=== PATIENT | female | born 1960 | race Caucasian/White ===

== ENCOUNTER 2018-04-04 18:45 | Emergency (ER) | payer MEDICARE ==
[2018-04-04] MEDS ORDERED: TORAdol 30 mg Injection IM ONE (19:16)
[2018-04-04] MEDS ORDERED: Tylenol #3 Tablet PO ONE (19:17)
[2018-04-04] MEDS ORDERED: AMOXIL 500 MG PO ONE (19:17)
--- NOTE | 2018-04-04 19:20 | ERPHSYRPT ---
- History of Present Illness Time Seen by Provider: 04/04/18 19:05 Source: patient Exam Limitations: clinical condition Patient Subjective Stated Complaint: Pt arrives to ER via EMS from home with left sided dental pain for past 3-4 days, became worse last night. Denies emergency, states called 911 because she does not have a car. Has not called Dentist or PCP. Triage Nursing Assessment: no swelling or difficulty breathing or swallowing. Physician History: PATIENT WITH A HISTORY OF DIABETES, HYPERTENSION COMPLAINS OF BILATERAL JAW PAIN , OVER THE PAST 3 DAYS. DENIES SINUS PRESSURE, SORETHROAT, FEVER, CHILLS OR COUGH. Timing/Duration: gradual onset Severity: moderate ENT Location: facial, dental Prearrival Treatment: no prearrival treatment Modifying Factors: Improves With: nothing Associated Symptoms: ear pain (L) Allergies/Adverse Reactions: No Known Drug Allergies Allergy (Verified 04/04/18 18:49) Home Medications: Fenofibrate,Micronized 145 mg* [Tricor 145 MG] 145 mg PO HS 10/21/13 [History ] Gabapentin 600 mg PO TID 10/21/13 [History] Lisinopril 20 mg [Zestril 20 MG] 20 mg PO DAILY 10/21/13 [History] Metformin HCl 1000 mg [Glucophage 1000 MG] 1,000 mg PO BID 10/21/13 [History] Paroxetine HCl 20 mg PO DAILY 10/21/13 [History] Pravastatin Sodium 20 mg PO DAILY 10/21/13 [History] Insulin Aspart [NovoLOG Insulin] 60 unit SQ UD 07/09/16 [History] Insulin Degludec [Tresiba Flextouch U-100] 160 unit SQ UD 07/09/16 [History] Carvedilol [Coreg] 6.25 mg PO DAILY 03/29/18 [History] Exenatide Microspheres [Bydureon Bcise] 2 mg SQ 04/04/18 [History] Oxybutynin Chloride [Oxybutynin Chloride ER] 10 mg PO 04/04/18 [History] Hx Tetanus, Diphtheria Vaccination/Date Given: Yes Hx Influenza Vaccination/Date Given: Yes Hx Pneumococcal Vaccination/Date Given: No - Review of Systems Constitutional: No Fever, No Chills Eyes: No Symptoms Ears, Nose, & Throat: No Symptoms, Other (DENTAL PAIN) Respiratory: Stridor, No Cough, No Dyspnea Cardiac: No Chest Pain, No Edema, No Syncope Abdominal/Gastrointestinal: No Abdominal Pain, No Nausea, No Vomiting, No Diarrhea Genitourinary Symptoms: No Dysuria Musculoskeletal: No Back Pain, No Neck Pain Skin: No Rash Neurological: No Dizziness, No Focal Weakness, No Sensory Changes Psychological: No Symptoms Endocrine: No Symptoms All Other Systems: Reviewed and Negative - Past Medical History Pertinent Past Medical History: Yes Neurological History: No Pertinent History ENT History: No Pertinent History Cardiac History: High Cholesterol, Hypertension Respiratory History: Sleep Apnea Endocrine Medical History: Diabetes Type I Musculoskeletal History: No Pertinent History GI Medical History: No Pertinent History, Hemorrhoids History: No Pertinent History Psycho-Social History: Anxiety Female Reproductive Disorders: No Pertinent History - Past Surgical History Past Surgical History: Yes Neuro Surgical History: No Pertinent History Cardiac: No Pertinent History Respiratory: No Pertinent History Gastrointestinal: Cholecystectomy Genitourinary: No Pertinent History Musculoskeletal: Amputation, Prosthesis Female Surgical History: Hysterectomy Other Surgical History: T & A, lt bka - Social History Smoking Status: Former smoker How long have you smoked: 30 years Exposure to second hand smoke: Yes Drug Use: none Patient Lives Alone: No - Female History Hx Now: No - Nursing Vital Signs Nursing Vital Signs: Initial Vital Signs Temperature 98.8 F 04/04/18 18:52 Pulse Rate 63 04/04/18 18:52 Respiratory Rate 18 04/04/18 18:52 Blood Pressure 131/73 04/04/18 18:52 O2 Sat by Pulse Oximetry 94 L 04/04/18 18:52 Pain Scale Pain Intensity 10 - Physical Exam General Appearance: no apparent distress Eye Exam: bilateral eye: normal inspection, PERRL, EOMI Ear Exam: bilateral ear: auricle normal, canal normal, TM normal Throat Exam: pharynx normal (NO GINGIVAL SWELLING OR TENDERNESS), dental tenderness (WIDESPREAD DENTAL CARIES) Neck Exam: normal inspection Cardiovascular/Respiratory Exam: chest non-tender, normal breath sounds SpO2 Interpretation: normal SpO2: 94 Oxygen Delivery: Room Air Ordered Tests: Medication Summary Discontinued Medications Generic Name Dose Route Start Last Admin Trade Name Freq PRN Reason Stop Dose Admin Acetaminophen/Codeine Phosphate 2 tab 04/04/18 19:17 Tylenol #3 Tablet PO 04/04/18 19:18 SENT HOME W/ PATIENT ONE Amoxicillin 500 mg 04/04/18 19:17 Amoxil 500 Mg PO 04/04/18 19:18 STAT ONE Ketorolac Tromethamine 60 mg 04/04/18 19:16 Toradol 30 Mg Injection IM 04/04/18 19:17 STAT ONE - Progress Progress: pain not gone completely Progress Note: 04/04/18 19:23 TORADOL 60MG IM, AMOXICILLIN 500MG ORALLY Counseled pt/family regarding: diagnosis, need for follow-up - Departure Time of Disposition: 19:30 Departure Disposition: Home Clinical Impression: WIDESPREAD DENTAL CARIES Condition: Stable Critical Care Time: No Referrals: ROGERIO WHITING NP [Primary Care Provider] - Additional Instructions: TORADOL 10 MG EVERY 6 HOURS NEEDED OR PAIN. TYLENOL #3 EVERY 4 HOURS FOR SEVERE PAIN. ANTIBIOTIC AMOXICILLIN 500MG EVERY 8 HOURS FOR 10 DAYS. CONSULT A DENTIST FOR FOLLOWUP. Prescriptions: Ketorolac Tromethamine [Toradol] 10 mg PO Q6H PRN PRN #20 tablet PRN Reason: Pain Amoxicillin 500 mg PO TID #30 tablet
[2018-04-04] MEDS ORDERED: TORAdol 30 mg Injection ONE (19:24)
[2018-04-04] MEDS ORDERED: AMOXIL 500 MG ONE (19:25)
[2018-04-04] MEDS ORDERED: Tylenol #3 Tablet ONE (19:25)
[2018-04-04 19:59] VITALS: BP 102/72; PULSE 71; O2SAT 90
== END 2018-04-04 20:01 | disposition home or self-care (01) ==
LOC: ED 18:45
DX: K02.9 Dental caries, unspecified (principal); R68.84 Jaw pain; H92.02 Otalgia, left ear; Z79.899 Other long term (current) drug therapy
CPT/HCPCS: 96372; 99284; J1885; A9270-GY

== ENCOUNTER 2019-12-24 13:42 | Inpatient (IN) | payer MEDICARE ==
[2019-12-24] MEDS ORDERED: Sodium Chloride 0.9% 1000 ML 1,000 ML IV STA (14:01)
[2019-12-24] MEDS ORDERED: Sodium Chloride 0.9% 1000 ML 1,000 ML ONE (14:05)
[2019-12-24 14:52] LABS: Absolute Neutrophil Ct (ANC) 9.82 (1.4-6.9); BASOPHIL % 0.1 % (0.0-0.4); Basophil (Absolute #) 0.01 (0-0.4); Eosinophil % 0.1 % (0.00-5.0); Eosinophil (Absolute #) 0.01 (0-0.5); Hematocrit 56.3 % (35-47); Hemoglobin 17.7 gm/dl (12.0-16.0); Lymphocyte (Absolute #) 0.78 (1.0-4.6); Lymphocytes % 6.9 % (24.0-44.0); Mean Cell Volume 86.6 fl (78-100); Mean Corpuscular Hemoglobin 27.2 pg (26-32); Mean Corpuscular Hgb Concent. 31.4 g/dl (32-36); Mean Platelet Volume 10.8 fl (7.5-11.0); Monocyte (Absolute #) 0.67 (0.0-1.3); Monocytes % 5.9 % (0.0-12.0); Platelet Count 179 K/mm3 (150-450); Red Cell Distribution Width 19.8 % (11.5-14.0); White Blood Count 11.3 K/mm3 (4.0-10.5)
[2019-12-24 15:03] LABS: Appearance SLIGHTLY CLOUDY (CLEAR); Bacteria MODERATE /HPF (NEGATIVE); Bilirubin NEGATIVE (NEGATIVE); Blood LARGE Ery/ul (0-5); Glucose >=500 mg/dL (NEGATIVE); Ketones TRACE (NEGATIVE); Leukocyte Esterase NEGATIVE (NEGATIVE); Mucus SLIGHT /HPF (NEGATIVE); Nitrite POSITIVE (NEGATIVE); Protein,Urine Dip >=500 (Negative); Specific Gravity 1.031 (1.005-1.025); Urobilinogen NEGATIVE mg/dL (0-1)
[2019-12-24 15:04] LABS: INR 1.3 (0.8-3.0); PROTIME 14.8 SECONDS (9.95-12.35)
[2019-12-24 15:11] LABS: VBG BASE EXCESS -0.5 (-2.0-2.0); VBG CARBOXYHEMOGLOBIN 10.4 % T HGB (0.0-6.9); VBG HCO3- 23.1 meq/L (22-28); VBG HEMOGLOBIN 18.8; VBG O2 SATURATION 85.4 (95-100); VBG POTASSIUM 5.3 (3.5-5.1); VBG pH 7.44 (7.32-7.42)
[2019-12-24 15:15] LABS: Amphetamine,Urine NEGATIVE (NEGATIVE); Barbiturate,Urine NEGATIVE (NEGATIVE); Benzodiazepine,Urine NEGATIVE (NEGATIVE); Cocaine,Urine NEGATIVE (NEGATIVE); Methadone,Urine NEGATIVE (NEGATIVE); Opiate,Urine NEGATIVE (NEGATIVE); PCP,Urine NEGATIVE (NEGATIVE); THC,Urine NEGATIVE (NEGATIVE)
[2019-12-24] MEDS ORDERED: HUMULIN R IV ONE ×2 (15:23→16:51)
[2019-12-24] MEDS ORDERED: HUMULIN R ONE ×2 (15:34→17:06)
[2019-12-24 15:39] LABS: ALBUMIN 4.2 g/dL (3.5-5.0); ALKALINE PHOSPHATASE 78 U/L (38-126); AMYLASE 70 U/L (30-110); BLOOD UREA NITROGEN 28 mg/dL (7-17); CHLORIDE 100 mmol/L (98-107); Carbon Dioxide 27 mmol/L (22-30); Creatinine 1 0.66 mg/dL (0.52-1.04); Glucose 432 mg/dL (74-106); LIPASE 59 U/L (23-300); NT PRO BNP 1320 pg/mL (0-900); Potassium 4.7 mmol/L (3.5-5.1); SGOT/AST 118 U/L (14-36); SGPT/ALT 56 U/L (0-35); SODIUM 139 mmol/L (137-145); Total Protein 8.1 g/dL (6.3-8.2)
[2019-12-24 15:53] LABS: CK-Creatinine Phosphokinase 4157 U/L (30-135)
--- NOTE | 2019-12-24 16:43 | XRAY ---
Indication: Abdomen pain. Multiple contiguous axial images obtained through the abdomen and pelvis using 80 cc of Isovue 370 contrast only. Comparison: None Portion of left abdominal wall is not completely included in the [id number] due to patient body habitus. Lung bases degraded by respiration artifact. Mild bibasilar atelectasis/scarring and right lower lobe calcified granuloma. No consolidation/effusion. Heart is enlarged. Noncontrasted stomach and bowel loops appear nonobstructed. Normal appendix. No free fluid/air. Fatty hepatomegaly measuring 23 cm and previous cholecystectomy. Also 16 cm splenomegaly. No free fluid/air. 2.2 cm left adrenal fatty adenoma. Guzman balloon catheter empties the urinary bladder. Remaining liver, pancreas, spleen, adrenal glands, kidneys, and ureters appear unremarkable. Mild scattered aortoiliac calcifications. No AAA or pathologic retroperitoneal lymphadenopathy. Osseous structures intact with mild degenerative changes throughout the thoracolumbar spine. Impression: 1. Cardiomegaly without effusion. 2. Fatty hepatomegaly, splenomegaly, left adrenal adenoma, and Guzman catheter in situ. 3. Remaining CT abdomen/pelvis with conscious exam is negative.
--- NOTE | 2019-12-24 16:44 | XRAY ---
Indication: Chest pain. Comparison: None Portable chest demonstrates cardiomegaly and a few calcified granulomas and minimal bibasilar atelectasis/scarring. No focal infiltrate, consolidation, or large effusion. Bony thorax intact with mild osteopenia and mild degenerative changes. Impression: Cardiomegaly and evidence for old granulomatous disease. Negative for acute pneumonic process or CHF.
[2019-12-24] MEDS ORDERED: ROCEPHIN 1 Gm-D5w 50 ml Bag** 1 G/50 ML IVPB IV STA (17:22)
--- NOTE | 2019-12-24 17:29 | ERPHSYRPT ---
- History of Present Illness Time Seen by Provider: 12/24/19 14:30 Patient Subjective Stated Complaint: Pt presents to ER, confused and nonverbal with ER Staff. Able to shake head "yes" or "no" when asked basic questions. Triage Nursing Assessment: Pt presents to ER by ambulance. EMS states that the patient was found down in apartment unknown amount of time. Pt presents confused and disoriented. Covered in fecal matter and urine. Redness noted to groin and pressure areas from incontinence and being down on ground. Pt was found by a blele coming into apartment to work on her AC unit. Pt resp are shallow and irregular. Initial O2 saturation was 85% on room air. Pt is pale, cool, and diaphoretic. Wheezes noted in left lung. Right lung sounds clear but diminished. Pt abd soft and round. Pt does not have any noted deformity or traumatic injuries noted. Pt eyes 2mm bilaterally and sluggish Physician History: A 59-year-old female who was found down by the air conditioning man who came to her home to do some maintenance. She was found on the floor she was unresponsive initially she was covered with feces. He was last known to be normal on Tuesday and insulin-dependent diabetic. Baseline/Normal Cognition: poor alertness Current Cognition: poor alertness Allergies/Adverse Reactions: No Known Drug Allergies Allergy (Unverified 12/24/19 14:38) Hx Tetanus, Diphtheria Vaccination/Date Given: Yes Hx Influenza Vaccination/Date Given: Yes Hx Pneumococcal Vaccination/Date Given: Yes Immunizations Up to Date: Yes Travel Risk - International Travel Have you traveled outside of the country in past 3 weeks: No - Coronavirus Screening Are you exhibiting any of the following symptoms?: No Close contact with a COVID-19 positive Pt in past 14-21 Days: No - Review of Systems All Other Systems: Unable due to condition - Past Medical History Pertinent Past Medical History: Yes Cardiac History: Hypertension Endocrine Medical History: Diabetes Type II Psycho-Social History: Anxiety, Depression Other Medical History: Below knee amputation r/t diabetes - Past Surgical History Past Surgical History: Yes Gastrointestinal: Cholecystectomy Female Surgical History: Hysterectomy, Tubal Ligation Other Surgical History: below knee amputation left leg / r/t diabetes - Social History Smoking Status: Former smoker Exposure to second hand smoke: No Drug Use: none Patient Lives Alone: Yes - Nursing Vital Signs Nursing Vital Signs: Initial Vital Signs Temperature 98.8 F 12/24/19 14:00 Pulse Rate 79 12/24/19 14:00 Respiratory Rate 16 12/24/19 14:00 Blood Pressure 96/71 12/24/19 14:00 O2 Sat by Pulse Oximetry 85 L 12/24/19 14:00 - [place] Coma Scale Best Eye Response ([place]): (4) open spontaneously Best Verbal Response ([place]): (3) inappropriate words Best Motor Response ([place]): (4) withdraws to pain [place] Total: 11 - Physical Exam General Appearance: moderate distress, lethargy Eye Exam: bilateral eye: normal inspection, PERRL, EOMI Ears, Nose, Throat Exam: normal ENT inspection, moist mucous membranes Neck Exam: normal inspection, non-tender, supple Respiratory: normal breath sounds, lungs clear, airway intact, No respiratory distress Cardiovascular: tachycardia Gastrointestinal: tenderness, guarding Pelvic Exam: not done Rectal Exam: deferred Back Exam: normal inspection, normal range of motion Extremity Exam: other (BKA the left) 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 Exam: No abnormal eye position, No facial droop, No gaze palsy, No tongue deviation to R Skin Exam: other (We will type rash in the perineal area) SpO2 Interpretation: normal SpO2: 100 O2 Delivery: Nasal Cannula - Course Nursing assessment & vital signs reviewed: Yes EKG Interpreted by Me: RATE (85), NORMAL AXIS, NORMAL INTERVALS, Non-specific ST Changes - Radiology Exams Chest X-ray Interpretation: Other (CT of the abdomen pelvis no acute findings x-ray shows cardiomegaly and evidence for old granulomatous disease negative for acute process) - CT Exams Chest CT Interpretation: Other (No acute process of the abdomen and pelvis) Ordered Tests: Active Orders 24 hr Category Date Time Status ABDOMEN AND PELVIS W CONTRAST [CT] Stat Exams 12/24/19 14:01 Completed CHEST 1 VIEW (PORTABLE) Stat Exams 12/24/19 14:01 Completed HEAD WITHOUT CONTRAST [CT] Stat Exams 12/24/19 17:14 Ordered AMYLASE Stat Lab 12/24/19 14:40 Completed BLOOD CULTURE Stat Lab 12/24/19 14:40 Received CBC W DIFF Stat Lab 12/24/19 14:40 Completed CK-Creatinine Phosphokinase Stat Lab 12/24/19 14:40 Completed CMP Stat Lab 12/24/19 14:40 Completed CULTURE,URINE Stat Lab 12/24/19 Received D-DIMER QUANTITATIVE Stat Lab 12/24/19 14:40 Completed LIPASE Stat Lab 12/24/19 14:40 Completed Lactic Acid Stat Lab 12/24/19 17:04 Received Lactic Acid Urgent Lab 12/24/19 14:50 Completed MAGNESIUM Stat Lab 12/24/19 14:40 Completed NT PRO BNP Stat Lab 12/24/19 14:40 Completed PROTIME WITH INR Stat Lab 12/24/19 14:40 Completed TROPONIN Q3H Lab 12/24/19 14:40 Completed TROPONIN Q3H Lab 12/24/19 17:15 Ordered TROPONIN Q3H Lab 12/24/19 20:15 Ordered TROPONIN Q3H Lab 12/24/19 23:15 Ordered TROPONIN Q3H Lab 12/25/19 02:15 Ordered UA W/RFX UR CULTURE Stat Lab 12/24/19 Completed Urine Triage Profile Stat Lab 12/24/19 Completed VENOUS BLOOD GAS Urgent Lab 12/24/19 14:50 Completed Medication Summary Discontinued Medications Generic Name Dose Route Start Last Admin Trade Name Freq PRN Reason Stop Dose Admin Sodium Chloride 1,000 mls @ 999 mls/hr 12/24/19 14:01 12/24/19 14:06 Sodium Chloride 0.9% 1000 Ml IV 12/24/19 15:01 999 mls/hr .Q1H1M STA Administration Sodium Chloride Confirm 12/24/19 14:05 Sodium Chloride 0.9% 1000 Ml Administered 12/24/19 14:06 Dose 1,000 mls @ ud .ROUTE .STK-MED ONE Insulin Human Regular 10 unit 12/24/19 15:23 12/24/19 15:36 Humulin R IV 12/24/19 15:24 10 unit STAT ONE Administration Insulin Human Regular Confirm 12/24/19 15:34 Humulin R Administered 12/24/19 15:35 Dose 10 unit .ROUTE .STK-MED ONE Insulin Human Regular 15 unit 12/24/19 16:51 12/24/19 17:11 Humulin R IV 12/24/19 16:52 15 unit STAT ONE Administration Insulin Human Regular Confirm 12/24/19 17:06 Humulin R Administered 12/24/19 17:07 Dose 15 unit .ROUTE .STK-MED ONE Lab/Rad Data: Laboratory Result Diagrams 12/24/19 14:40 12/24/19 14:40 Laboratory Results 12/24/19 12/24/19 12/24/19 Range/Units Unknown Unknown 14:50 WBC (4.0-10.5) K/mm3 RBC (4.1-5.4) M/mm3 Hgb (12.0-16.0) gm/dl Hct (35-47) % MCV (78-100) fl MCH (26-32) pg MCHC (32-36) g/dl RDW (11.5-14.0) % Plt Count (150-450) K/mm3 MPV (7.5-11.0) fl Gran % (36.0-66.0) % Eos # (Auto) (0-0.5) Absolute Lymphs (auto) (1.0-4.6) Absolute Monos (auto) (0.0-1.3) Lymphocytes % (24.0-44.0) % Monocytes % (0.0-12.0) % Eosinophils % (0.00-5.0) % Basophils % (0.0-0.4) % Absolute Granulocytes (1.4-6.9) Basophils # (0-0.4) PT (9.95-12.35) SECONDS INR (0.8-3.0) D-Dimer (215-500) ng/mL pO2/FiO2 Ratio 100.0 % VBG pH 7.44 H (7.32-7.42) VBG pCO2 at Pat Temp 34 L (42-55) mm/Hg VBG pO2 at Pat Temp 48 H (25-40) mm/Hg VBG HCO3 23.1 (22-28) meq/L VBG O2 Sat (Edson) 85.4 L (95-100) VBG Base Excess -0.5 (-2.0-2.0) VBG Hemoglobin 18.8 VBG Carboxyhemoglobin 10.4 H* (0.0-6.9) % T HGB POC Potassium 5.3 H (3.5-5.1) Sodium (137-145) mmol/L Potassium (3.5-5.1) mmol/L Chloride (98-107) mmol/L Carbon Dioxide (22-30) mmol/L Anion Gap (5-15) MEQ/L BUN (7-17) mg/dL Creatinine (0.52-1.04) mg/dL Estimated GFR ML/MIN Glucose (74-106) mg/dL Lactic Acid (0.4-2.0) Calcium (8.4-10.2) mg/dL Magnesium (1.6-2.3) mg/dL Total Bilirubin (0.2-1.3) mg/dL AST (14-36) U/L ALT (0-35) U/L Alkaline Phosphatase (38-126) U/L Creatine Kinase (30-135) U/L Troponin I (0.000-0.034) ng/mL NT-Pro-B Natriuret Pep (0-900) pg/mL Serum Total Protein (6.3-8.2) g/dL Albumin (3.5-5.0) g/dL Amylase (30-110) U/L Lipase (23-300) U/L Urine Color YELLOW (YELLOW) Urine Appearance SLIGHTLY CLOUDY (CLEAR) Urine pH 5.0 (5-6) Ur Specific [place] 1.031 (1.005-1.025) Urine Protein >=500 (Negative) Urine Ketones TRACE (NEGATIVE) Urine Blood LARGE (0-5) Darrin/ul Urine Nitrite POSITIVE (NEGATIVE) Urine Bilirubin NEGATIVE (NEGATIVE) Urine Urobilinogen NEGATIVE (0-1) mg/dL Ur Leukocyte Esterase NEGATIVE (NEGATIVE) Urine WBC (Auto) 11-15 (0-5) /HPF Urine RBC (Auto) NONE (0-2) /HPF U Epithel Cells (Auto) NONE (FEW) /HPF Urine Bacteria (Auto) MODERATE (NEGATIVE) /HPF Urine Mucus (Auto) SLIGHT (NEGATIVE) /HPF Urine Culture Reflexed ORDERED SEPARATELY (NO) Urine Glucose >=500 (NEGATIVE) mg/dL Urine Opiates Level NEGATIVE (NEGATIVE) Ur Methadone NEGATIVE (NEGATIVE) Urine Barbiturates NEGATIVE (NEGATIVE) Ur Phencyclidine (PCP) NEGATIVE (NEGATIVE) Urine Amphetamine NEGATIVE (NEGATIVE) U Benzodiazepine Level NEGATIVE (NEGATIVE) Urine Cocaine NEGATIVE (NEGATIVE) Urine Marijuana (THC) NEGATIVE (NEGATIVE) 12/24/19 12/24/19 12/24/19 Range/Units 14:50 14:40 14:40 WBC (4.0-10.5) K/mm3 RBC (4.1-5.4) M/mm3 Hgb (12.0-16.0) gm/dl Hct (35-47) % MCV (78-100) fl MCH (26-32) pg MCHC (32-36) g/dl RDW (11.5-14.0) % Plt Count (150-450) K/mm3 MPV (7.5-11.0) fl Gran % (36.0-66.0) % Eos # (Auto) (0-0.5) Absolute Lymphs (auto) (1.0-4.6) Absolute Monos (auto) (0.0-1.3) Lymphocytes % (24.0-44.0) % Monocytes % (0.0-12.0) % Eosinophils % (0.00-5.0) % Basophils % (0.0-0.4) % Absolute Granulocytes (1.4-6.9) Basophils # (0-0.4) PT 14.8 H (9.95-12.35) SECONDS INR 1.30 (0.8-3.0) D-Dimer 2164 H* (215-500) ng/mL pO2/FiO2 Ratio % VBG pH (7.32-7.42) VBG pCO2 at Pat Temp (42-55) mm/Hg VBG pO2 at Pat Temp (25-40) mm/Hg VBG HCO3 (22-28) meq/L VBG O2 Sat (Edson) (95-100) VBG Base Excess (-2.0-2.0) VBG Hemoglobin VBG Carboxyhemoglobin (0.0-6.9) % T HGB POC Potassium (3.5-5.1) Sodium (137-145) mmol/L Potassium (3.5-5.1) mmol/L Chloride (98-107) mmol/L Carbon Dioxide (22-30) mmol/L Anion Gap (5-15) MEQ/L BUN (7-17) mg/dL Creatinine (0.52-1.04) mg/dL Estimated GFR ML/MIN Glucose (74-106) mg/dL Lactic Acid 4.1 H (0.4-2.0) Calcium (8.4-10.2) mg/dL Magnesium (1.6-2.3) mg/dL Total Bilirubin (0.2-1.3) mg/dL AST (14-36) U/L ALT (0-35) U/L Alkaline Phosphatase (38-126) U/L Creatine Kinase (30-135) U/L Troponin I 0.065 H* (0.000-0.034) ng/mL NT-Pro-B Natriuret Pep (0-900) pg/mL Serum Total Protein (6.3-8.2) g/dL Albumin (3.5-5.0) g/dL Amylase (30-110) U/L Lipase (23-300) U/L Urine Color (YELLOW) Urine Appearance (CLEAR) Urine pH (5-6) Ur Specific [place] (1.005-1.025) Urine Protein (Negative) Urine Ketones (NEGATIVE) Urine Blood (0-5) Darrin/ul Urine Nitrite (NEGATIVE) Urine Bilirubin (NEGATIVE) Urine Urobilinogen (0-1) mg/dL Ur Leukocyte Esterase (NEGATIVE) Urine WBC (Auto) (0-5) /HPF Urine RBC (Auto) (0-2) /HPF U Epithel Cells (Auto) (FEW) /HPF Urine Bacteria (Auto) (NEGATIVE) /HPF Urine Mucus (Auto) (NEGATIVE) /HPF Urine Culture Reflexed (NO) Urine Glucose (NEGATIVE) mg/dL Urine Opiates Level (NEGATIVE) Ur Methadone (NEGATIVE) Urine Barbiturates (NEGATIVE) Ur Phencyclidine (PCP) (NEGATIVE) Urine Amphetamine (NEGATIVE) U Benzodiazepine Level (NEGATIVE) Urine Cocaine (NEGATIVE) Urine Marijuana (THC) (NEGATIVE) 12/24/19 12/24/19 Range/Units 14:40 14:40 WBC 11.3 H (4.0-10.5) K/mm3 RBC 6.50 H* (4.1-5.4) M/mm3 Hgb 17.7 H (12.0-16.0) gm/dl Hct 56.3 H (35-47) % MCV 86.6 (78-100) fl MCH 27.2 (26-32) pg MCHC 31.4 L (32-36) g/dl RDW 19.8 H (11.5-14.0) % Plt Count 179 (150-450) K/mm3 MPV 10.8 (7.5-11.0) fl Gran % 87.0 H (36.0-66.0) % Eos # (Auto) 0.01 (0-0.5) Absolute Lymphs (auto) 0.78 L (1.0-4.6) Absolute Monos (auto) 0.67 (0.0-1.3) Lymphocytes % 6.9 L (24.0-44.0) % Monocytes % 5.9 (0.0-12.0) % Eosinophils % 0.1 (0.00-5.0) % Basophils % 0.1 (0.0-0.4) % Absolute Granulocytes 9.82 H (1.4-6.9) Basophils # 0.01 (0-0.4) PT (9.95-12.35) SECONDS INR (0.8-3.0) D-Dimer (215-500) ng/mL pO2/FiO2 Ratio % VBG pH (7.32-7.42) VBG pCO2 at Pat Temp (42-55) mm/Hg VBG pO2 at Pat Temp (25-40) mm/Hg VBG HCO3 (22-28) meq/L VBG O2 Sat (Edson) (95-100) VBG Base Excess (-2.0-2.0) VBG Hemoglobin VBG Carboxyhemoglobin (0.0-6.9) % T HGB POC Potassium (3.5-5.1) Sodium 139 (137-145) mmol/L Potassium 4.7 (3.5-5.1) mmol/L Chloride 100 (98-107) mmol/L Carbon Dioxide 27 (22-30) mmol/L Anion Gap 17.0 H (5-15) MEQ/L BUN 28 H (7-17) mg/dL Creatinine 0.66 (0.52-1.04) mg/dL Estimated GFR > 60.0 ML/MIN Glucose 432 H (74-106) mg/dL Lactic Acid (0.4-2.0) Calcium 10.0 (8.4-10.2) mg/dL Magnesium 2.0 (1.6-2.3) mg/dL Total Bilirubin 1.40 H (0.2-1.3) mg/dL AST 118 H (14-36) U/L ALT 56 H (0-35) U/L Alkaline Phosphatase 78 (38-126) U/L Creatine Kinase 4157 H (30-135) U/L Troponin I (0.000-0.034) ng/mL NT-Pro-B Natriuret Pep 1320 H (0-900) pg/mL Serum Total Protein 8.1 (6.3-8.2) g/dL Albumin 4.2 (3.5-5.0) g/dL Amylase 70 (30-110) U/L Lipase 59 (23-300) U/L Urine Color (YELLOW) Urine Appearance (CLEAR) Urine pH (5-6) Ur Specific [place] (1.005-1.025) Urine Protein (Negative) Urine Ketones (NEGATIVE) Urine Blood (0-5) Darrin/ul Urine Nitrite (NEGATIVE) Urine Bilirubin (NEGATIVE) Urine Urobilinogen (0-1) mg/dL Ur Leukocyte Esterase (NEGATIVE) Urine WBC (Auto) (0-5) /HPF Urine RBC (Auto) (0-2) /HPF U Epithel Cells (Auto) (FEW) /HPF Urine Bacteria (Auto) (NEGATIVE) /HPF Urine Mucus (Auto) (NEGATIVE) /HPF Urine Culture Reflexed (NO) Urine Glucose (NEGATIVE) mg/dL Urine Opiates Level (NEGATIVE) Ur Methadone (NEGATIVE) Urine Barbiturates (NEGATIVE) Ur Phencyclidine (PCP) (NEGATIVE) Urine Amphetamine (NEGATIVE) U Benzodiazepine Level (NEGATIVE) Urine Cocaine (NEGATIVE) Urine Marijuana (THC) (NEGATIVE) - Progress Progress: improved - Departure Departure Disposition: In-patient Admission Clinical Impression: Rhabdomyolysis Condition: Serious Critical Care Time: Yes Critical Care Time(excluding separately billable procedures): Critical 30-74 mins Referrals: DOCTOR,NO FAMILY [Primary Care Provider] - Instructions: Altered Mental Status (DC)
[2019-12-24] MEDS ORDERED: ROCEPHIN 1 Gm-D5w 50 ml Bag** 1 G/50 ML IVPB IV ONE (18:39)
[2019-12-24] MEDS: HUMALOG SQ PRN (19:04)
[2019-12-24] MEDS: Sodium Chloride 0.9% 1000 ML 1,000 ML IV SCH (21:43)
[2019-12-24] MEDS: NYSTOP 30 GM CREAM TOP SCH (21:53)
[2019-12-25] MEDS ORDERED: HUMALOG ONE ×2 (00:26→03:30)
[2019-12-25] MEDS: HUMALOG SQ PRN ×6 (00:29→20:21)
[2019-12-25] MEDS: MORPHINE SULFATE 10 MG/ML IV PRN ×2 (01:10→07:03)
[2019-12-25] MEDS: Sodium Chloride 0.9% 1000 ML 1,000 ML IV SCH ×3 (02:48→17:02)
[2019-12-25 05:10] LABS: Hematocrit 51.3 % (35-47); Hemoglobin 15.9 gm/dl (12.0-16.0); Mean Cell Volume 86.9 fl (78-100); Mean Corpuscular Hemoglobin 26.9 pg (26-32); Mean Platelet Volume 11.2 fl (7.5-11.0); Platelet Count 187 K/mm3 (150-450); Red Cell Distribution Width 19.3 % (11.5-14.0)
[2019-12-25 05:28] LABS: BLOOD UREA NITROGEN 34 mg/dL (7-17); CHLORIDE 107 mmol/L (98-107); Calcium 9.2 mg/dL (8.4-10.2); Carbon Dioxide 29 mmol/L (22-30); Creatinine 1 0.67 mg/dL (0.52-1.04); Glucose 212 mg/dL (74-106); PREALBUMIN 9.27 mg/dL (17.6-36.0); Potassium 3.9 mmol/L (3.5-5.1); SODIUM 141 mmol/L (137-145)
--- NOTE | 2019-12-25 08:39 | XRAY ---
Indication: Acute mental status change. Confusion. Multiple contiguous axial images obtained through the head without contrast. Comparison: None Study is limited due to motion artifact even with repeat CT. No gross acute intracranial hemorrhage, abnormal extra-axial fluid collection, or mass effect. Fourth ventricle is midline without hydrocephalus. Chung-white matter differentiation is preserved. Bony calvarium grossly intact. Visualized left maxillary sinus shows moderate mucosal thickening. Remaining visualized paranasal sinuses and mastoid air cells are clear. Impression: Limited exam due to motion artifact. Left maxillary sinus disease. No gross acute intracranial abnormalities.
[2019-12-25] MEDS: HUMALOG IV SCH ×3 (09:32→17:02)
[2019-12-25] MEDS: ROCEPHIN 1 Gm-D5w 50 ml Bag** 1 G/50 ML IVPB IV SCH (09:47)
[2019-12-25] MEDS: NYSTOP 30 GM CREAM TOP SCH ×2 (09:47→22:19)
[2019-12-25] MEDS ORDERED: NEURONTIN 300 MG PO SCH (15:00)
[2019-12-25] MEDS: NEURONTIN 300 MG PO SCH ×2 (15:26→20:54)
[2019-12-25] MEDS: Coreg 3.125 MG PO SCH ×2 (15:26→20:53)
--- NOTE | 2019-12-25 16:48 | PCM.HP ---
History of Present Illness - Chief Complaint Chief Complaint: rhabdomylosis History of Present Illness: is a 59 year old female pt who was found down at home by the A/C repairman; pt was covered in feces. Was confused and non verbal in the ER. When I saw pt, she would sometimes answer questions, was asking for a drink. Her daughter was at bedside. In ER pt's CK was 4157. This morning BUN 34 and Cr 0.67 for eGFR> 60. Her BS on admission was 432 but is now 212 (dtr states that is "good for her.") Pt's a1c is 10.8. Was unable to chart immediately due to [employer] updates. This afternoon RN tells me that pt is talking and alert, likely near baseline. However, she is on 8L oxymask and her ABG with PaO2 of 64. Pt cannot have CT until 24h after her last CT with contrast; d-dimer is pending. - Review of Systems All Other Systems: Unable due to condition Medications & Allergies Home Medications: Home Medication List Fenofibrate,Micronized 145 mg* [Tricor 145 MG] 145 mg PO HS 10/21/13 [History Confirmed 07/09/16] Gabapentin 600 mg PO TID 10/21/13 [History Confirmed 03/29/18] Lisinopril 20 mg [Zestril 20 MG] 20 mg PO DAILY 10/21/13 [History Confirmed 03/29/18] Metformin HCl 1000 mg [Glucophage 1000 MG] 1,000 mg PO BID 10/21/13 [History Confirmed 03/29/18] Paroxetine HCl 20 mg PO DAILY 10/21/13 [History Confirmed 03/29/18] Pravastatin Sodium 20 mg PO DAILY 10/21/13 [History Confirmed 07/09/16] Insulin Aspart [NovoLOG Insulin] 60 unit SQ UD 07/09/16 [History Confirmed 03/29/18] Insulin Degludec [Tresiba Flextouch U-100] 160 unit SQ UD 07/09/16 [History Confirmed 03/29/18] Carvedilol [Coreg] 6.25 mg PO DAILY 03/29/18 [History] Amoxicillin 500 mg PO TID #30 tablet 04/04/18 [Rx] Exenatide Microspheres [Bydureon Bcise] 2 mg SQ 04/04/18 [History] Ketorolac Tromethamine [Toradol] 10 mg PO Q6H PRN PRN #20 tablet 04/04/18 [Rx] Oxybutynin Chloride [Oxybutynin Chloride ER] 10 mg PO 04/04/18 [History] Exenatide Microspheres [Bydureon Bcise] 2 mg SQ WEEKLY 12/24/19 [History Confirmed 12/24/19] Gabapentin 600 mg PO TID 12/24/19 [History Confirmed 12/24/19] Insulin Aspart Prot/Insuln Asp [Novolog Mix 70-30 Flexpen Syrn] 1 unit SQ UD 12/24/19 [History Confirmed 12/24/19] Insulin Degludec [Tresiba Flextouch U-200] 145 units SQ DAILY 12/24/19 [History Confirmed 12/24/19] Metformin HCl 1,000 mg PO BID 12/24/19 [History Confirmed 12/24/19] PARoxetine HCL [Paroxetine HCl] 20 mg PO DAILY 12/24/19 [History Confirmed 12/24/19] Pravastatin Sodium 20 mg PO DAILY 12/24/19 [History Confirmed 12/24/19] carvediloL [Carvedilol] 6.25 mg PO BID 12/24/19 [History Confirmed 12/24/19] Allergies/Adverse Reactions: Allergies Allergy/AdvReac Type Severity Reaction Status Date / Time No Known Drug Allergies Allergy Verified 12/25/19 15:09 - Past Medical History Past Medical History: Yes Neurological History: No Pertinent History ENT History: No Pertinent History Cardiac History: Hypertension Respiratory History: Sleep Apnea Endocrine Medical History: Diabetes Type II Musculoskelatal History: No Pertinent History GI Medical History: No Pertinent History, Hemorrhoids History: No Pertinent History Pyscho-Social History: Anxiety, Depression Reproductive Disorders: No Pertinent History Comment: Below knee amputation r/t diabetes - Female History Are you now?: No - Past Surgical History Past Surgical History: Yes Neuro Surgical History: No Pertinent History Cardiac History: No Pertinent History Respiratory Surgery: No Pertinent History GI Surgical History: Cholecystectomy Genitourinary Surgical Hx: No Pertinent History Musculskeletal Surgical Hx: Amputation, Prosthesis Female Surgical History: Hysterectomy, Tubal Ligation Other Surgical History: below knee amputation left leg / r/t diabetes - Social History Smoking Status: Former smoker How long have you smoked: 30 years Exposure to second hand smoke: No Alcohol: None Drug Use: none - Physical Exam Vital Signs: Vital Signs - 24 hr Temp Pulse Resp BP Pulse Ox 12/25/19 16:00 98.3 F 65 19 115/62 98 12/25/19 12:00 97.6 F 78 19 124/64 90 L 12/25/19 08:10 90 L 12/25/19 08:00 97.8 F 73 20 99/55 92 L 12/25/19 06:34 93 L 12/25/19 04:00 98.2 F 74 16 112/68 92 L 12/25/19 02:14 93 L 12/25/19 00:00 98.1 F 76 28 H 116/56 98 12/24/19 21:00 92 L 12/24/19 20:35 88 L 12/24/19 20:00 99.1 F 82 17 120/65 92 L 12/24/19 19:16 92 L 12/24/19 18:44 99 F 81 21 119/70 94 L 12/24/19 17:31 100 12/24/19 17:03 100.2 F 12/24/19 16:49 100.0 F 84 14 100 Oxygen-Last 24 hours Oxygen Flowrate (L/min)-RT 2 General Appearance: no apparent distress, obese, other (somnolent; wakes to voice/touch) Neurologic Exam: disoriented (oriented to place only) Ears, Nose, Throat Exam: moist mucous membranes Neck Exam: normal inspection Respiratory Exam: normal breath sounds, lungs clear, No crackles/rales, No rhonchi, No wheezing Gastrointestinal/Abdomen Exam: soft, normal bowel sounds, No tenderness, No distention, No mass, No guarding, No rebound Extremity Exam: No pedal edema, No tenderness Skin Exam: normal color, warm, dry, No rash Wound Assessment: Skin/Wound Assessment Wound/Incision Assessment Start: 12/24/19 18:54 Text: Status: Active Freq: Q6H Protocol: Document 12/25/19 14:00 SRI (Rec: 12/25/19 15:24 SRI [id number]) Wound/Incision Assessment BUTTOCK FOLD Wound Assessment Shift Assessment Wound Type PRESSURE Wound Stage Deep Tissue Injury Drainage Amount None General Appearance Open to air,Clean/Dry Surrounding Tissue Ross Results - Labs Lab/Micro Results: Accuchecks Date 12/25/19 Date 12/25/19 Date 12/25/19 Date 12/25/19 Date 12/24/19 Time 12:00 Time 08:00 Time 03:25 Time 00:00 Time 19:04 Accucheck Value: 210 Accucheck Value: 187 Accucheck Value: 202 Accucheck Value: 378 Accucheck Value: 350 Accucheck Value: 472 Lab Results-Last 24 Hours 12/24/19 12/24/19 12/24/19 Range/Units 14:40 17:04 17:40 WBC (4.0-10.5) K/mm3 RBC (4.1-5.4) M/mm3 Hgb (12.0-16.0) gm/dl Hct (35-47) % MCV (78-100) fl MCH (26-32) pg MCHC (32-36) g/dl RDW (11.5-14.0) % Plt Count (150-450) K/mm3 MPV (7.5-11.0) fl Sodium (137-145) mmol/L Potassium (3.5-5.1) mmol/L Chloride (98-107) mmol/L Carbon Dioxide (22-30) mmol/L Anion Gap (5-15) MEQ/L BUN (7-17) mg/dL Creatinine (0.52-1.04) mg/dL Estimated GFR ML/MIN Glucose (74-106) mg/dL Hemoglobin A1c 10.80 H (4.5-6.0) % Lactic Acid 2.0 (0.4-2.0) Calcium (8.4-10.2) mg/dL Creatine Kinase (30-135) U/L Troponin I 0.058 H* (0.000-0.034) ng/mL Prealbumin (17.6-36.0) mg/dL 12/24/19 12/24/19 12/25/19 Range/Units 20:15 23:40 02:00 WBC (4.0-10.5) K/mm3 RBC (4.1-5.4) M/mm3 Hgb (12.0-16.0) gm/dl Hct (35-47) % MCV (78-100) fl MCH (26-32) pg MCHC (32-36) g/dl RDW (11.5-14.0) % Plt Count (150-450) K/mm3 MPV (7.5-11.0) fl Sodium (137-145) mmol/L Potassium (3.5-5.1) mmol/L Chloride (98-107) mmol/L Carbon Dioxide (22-30) mmol/L Anion Gap (5-15) MEQ/L BUN (7-17) mg/dL Creatinine (0.52-1.04) mg/dL Estimated GFR ML/MIN Glucose (74-106) mg/dL Hemoglobin A1c (4.5-6.0) % Lactic Acid (0.4-2.0) Calcium (8.4-10.2) mg/dL Creatine Kinase (30-135) U/L Troponin I 0.061 H* 0.049 H* 0.049 H* (0.000-0.034) ng/mL Prealbumin (17.6-36.0) mg/dL 12/25/19 12/25/19 12/25/19 Range/Units 04:31 04:31 07:45 WBC 9.0 (4.0-10.5) K/mm3 RBC 5.90 H (4.1-5.4) M/mm3 Hgb 15.9 (12.0-16.0) gm/dl Hct 51.3 H (35-47) % MCV 86.9 (78-100) fl MCH 26.9 (26-32) pg MCHC 31.0 L (32-36) g/dl RDW 19.3 H (11.5-14.0) % Plt Count 187 (150-450) K/mm3 MPV 11.2 H (7.5-11.0) fl Sodium 141 (137-145) mmol/L Potassium 3.9 (3.5-5.1) mmol/L Chloride 107 (98-107) mmol/L Carbon Dioxide 29 (22-30) mmol/L Anion Gap 9.0 (5-15) MEQ/L BUN 34 H (7-17) mg/dL Creatinine 0.67 (0.52-1.04) mg/dL Estimated GFR > 60.0 ML/MIN Glucose 212 H (74-106) mg/dL Hemoglobin A1c (4.5-6.0) % Lactic Acid (0.4-2.0) Calcium 9.2 (8.4-10.2) mg/dL Creatine Kinase 872 H (30-135) U/L Troponin I (0.000-0.034) ng/mL Prealbumin 9.27 L (17.6-36.0) mg/dL Microbiology 12/24/19 Unknown Urine Culture - Preliminary Catherized GRAM NEGATIVE ID AND SENSITIVITY PENDING Accuchecks Date 12/25/19 Date 12/25/19 Date 12/25/19 Date 12/25/19 Date 12/24/19 Time 12:00 Time 08:00 Time 03:25 Time 00:00 Time 19:04 Accucheck Value: 210 Accucheck Value: 187 Accucheck Value: 202 Accucheck Value: 378 Accucheck Value: 350 Accucheck Value: 472 - Radiology Impressions Radiology Exams & Impressions: Radiology Procedures Category Date Time Status ABDOMEN AND PELVIS W CONTRAST [CT] Stat Exams 12/24/19 14:01 Completed CAROTID BILATERAL [US] Routine Exams 12/25/19 Ordered CHEST 1 VIEW (PORTABLE) Stat Exams 12/24/19 14:01 Completed CHEST WITH CONTRAST [CT] Stat Exams 12/25/19 14:33 Ordered HEAD WITHOUT CONTRAST [CT] Stat Exams 12/24/19 18:18 Completed MRA BRAIN WITH CONTRAST [MRI] Routine Exams 12/25/19 16:39 Ordered - Other Procedures and Tests Respiratory Therapy 12/24/19 19:14 Oxygen Nasal Cannula 2 lpm Assessment/Plan (1) Hypoxemia Current Visit: Yes Status: Acute Assessment & Plan: Unsure the etiology; check cta chest to r/o PE. Code(s): R09.02 - HYPOXEMIA (2) Altered mental state Current Visit: Yes Status: Resolved Qualifiers: Altered mental status type: disorientation Qualified Code(s): R41.0 - Disorientation, unspecified Assessment & Plan: seems better, unsure if fully resolved. ?CVA. Swallow study prior to PO intake. Code(s): R41.82 - ALTERED MENTAL STATUS, UNSPECIFIED (3) Rhabdomyolysis Current Visit: Yes Status: Acute Qualifiers: Rhabdomyolysis type: traumatic Encounter type: initial encounter Qualified Code(s): T79.6XXA - Traumatic ischemia of muscle, initial encounter Assessment & Plan: rechecking CK now and in the morning. Code(s): M62.82 - RHABDOMYOLYSIS (4) Urinary tract infection Current Visit: No Status: Acute Qualifiers: Urinary tract infection type: site unspecified Hematuria presence: without hematuria Qualified Code(s): N39.0 - Urinary tract infection, site not specified Assessment & Plan: On IV rocephin day #2. Cx pending. Code(s): N39.0 - URINARY TRACT INFECTION, SITE NOT SPECIFIED (5) Anxiety and depression Current Visit: Yes Status: Chronic Code(s): F41.9 - ANXIETY DISORDER, UNSPECIFIED; F32.9 - MAJOR DEPRESSIVE DISORDER, SINGLE EPISODE, UNSPECIFIED (6) Below knee amputation Current Visit: Yes Status: Chronic Code(s): S88.119A - COMPLETE TRAUM AMP AT LEV BETW KN & ANKL, UNSP LOW LEG, INIT (7) Pressure ulcer Current Visit: Yes Status: Acute Qualifiers: Pressure injury location: sacral region Pressure injury stage: stage 2 Qualified Code(s): L89.152 - Pressure ulcer of sacral region, stage 2 Code(s): L89.90 - PRESSURE ULCER OF UNSPECIFIED SITE, UNSPECIFIED STAGE (8) Diabetes mellitus with hyperglycemia Current Visit: No Status: Acute Qualifiers: Diabetes mellitus type: type 2 Diabetes mellitus longterm insulin use: unspecified intermodal customer service insulin use status Qualified Code(s): E11.65 - Type 2 diabetes mellitus with hyperglycemia Code(s): E11.65 - TYPE 2 DIABETES MELLITUS WITH HYPERGLYCEMIA (9) HTN (hypertension) Current Visit: Yes Status: Chronic Qualifiers: Hypertension type: essential hypertension Qualified Code(s): I10 - Essential (primary) hypertension Code(s): I10 - ESSENTIAL (PRIMARY) HYPERTENSION
--- NOTE | 2019-12-25 17:06 | XRAY ---
Indication: Hypoxemia. Multiple contiguous axial images obtained through the chest using 99 cc Isovue-370 contrast. Comparison: None Heart is enlarged without pericardial effusion. Aorta is normal in course and caliber without aneurysm/dissection. No large central pulmonary embolus. Small left hilar calcified nodes. No pathologic mediastinal/hilar lymphadenopathy. Lungs demonstrates moderate bibasilar subsegmental atelectasis left greater than right. A few incidental bibasilar calcified granulomas. No suspicious pulmonary mass, infiltrate, or effusion. Bony thorax is intact with minimal degenerative changes throughout the spine. CT abdomen/pelvis reportedly one day earlier. Impression: 1. Cardiomegaly, bibasilar subsegmental atelectasis, and evidence for old granulomatous disease. 2. Remaining CT chest with contrast exam is negative.
[2019-12-25 18:04] LABS: A-aADO2 294; ABG HEMOGLOBIN 15.7; ABG POTASSIUM 4.2 (3.5-5.1); ARTERIAL BLD GAS O2 SATURATION 92.1 % (95-100); ARTERIAL BLOOD GAS BASE EXCESS 4.6 (-2.0-2.0); ARTERIAL BLOOD GAS FIO2 60 %; ARTERIAL BLOOD GAS PCO2 56 mmHg (35-45); ARTERIAL BLOOD GAS PO2 64 mmHg (75-100); ARTERIAL BLOOD GAS pH 7.36 (7.35-7.45); CARBOXYHEMOGLOBIN 1.2 % THgb (0.0-6.9); HCO3- 31.6 (22-28); HGB O2 SAT 90.5 g/dF (94-100); Methhemoglobin 0.4 % (1.4-1.5); paO2 pAO1 0.18
[2019-12-25 18:05] LABS: A-aADO2 262; ABG HEMOGLOBIN 15.5; ABG POTASSIUM 4.4 (3.5-5.1); ARTERIAL BLD GAS O2 SATURATION 98.1 % (95-100); ARTERIAL BLOOD GAS FIO2 60 %; ARTERIAL BLOOD GAS PCO2 44 mmHg (35-45); ARTERIAL BLOOD GAS PO2 111 mmHg (75-100); ARTERIAL BLOOD GAS VENT MODE BiPAP; ARTERIAL BLOOD GAS pH 7.44 (7.35-7.45); CARBOXYHEMOGLOBIN 2.2 % THgb (0.0-6.9); HCO3- 29.9 (22-28); HGB O2 SAT 95.3 g/dF (94-100); Methhemoglobin 0.8 % (1.4-1.5)
[2019-12-25 18:05] LABS: ABG SITE RIGHT RADIAL
[2019-12-25 18:07] LABS: ABG SITE RIGHT RADIAL
[2019-12-25] MEDS: Dextrose 5%-NS IV Solution 1000 ML 1,000 ML IV SCH (20:58)
[2019-12-26] MEDS: HUMALOG SQ PRN ×6 (00:13→23:33)
[2019-12-26] MEDS: Dextrose 5%-NS IV Solution 1000 ML 1,000 ML IV SCH ×3 (04:39→23:28)
[2019-12-26 05:23] LABS: A-aADO2 178; ABG POTASSIUM 3.9 (3.5-5.1); ARTERIAL BLD GAS O2 SATURATION 98.1 % (95-100); ARTERIAL BLOOD GAS BASE EXCESS 5.4 (-2.0-2.0); ARTERIAL BLOOD GAS FIO2 50 %; ARTERIAL BLOOD GAS PCO2 42 mmHg (35-45); ARTERIAL BLOOD GAS PO2 126 mmHg (75-100); ARTERIAL BLOOD GAS pH 7.46 (7.35-7.45); CARBOXYHEMOGLOBIN 4.3 % THgb (0.0-6.9); HCO3- 29.9 (22-28); HGB O2 SAT 93.1 g/dF (94-100); Methhemoglobin 0.9 % (1.4-1.5); paO2 pAO1 0.41
[2019-12-26 05:24] LABS: ABG SITE RIGHT RADIAL; ALLEN TEST OK? YES
[2019-12-26 05:57] LABS: Hematocrit 48.4 % (35-47); Hemoglobin 14.7 gm/dl (12.0-16.0); Mean Corpuscular Hemoglobin 27.3 pg (26-32); Mean Corpuscular Hgb Concent. 30.4 g/dl (32-36); Mean Platelet Volume 10.9 fl (7.5-11.0); Platelet Count 172 K/mm3 (150-450); Red Blood Count 5.38 M/mm3 (4.1-5.4); Red Cell Distribution Width 18.5 % (11.5-14.0); White Blood Count 5.2 K/mm3 (4.0-10.5)
[2019-12-26 06:14] LABS: ALBUMIN 3.1 g/dL (3.5-5.0); ALKALINE PHOSPHATASE 53 U/L (38-126); ANION GAP 7.7 MEQ/L (5-15); BLOOD UREA NITROGEN 22 mg/dL (7-17); CHLORIDE 109 mmol/L (98-107); CK-Creatinine Phosphokinase 232 U/L (30-135); Calcium 8.8 mg/dL (8.4-10.2); Carbon Dioxide 29 mmol/L (22-30); Creatinine 1 0.48 mg/dL (0.52-1.04); Glucose 201 mg/dL (74-106); Potassium 3.9 mmol/L (3.5-5.1); SGOT/AST 48 U/L (14-36); SGPT/ALT 39 U/L (0-35); SODIUM 142 mmol/L (137-145); Total Protein 6.3 g/dL (6.3-8.2)
[2019-12-26] MEDS: HUMALOG IV SCH ×3 (07:50→17:04)
[2019-12-26] MEDS: ENOXAPARIN SODIUM SQ SCH (10:28)
[2019-12-26] MEDS: NYSTOP 30 GM CREAM TOP SCH ×2 (10:29→21:38)
[2019-12-26] MEDS: NEURONTIN 300 MG PO SCH ×3 (10:29→21:39)
[2019-12-26] MEDS: Coreg 3.125 MG PO SCH ×2 (10:29→21:39)
[2019-12-26] MEDS: Paxil 20 MG PO SCH (10:29)
[2019-12-26] MEDS: ROCEPHIN 1 Gm-D5w 50 ml Bag** 1 G/50 ML IVPB IV SCH (10:29)
--- NOTE | 2019-12-26 10:51 | XRAY ---
Indication: Found unresponsive. Two-dimensional sonogram and color Doppler imaging of the carotid arteries of the neck performed. Comparison: None Examination of the right carotid circulation demonstrates very minimal soft plaquing at the level of the bulb. Remaining common carotid, internal carotid, and external carotid arteries are widely patent. PSV of the CCA is 95 cm/s. PSV of the ICA is 74 cm/s. ICA/CCA ratio is 0.8. Normal antegrade vertebral artery flow. Examination of the left carotid circulation demonstrates mild eccentric heterogeneous plaquing at the level of the bulb extending into the origin/proximal internal carotid artery. Remaining common carotid and external carotid arteries are widely patent. PSV of the CCA is 93 cm/s. PSV of the ICA is 67 cm/s. ICA/CCA ratio is 0.7. Normal antegrade vertebral artery flow. Impression: Very minimal right and mild left arteriosclerotic plaquing as detailed. Velocity measurements and ratios are negative for hemodynamically significant flow-limiting stenosis.
--- NOTE | 2019-12-26 13:49 | PCM.NOTE ---
Date and Time: 12/26/19 1344 Subjective Assessment: Pt wore bipap all night and slept great (with 0.5L O2). This morning was taken off NC and dropped sat to 74%; with NC came up into the 80s; with 10L oximizer sat is 88%. She is joking today. Little diet coke this morning. ST said she did great with bedside swallow eval, and she can be advanced on her diet. Pt remembers the a/c belle coming, and remembers the EMT talking to her, but nothing in the middle. - Review of Systems Constitutional: No Fever Abdominal/Gastrointestinal: No Vomiting Objective Exam General Appearance: no apparent distress, obese, other (done this morning) Neurologic Exam: alert, cooperative Skin Exam: normal color, warm, dry, No rash Wound Assessment: Skin/Wound Assessment Wound/Incision Assessment Start: 12/24/19 18:54 Text: Status: Active Freq: Q6H Protocol: Document 12/26/19 08:00 TP (Rec: 12/26/19 08:42 TP [id number]) Wound Photo Comment: No wounds at this time. Ears, Nose, Throat Exam: moist mucous membranes Neck Exam: normal inspection Respiratory Exam: lungs clear, diminished breath sounds, No crackles/rales, No rhonchi, No wheezing Cardiovascular Exam: regular rate/rhythm, normal heart sounds, No murmur Gastrointestinal/Abdomen Exam: soft, normal bowel sounds, No tenderness, No distention, No mass, No guarding, No rebound Extremity Exam: other (LLE BKA, chronic), No swelling, No tenderness OBJECTIVE DATA Vital Signs: Vital Signs - 24 hr Temp Pulse Resp BP Pulse Ox 12/26/19 09:12 90 L 12/26/19 07:48 98.5 F 69 20 110/72 90 L 12/26/19 04:00 97.0 F 60 18 136/77 97 12/26/19 00:00 97.0 F 62 20 115/71 98 12/25/19 23:15 99 12/25/19 20:00 96 F 79 22 128/74 98 12/25/19 18:55 96 12/25/19 16:00 98.3 F 65 19 115/62 98 Pain Assessment - Last Documented Pain Intensity 0 Pain Scale Used 0-10 Pain Scale Intake and Output: Intake & Output 12/24/19 12/25/19 12/26/19 12/27/19 11:59 11:59 11:59 11:59 Intake Total 1423 8355 240 Output Total 020 3200 Balance 720 5122 240 Weight 143.8 kg Lab Results: Accuchecks Date 12/26/19 Date 12/26/19 Date 12/26/19 Date 12/26/19 Date 12/25/19 Date 12/25/19 Time 12:00 Time 07:30 Time 04:00 Time 00:00 Time 20:00 Time 16:52 Accucheck Value: 167 Accucheck Value: 275 Accucheck Value: 150 Accucheck Value: 217 Accucheck Value: 204 Lab Results-Last 24 Hours 12/25/19 12/25/19 12/25/19 Range/Units 14:00 17:30 17:30 WBC (4.0-10.5) K/mm3 RBC (4.1-5.4) M/mm3 Hgb (12.0-16.0) gm/dl Hct (35-47) % MCV (78-100) fl MCH (26-32) pg MCHC (32-36) g/dl RDW (11.5-14.0) % Plt Count (150-450) K/mm3 MPV (7.5-11.0) fl D-Dimer 1478 H* (215-500) ng/mL Puncture Site RIGHT RADIAL pCO2 56 H (35-45) mmHg pO2 64 L (75-100) mmHg Base Excess 4.6 H (-2.0-2.0) O2 Saturation 90.5 L (94-100) g/dF ABG pH 7.36 (7.35-7.45) ABG HCO3 31.6 H* (22-28) ABG O2 Sat (Measured) 92.1 L (95-100) % Janes Test n/a A-a Gradient 294 a/A Ratio 0.18 Hemoglobin 15.7 Carboxyhemoglobin 1.2 (0.0-6.9) % THgb Methemoglobin 0.4 L (1.4-1.5) % Potassium 4.2 (3.5-5.1) Temperature 37.0 C POC O2 Flow Rate 60 % Vent Mode Inspiratory BiPAP Expiratory BiPAP Sodium (137-145) mmol/L Chloride (98-107) mmol/L Carbon Dioxide (22-30) mmol/L Anion Gap (5-15) MEQ/L BUN (7-17) mg/dL Creatinine (0.52-1.04) mg/dL Estimated GFR ML/MIN Glucose (74-106) mg/dL Calcium (8.4-10.2) mg/dL Total Bilirubin (0.2-1.3) mg/dL AST (14-36) U/L ALT (0-35) U/L Alkaline Phosphatase (38-126) U/L Ammonia 16 (9-30) umol/L Creatine Kinase (30-135) U/L Serum Total Protein (6.3-8.2) g/dL Albumin (3.5-5.0) g/dL 12/25/19 12/26/19 12/26/19 Range/Units 17:30 05:10 05:10 WBC 5.2 (4.0-10.5) K/mm3 RBC 5.38 (4.1-5.4) M/mm3 Hgb 14.7 (12.0-16.0) gm/dl Hct 48.4 H (35-47) % MCV 90.0 (78-100) fl MCH 27.3 (26-32) pg MCHC 30.4 L (32-36) g/dl RDW 18.5 H (11.5-14.0) % Plt Count 172 (150-450) K/mm3 MPV 10.9 (7.5-11.0) fl D-Dimer (215-500) ng/mL Puncture Site RIGHT RADIAL pCO2 44 (35-45) mmHg pO2 111 H (75-100) mmHg Base Excess 5.0 H (-2.0-2.0) O2 Saturation 95.3 (94-100) g/dF ABG pH 7.44 (7.35-7.45) ABG HCO3 29.9 H* (22-28) ABG O2 Sat (Measured) 98.1 (95-100) % Janes Test n/a A-a Gradient 262 a/A Ratio 0.30 Hemoglobin 15.5 Carboxyhemoglobin 2.2 (0.0-6.9) % THgb Methemoglobin 0.8 L (1.4-1.5) % Potassium 4.4 3.9 (3.5-5.1) Temperature 37.0 C POC O2 Flow Rate 60 % Vent Mode BiPAP Inspiratory BiPAP Expiratory BiPAP Sodium 142 (137-145) mmol/L Chloride 109 H (98-107) mmol/L Carbon Dioxide 29 (22-30) mmol/L Anion Gap 7.7 (5-15) MEQ/L BUN 22 H (7-17) mg/dL Creatinine 0.48 L (0.52-1.04) mg/dL Estimated GFR > 60.0 ML/MIN Glucose 201 H (74-106) mg/dL Calcium 8.8 (8.4-10.2) mg/dL Total Bilirubin 0.70 (0.2-1.3) mg/dL AST 48 H (14-36) U/L ALT 39 H (0-35) U/L Alkaline Phosphatase 53 (38-126) U/L Ammonia (9-30) umol/L Creatine Kinase 232 H (30-135) U/L Serum Total Protein 6.3 (6.3-8.2) g/dL Albumin 3.1 L (3.5-5.0) g/dL 12/26/19 Range/Units 05:16 WBC (4.0-10.5) K/mm3 RBC (4.1-5.4) M/mm3 Hgb (12.0-16.0) gm/dl Hct (35-47) % MCV (78-100) fl MCH (26-32) pg MCHC (32-36) g/dl RDW (11.5-14.0) % Plt Count (150-450) K/mm3 MPV (7.5-11.0) fl D-Dimer (215-500) ng/mL Puncture Site RIGHT RADIAL pCO2 42 (35-45) mmHg pO2 126 H* (75-100) mmHg Base Excess 5.4 H (-2.0-2.0) O2 Saturation 93.1 L (94-100) g/dF ABG pH 7.46 H (7.35-7.45) ABG HCO3 29.9 H* (22-28) ABG O2 Sat (Measured) 98.1 (95-100) % Janes Test YES A-a Gradient 178 a/A Ratio 0.41 Hemoglobin 15.0 Carboxyhemoglobin 4.3 (0.0-6.9) % THgb Methemoglobin 0.9 L (1.4-1.5) % Potassium 3.9 (3.5-5.1) Temperature 37.0 C POC O2 Flow Rate 50 % Vent Mode Inspiratory BiPAP 14 Expiratory BiPAP 8 Sodium (137-145) mmol/L Chloride (98-107) mmol/L Carbon Dioxide (22-30) mmol/L Anion Gap (5-15) MEQ/L BUN (7-17) mg/dL Creatinine (0.52-1.04) mg/dL Estimated GFR ML/MIN Glucose (74-106) mg/dL Calcium (8.4-10.2) mg/dL Total Bilirubin (0.2-1.3) mg/dL AST (14-36) U/L ALT (0-35) U/L Alkaline Phosphatase (38-126) U/L Ammonia (9-30) umol/L Creatine Kinase (30-135) U/L Serum Total Protein (6.3-8.2) g/dL Albumin (3.5-5.0) g/dL Radiology Exams: Radiology Procedures Category Date Time Status ABDOMEN AND PELVIS W CONTRAST [CT] Stat Exams 12/24/19 14:01 Completed CAROTID BILATERAL [US] Routine Exams 12/26/19 10:32 Completed CHEST 1 VIEW (PORTABLE) Stat Exams 12/24/19 14:01 Completed CHEST WITH CONTRAST [CT] Stat Exams 12/25/19 14:33 Completed HEAD WITHOUT CONTRAST [CT] Stat Exams 12/24/19 18:18 Completed Assessment/Plan (1) Hypoxemia Current Visit: Yes Status: Acute Assessment & Plan: was fine overnight on bipap. Ruled out PE yesterday. Likely due to habitus; she is likely chronically hypoxemic as she does not wear her O2 at home like she was prescribed. Code(s): R09.02 - HYPOXEMIA (2) Rhabdomyolysis Current Visit: Yes Status: Acute Qualifiers: Rhabdomyolysis type: traumatic Encounter type: initial encounter Qualified Code(s): T79.6XXA - Traumatic ischemia of muscle, initial encounter Assessment & Plan: CK down to 232 this morning, and renal function is preserved. Code(s): M62.82 - RHABDOMYOLYSIS (3) Urinary tract infection Current Visit: No Status: Acute Qualifiers: Urinary tract infection type: site unspecified Hematuria presence: without hematuria Qualified Code(s): N39.0 - Urinary tract infection, site not specified Assessment & Plan: day #3 Rocephin. Grew Citrobacter freundii, susceptible to rocephin. Code(s): N39.0 - URINARY TRACT INFECTION, SITE NOT SPECIFIED (4) Anxiety and depression Current Visit: Yes Status: Chronic Code(s): F41.9 - ANXIETY DISORDER, UNSPECIFIED; F32.9 - MAJOR DEPRESSIVE DISORDER, SINGLE EPISODE, UNSPECIFIED (5) Below knee amputation Current Visit: Yes Status: Chronic Code(s): S88.119A - COMPLETE TRAUM AMP AT LEV BETW KN & ANKL, UNSP LOW LEG, INIT (6) Pressure ulcer Current Visit: Yes Status: Acute Qualifiers: Pressure injury location: sacral region Pressure injury stage: stage 2 Qualified Code(s): L89.152 - Pressure ulcer of sacral region, stage 2 Code(s): L89.90 - PRESSURE ULCER OF UNSPECIFIED SITE, UNSPECIFIED STAGE (7) Diabetes mellitus with hyperglycemia Current Visit: No Status: Chronic Qualifiers: Diabetes mellitus type: type 2 Diabetes mellitus exterminator insulin use: unspecified half-way insulin use status Qualified Code(s): E11.65 - Type 2 diabetes mellitus with hyperglycemia Assessment & Plan: BS around 200s Code(s): E11.65 - TYPE 2 DIABETES MELLITUS WITH HYPERGLYCEMIA (8) HTN (hypertension) Current Visit: Yes Status: Chronic Qualifiers: Hypertension type: essential hypertension Qualified Code(s): I10 - Essential (primary) hypertension Code(s): I10 - ESSENTIAL (PRIMARY) HYPERTENSION (9) Chronic hypoxemic respiratory failure Current Visit: Yes Status: Chronic Assessment & Plan: will probably need to re-qualify for home oxygen.
[2019-12-27] MEDS: HUMALOG SQ PRN ×6 (04:09→23:27)
[2019-12-27 05:14] LABS: Hematocrit 45.3 % (35-47); Hemoglobin 13.5 gm/dl (12.0-16.0); Mean Cell Volume 90.1 fl (78-100); Mean Corpuscular Hemoglobin 26.8 pg (26-32); Mean Corpuscular Hgb Concent. 29.8 g/dl (32-36); Platelet Count 154 K/mm3 (150-450); Red Blood Count 5.03 M/mm3 (4.1-5.4); Red Cell Distribution Width 17.9 % (11.5-14.0); White Blood Count 4.1 K/mm3 (4.0-10.5)
[2019-12-27 05:30] LABS: ALKALINE PHOSPHATASE 58 U/L (38-126); BLOOD UREA NITROGEN 15 mg/dL (7-17); CHLORIDE 106 mmol/L (98-107); CK-Creatinine Phosphokinase 173 U/L (30-135); Calcium 8.5 mg/dL (8.4-10.2); Carbon Dioxide 27 mmol/L (22-30); Creatinine 1 0.46 mg/dL (0.52-1.04); Glucose 221 mg/dL (74-106); Potassium 3.7 mmol/L (3.5-5.1); SGOT/AST 37 U/L (14-36); SGPT/ALT 34 U/L (0-35); SODIUM 140 mmol/L (137-145)
[2019-12-27] MEDS: Dextrose 5%-NS IV Solution 1000 ML 1,000 ML IV SCH ×3 (06:11→21:46)
[2019-12-27] MEDS: HUMALOG IV SCH ×3 (07:41→16:28)
[2019-12-27] MEDS: ENOXAPARIN SODIUM SQ SCH (10:00)
[2019-12-27] MEDS: ROCEPHIN 1 Gm-D5w 50 ml Bag** 1 G/50 ML IVPB IV SCH (10:00)
[2019-12-27] MEDS: Ecotrin 325 MG PO PRN (10:01)
[2019-12-27] MEDS: NEURONTIN 300 MG PO SCH ×3 (10:01→21:48)
[2019-12-27] MEDS: Paxil 20 MG PO SCH (10:02)
[2019-12-27] MEDS: Coreg 3.125 MG PO SCH ×2 (10:02→21:48)
[2019-12-27] MEDS: NYSTOP 30 GM CREAM TOP SCH ×2 (10:16→21:49)
--- NOTE | 2019-12-27 15:12 | PCM.NOTE ---
Date and Time: 12/27/19 1509 Subjective Assessment: Pt mike po well. C/o leg pain and back pain; her family member is bringing her leg prosthesis then she should have an easier time ambulating. Has had diarrhea after eating for a long time; however sometimes has nl BMs. - Review of Systems Constitutional: No Fever Abdominal/Gastrointestinal: No Vomiting Objective Exam General Appearance: no apparent distress, alert, obese Neurologic Exam: oriented x 3, cooperative Skin Exam: normal color, warm, dry, No rash Wound Assessment: Skin/Wound Assessment Wound/Incision Assessment Start: 12/24/19 18:54 Text: Status: Active Freq: Q6H Protocol: Document 12/27/19 08:00 TP (Rec: 12/27/19 08:15 TP [id number]) Wound Photo Photo Taken No Respiratory Exam: lungs clear, diminished breath sounds, No crackles/rales, No rhonchi, No wheezing Cardiovascular Exam: regular rate/rhythm, normal heart sounds, No murmur Extremity Exam: other (no c/c/e on R; L BKA remotely) OBJECTIVE DATA Vital Signs: Vital Signs - 24 hr Temp Pulse Resp BP BP Pulse Ox 12/27/19 11:57 98.0 F 67 18 121/66 97 12/27/19 07:43 92 L 12/27/19 07:40 97.7 F 64 19 109/58 95 12/27/19 04:00 98.7 F 66 12 131/66 99 12/26/19 23:46 98.0 F 72 12 116/58 92 L 12/26/19 20:10 90 L 12/26/19 19:54 98.4 F 70 20 117/56 90 L 12/26/19 16:00 97.7 F 70 18 116/58 93 L Oxygen-Last 24 hours Oxygen Flowrate (L/min)-RT 2 Pain Assessment - Last Documented Pain Intensity 9 Pain Scale Used 0-10 Pain Scale Intake and Output: Intake & Output 12/25/19 12/26/19 12/27/19 12/28/19 11:59 11:59 11:59 11:59 Intake Total 1428 6879 1680 240 Output Total 700 1750 1650 Balance 728 5129 30 240 Weight 143.8 kg 143.8 kg Lab Results: Accuchecks Date 12/27/19 Date 12/27/19 Date 12/27/19 Date 12/26/19 Date 12/26/19 Date 12/26/19 Time 11:30 Time 07:30 Time 04:00 Time 20:00 Time 20:00 Time 16:00 Accucheck Value: 243 Accucheck Value: 217 Accucheck Value: 216 Accucheck Value: 233 Accucheck Value: 225 Accucheck Value: 197 Lab Results-Last 24 Hours 12/27/19 12/27/19 Range/Units 04:40 04:40 WBC 4.1 (4.0-10.5) K/mm3 RBC 5.03 (4.1-5.4) M/mm3 Hgb 13.5 (12.0-16.0) gm/dl Hct 45.3 (35-47) % MCV 90.1 (78-100) fl MCH 26.8 (26-32) pg MCHC 29.8 L (32-36) g/dl RDW 17.9 H (11.5-14.0) % Plt Count 154 (150-450) K/mm3 MPV 11.0 (7.5-11.0) fl Sodium 140 (137-145) mmol/L Potassium 3.7 (3.5-5.1) mmol/L Chloride 106 (98-107) mmol/L Carbon Dioxide 27 (22-30) mmol/L Anion Gap 11.0 (5-15) MEQ/L BUN 15 (7-17) mg/dL Creatinine 0.46 L (0.52-1.04) mg/dL Estimated GFR > 60.0 ML/MIN Glucose 221 H (74-106) mg/dL Calcium 8.5 (8.4-10.2) mg/dL Total Bilirubin 0.60 (0.2-1.3) mg/dL AST 37 H (14-36) U/L ALT 34 (0-35) U/L Alkaline Phosphatase 58 (38-126) U/L Creatine Kinase 173 H (30-135) U/L Serum Total Protein 6.0 L (6.3-8.2) g/dL Albumin 3.0 L (3.5-5.0) g/dL Radiology Exams: Radiology Procedures Category Date Time Status CAROTID BILATERAL [US] Routine Exams 12/26/19 10:32 Completed CHEST WITH CONTRAST [CT] Stat Exams 12/25/19 14:33 Completed Multi-Disciplinary Progress Notes: Multi-Disciplinary Progress Notes 12/27/19 12:56 Case Management Note by Belkys Delaney SPOKE WITH REP AT [facility], REPORTS THAT REFERRAL FOR THEIR SERVICES MUST COME FROM [facility] ON AGING. REFERRAL TO [place] [id number] ([facility]) ON AGING COMPLETE VIA INTERNET AT THIS TIME, PT IS A RESIDENT OF [facility]. Initialized on 12/27/19 12:56 - END OF NOTE 12/27/19 11:57 Case Management Note by Jane Butcher S/W PATIENT- SHE PLANS TO RETURN HOME AT TIME OF DC. PER PT PATIENT DID WELL WITH HER PROSTESIS THIS AM. SHE REPORTS HER DAUGHTER IS TRYING TO ARRANGE TO MOVE IN WITH HER A EL TEACHER. SHE FEELS CONFIDENT IN HER DAUGHTER BEING ABLE TO CARE FOR HER. WILL CONTINUE TO FOLLOW Initialized on 12/27/19 11:57 - END OF NOTE Assessment/Plan (1) Hypoxemia Current Visit: Yes Status: Acute Assessment & Plan: ON OXYMASK this morning. O2 sats 90-93% LAST NIGHT. Code(s): R09.02 - HYPOXEMIA (2) Rhabdomyolysis Current Visit: Yes Status: Resolved Qualifiers: Rhabdomyolysis type: traumatic Encounter type: initial encounter Qualified Code(s): T79.6XXA - Traumatic ischemia of muscle, initial encounter Code(s): M62.82 - RHABDOMYOLYSIS (3) Urinary tract infection Current Visit: No Status: Acute Qualifiers: Urinary tract infection type: site unspecified Hematuria presence: without hematuria Qualified Code(s): N39.0 - Urinary tract infection, site not specified Assessment & Plan: On day #4 rocephin (Citrobacter). Code(s): N39.0 - URINARY TRACT INFECTION, SITE NOT SPECIFIED (4) Anxiety and depression Current Visit: Yes Status: Chronic Code(s): F41.9 - ANXIETY DISORDER, UNSPECIFIED; F32.9 - MAJOR DEPRESSIVE DISORDER, SINGLE EPISODE, UNSPECIFIED (5) Below knee amputation Current Visit: Yes Status: Chronic Code(s): S88.119A - COMPLETE TRAUM AMP AT LEV BETW KN & ANKL, UNSP LOW LEG, INIT (6) Pressure ulcer Current Visit: Yes Status: Acute Qualifiers: Pressure injury location: sacral region Pressure injury stage: stage 2 Qualified Code(s): L89.152 - Pressure ulcer of sacral region, stage 2 Code(s): L89.90 - PRESSURE ULCER OF UNSPECIFIED SITE, UNSPECIFIED STAGE (7) Diabetes mellitus with hyperglycemia Current Visit: No Status: Chronic Qualifiers: Diabetes mellitus type: type 2 Diabetes mellitus 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
[2019-12-27] MEDS: BENTYL 20 MG PO SCH ×2 (16:29→21:48)
[2019-12-27] MEDS: Glucophage 500 MG PO SCH (16:29)
[2019-12-28] MEDS: Dextrose 5%-NS IV Solution 1000 ML 1,000 ML IV SCH (03:53)
[2019-12-28] MEDS: HUMALOG SQ PRN ×4 (03:54→17:06)
[2019-12-28 05:38] LABS: Hemoglobin 13.2 gm/dl (12.0-16.0); Mean Cell Volume 90.2 fl (78-100); Mean Platelet Volume 11.4 fl (7.5-11.0); Platelet Count 147 K/mm3 (150-450); Red Blood Count 4.88 M/mm3 (4.1-5.4); Red Cell Distribution Width 17.5 % (11.5-14.0); White Blood Count 4.2 K/mm3 (4.0-10.5)
[2019-12-28 07:37] LABS: ALKALINE PHOSPHATASE 51 U/L (38-126); ANION GAP 11.1 MEQ/L (5-15); BLOOD UREA NITROGEN 11 mg/dL (7-17); CHLORIDE 108 mmol/L (98-107); CK-Creatinine Phosphokinase 199 U/L (30-135); Calcium 8.6 mg/dL (8.4-10.2); Carbon Dioxide 26 mmol/L (22-30); Glucose 194 mg/dL (74-106); Potassium 3.7 mmol/L (3.5-5.1); SGOT/AST 40 U/L (14-36); SGPT/ALT 41 U/L (0-35); SODIUM 141 mmol/L (137-145)
[2019-12-28] MEDS: Glucophage 500 MG PO SCH ×2 (08:15→17:05)
[2019-12-28] MEDS: HUMALOG IV SCH ×3 (08:16→17:06)
[2019-12-28] MEDS: Coreg 3.125 MG PO SCH ×2 (09:44→22:05)
[2019-12-28] MEDS: Paxil 20 MG PO SCH (09:44)
[2019-12-28] MEDS: NEURONTIN 300 MG PO SCH ×3 (09:44→22:05)
[2019-12-28] MEDS: BENTYL 20 MG PO SCH ×4 (09:44→22:05)
[2019-12-28] MEDS: ENOXAPARIN SODIUM SQ SCH (09:44)
[2019-12-28] MEDS: ROCEPHIN 1 Gm-D5w 50 ml Bag** 1 G/50 ML IVPB IV SCH (09:45)
[2019-12-28] MEDS: NYSTOP 30 GM CREAM TOP SCH ×2 (09:45→22:05)
--- NOTE | 2019-12-28 18:19 | PCM.NOTE ---
Date and Time: 12/28/191815 Subjective Assessment: Pt does very well on CPAP overnight. Wearing oxymask per RT. Little po. Plans to go home with her daughter when she is discharged. - Review of Systems Constitutional: No Fever Respiratory: Cough Objective Exam General Appearance: no apparent distress, alert, obese Neurologic Exam: oriented x 3, cooperative Skin Exam: normal color, warm, dry, No rash Wound Assessment: Skin/Wound Assessment Wound/Incision Assessment Start: 12/24/19 18:54 Text: Status: Active Freq: Q6H Protocol: Document 12/28/19 14:32 [facility] (Rec: 12/28/19 14:37 [facility] [id number]) Wound Photo Photo Taken No Ears, Nose, Throat Exam: moist mucous membranes Respiratory Exam: diminished breath sounds, prolonged expirations, wheezing (faint, scattered), No crackles/rales, No rhonchi Cardiovascular Exam: regular rate/rhythm, normal heart sounds, No murmur Gastrointestinal/Abdomen Exam: soft, normal bowel sounds OBJECTIVE DATA Vital Signs: Vital Signs - 24 hr Temp Pulse Resp BP BP Pulse Ox 12/28/19 16:00 97.4 F 64 22 114/60 99 12/28/19 12:42 91 L 12/28/19 12:00 97.9 F 63 18 116/63 92 L 12/28/19 08:00 98.2 F 62 19 108/64 95 12/28/19 03:57 98.5 F 60 18 122/66 95 12/28/19 00:00 98.7 F 64 23 119/65 121/66 94 L 12/27/19 20:00 97.9 F 75 24 124/66 121/66 92 L 12/27/19 19:56 90 L Oxygen-Last 24 hours Oxygen Flowrate (L/min)-RT 8 Pain Assessment - Last Documented Pain Intensity 0 Pain Scale Used 0-10 Pain Scale Intake and Output: Intake & Output 12/26/19 12/27/19 12/28/19 12/29/19 11:59 11:59 11:59 11:59 Intake Total 5379 3530 7199 480 Output Total 1750 1650 850 200 Balance 5129 1880 6349 280 Weight 143.8 kg Lab Results: Accuchecks Date 12/28/19 Date 12/28/19 Date 12/27/19 Date 12/27/19 Date 12/27/19 Time 12:24 Time 08:21 Time 03:55 Time 23:30 Time 20:00 Accucheck Value: 224 Accucheck Value: 166 Accucheck Value: 168 Accucheck Value: 171 Accucheck Value: 191 Lab Results-Last 24 Hours 12/28/19 12/28/19 Range/Units 04:37 05:10 WBC 4.2 (4.0-10.5) K/mm3 RBC 4.88 (4.1-5.4) M/mm3 Hgb 13.2 (12.0-16.0) gm/dl Hct 44.0 (35-47) % MCV 90.2 (78-100) fl MCH 27.0 (26-32) pg MCHC 30.0 L (32-36) g/dl RDW 17.5 H (11.5-14.0) % Plt Count 147 L (150-450) K/mm3 MPV 11.4 H (7.5-11.0) fl Sodium 141 (137-145) mmol/L Potassium 3.7 (3.5-5.1) mmol/L Chloride 108 H (98-107) mmol/L Carbon Dioxide 26 (22-30) mmol/L Anion Gap 11.1 (5-15) MEQ/L BUN 11 (7-17) mg/dL Creatinine 0.50 L (0.52-1.04) mg/dL Estimated GFR > 60.0 ML/MIN Glucose 194 H (74-106) mg/dL Calcium 8.6 (8.4-10.2) mg/dL Total Bilirubin 0.50 (0.2-1.3) mg/dL AST 40 H (14-36) U/L ALT 41 H (0-35) U/L Alkaline Phosphatase 51 (38-126) U/L Creatine Kinase 199 H (30-135) U/L Serum Total Protein 6.0 L (6.3-8.2) g/dL Albumin 3.0 L (3.5-5.0) g/dL Multi-Disciplinary Progress Notes: Multi-Disciplinary Progress Notes 12/28/19 13:57 Physical Therapy Note by April Wood PT. REPORTS GENERALLY FEELING BETTER. STILL ON 8 L O2 PER MASK. UP IN CHAIR UPON P.T. ARRIVAL TO ROOM. HAS PROTHSEIS IN PLACE L LE. PT. PERFORMED SIT TO STAND W/ CGA-SBA. AMBULATED ~ 45' W/ BARIATRIC WALKER AND CGA-SBA. O2 SATS 93% ON 8 L. ABLE TO NEGOTIATE TURNS WELL W/ WALKER. WEAKNESS AND GENERAL DECONDITIONING ARE LIMITING FACTORS. FEEL PT. WOUD BENEFIT FROM SNF STAY TO MAXIMIZE FUNCTIONAL FOR REHAB IF PT. AND FAMILY AGREEABLE. APRIL WOOD, PT Initialized on 12/28/19 13:57 - END OF NOTE 12/28/19 13:15 Case Management Note by Jane Butcher PATIENT PLANS TO RETURN HOME WITH HER DAUGHTER TO HELP CARE FOR HER. REFERRAL WAS SENT TO [place] [id number] TO SEE IF ANY MEDICAID PAID FOR ASSISTANCE IS AVAILABLE FOR HER. PATIENT ALSO CONTEMPLATING HOME HEALTHCARE WELL. PATIENT GIVEN PROVIDER LIST TO LOOK AT AND TALK HER DAUGHTER ABOUT. PATIENT WILL NEED REQUALIFIED FOR HOME OXYGEN IF REQUIRING MORE THAN 3L (PREVIOUS HOME SETTINGS) AT TIME OF DC Initialized on 12/28/19 13:15 - END OF NOTE Assessment/Plan (1) Hypoxemia Current Visit: Yes Status: Chronic Assessment & Plan: acute on chronic Code(s): R09.02 - HYPOXEMIA (2) Rhabdomyolysis Current Visit: Yes Status: Resolved Qualifiers: Rhabdomyolysis type: traumatic Encounter type: initial encounter Qualified Code(s): T79.6XXA - Traumatic ischemia of muscle, initial encounter Code(s): M62.82 - RHABDOMYOLYSIS (3) Urinary tract infection Current Visit: No Status: Acute Qualifiers: Urinary tract infection type: site unspecified Hematuria presence: without hematuria Qualified Code(s): N39.0 - Urinary tract infection, site not specified Assessment & Plan: On rocephin day #4 Code(s): N39.0 - URINARY TRACT INFECTION, SITE NOT SPECIFIED (4) Anxiety and depression Current Visit: Yes Status: Chronic Code(s): F41.9 - ANXIETY DISORDER, UNSPE CIFIED; F32.9 - MAJOR DEPRESSIVE DISORDER, SINGLE EPISODE, UNSPECIFIED (5) Below knee amputation Current Visit: Yes Status: Chronic Code(s): S88.119A - COMPLETE TRAUM AMP AT LEV BETW KN & ANKL, UNSP LOW LEG, INIT (6) Pressure ulcer Current Visit: Yes Status: Acute Qualifiers: Pressure injury location: sacral region Pressure injury stage: stage 2 Qualified Code(s): L89.152 - Pressure ulcer of sacral region, stage 2 Code(s): L89.90 - PRESSURE ULCER OF UNSPECIFIED SITE, UNSPECIFIED STAGE (7) Diabetes mellitus with hyperglycemia Current Visit: No Status: Chronic Qualifiers: Diabetes mellitus type: type 2 Diabetes mellitus assisted insulin use: unspecified long term acute care registered nurse insulin use status Qualified Code(s): E11.65 - Type 2 diabetes mellitus with hyperglycemia Code(s): E11.65 - TYPE 2 DIABETES MELLITUS WITH HYPERGLYCEMIA (8) HTN (hypertension) Current Visit: Yes Status: Chronic Qualifiers: Hypertension type: essential hypertension Qualified Code(s): I10 - Essential (primary) hypertension Code(s): I10 - ESSENTIAL (PRIMARY) HYPERTENSION (9) Chronic hypoxemic respiratory failure Current Visit: Yes Status: Chronic
[2019-12-28] MEDS: Ecotrin 325 MG PO PRN (22:05)
[2019-12-29] MEDS: HUMALOG SQ PRN ×4 (00:41→17:08)
[2019-12-29 06:07] LABS: Hematocrit 43.9 % (35-47); Hemoglobin 12.9 gm/dl (12.0-16.0); Mean Cell Volume 90.9 fl (78-100); Mean Corpuscular Hemoglobin 26.7 pg (26-32); Mean Corpuscular Hgb Concent. 29.4 g/dl (32-36); Mean Platelet Volume 11.2 fl (7.5-11.0); Platelet Count 136 K/mm3 (150-450); Red Blood Count 4.83 M/mm3 (4.1-5.4); Red Cell Distribution Width 17.6 % (11.5-14.0); White Blood Count 4.5 K/mm3 (4.0-10.5)
[2019-12-29 07:09] LABS: ALKALINE PHOSPHATASE 57 U/L (38-126); ANION GAP 10.2 MEQ/L (5-15); BLOOD UREA NITROGEN 12 mg/dL (7-17); CHLORIDE 107 mmol/L (98-107); CK-Creatinine Phosphokinase 74 U/L (30-135); Calcium 8.7 mg/dL (8.4-10.2); Carbon Dioxide 27 mmol/L (22-30); Creatinine 1 0.45 mg/dL (0.52-1.04); Glucose 163 mg/dL (74-106); SGOT/AST 35 U/L (14-36); SGPT/ALT 43 U/L (0-35); SODIUM 141 mmol/L (137-145)
[2019-12-29] MEDS: HUMALOG IV SCH ×3 (08:27→17:08)
[2019-12-29] MEDS: Glucophage 500 MG PO SCH ×2 (08:27→17:07)
[2019-12-29] MEDS: Ecotrin 325 MG PO PRN ×2 (08:27→21:09)
[2019-12-29] MEDS: NEURONTIN 300 MG PO SCH ×3 (09:56→21:09)
[2019-12-29] MEDS: Coreg 3.125 MG PO SCH ×2 (09:56→21:10)
[2019-12-29] MEDS: BENTYL 20 MG PO SCH ×4 (09:56→21:10)
[2019-12-29] MEDS: ENOXAPARIN SODIUM SQ SCH (09:56)
[2019-12-29] MEDS: NYSTOP 30 GM CREAM TOP SCH (09:57)
[2019-12-29] MEDS: ROCEPHIN 1 Gm-D5w 50 ml Bag** 1 G/50 ML IVPB IV SCH (09:57)
[2019-12-29] MEDS: Paxil 20 MG PO SCH (09:57)
[2019-12-29] MEDS: DUONEB 0.5-3 MG/3 ml Neb IH SCH ×2 (14:14→20:38)
--- NOTE | 2019-12-29 17:33 | PCM.NOTE ---
Date and Time: 12/29/19 1728 Subjective Assessment: Pt and daughter both think she is getting better but still weak at times and unsteady. Her O2 sats dip into the 80s with any time on decreased O2 or if she's not paying attention (as she will breathe through her mouth, even on NC). At home she was on 3L O2 previously. Currently on NC due to eating, but has been on 7L oxymask. Little po but feeling "blah" currently after eating. - Review of Systems Constitutional: No Fever Respiratory: Short Of Breath Objective Exam General Appearance: no apparent distress, obese Neurologic Exam: oriented x 3, cooperative Skin Exam: normal color, warm, dry, No rash Wound Assessment: Skin/Wound Assessment Wound/Incision Assessment Start: 12/24/19 18:54 Text: Status: Active Freq: Q6H Protocol: Document 12/29/19 14:00 S[facility] (Rec: 12/29/19 15:16 SRI [id number]) Wound Photo Photo Taken No Eye Exam: eyes nml inspection Ears, Nose, Throat Exam: moist mucous membranes Respiratory Exam: normal breath sounds, lungs clear, No crackles/rales, No rhonchi, No wheezing Cardiovascular Exam: regular rate/rhythm, normal heart sounds, No murmur Gastrointestinal/Abdomen Exam: soft, normal bowel sounds, No tenderness Extremity Exam: swelling (trace pretibial edema bilat) OBJECTIVE DATA Vital Signs: Vital Signs - 24 hr Temp Pulse Resp BP Pulse Ox 12/29/19 16:00 97.6 F 62 18 123/72 91 L 12/29/19 14:27 91 L 12/29/19 14:17 62 16 88 L 12/29/19 12:00 97.7 F 67 18 144/74 94 L 12/29/19 07:39 96.3 F 61 18 115/58 95 12/29/19 06:58 90 L 12/29/19 04:00 97.5 F 63 16 108/60 96 12/29/19 00:00 97.8 F 66 18 134/76 92 L 12/28/19 20:00 98.6 F 68 16 114/75 88 L 12/28/19 19:32 92 L Oxygen-Last 24 hours Oxygen Flowrate (L/min)-RT 6 Pain Assessment - Last Documented Pain Intensity 0 Pain Scale Used 0-10 Pain Scale Intake and Output: Intake & Output 12/27/19 12/28/19 12/29/19 12/30/19 11:59 11:59 11:59 11:59 Intake Total 3530 7161 1370 240 Output Total 1650 331 900 Balance 5935 0402 362 240 Weight 143.8 kg Lab Results: Accuchecks Date 12/29/19 Date 12/29/19 Date 12/29/19 Date 12/29/19 Date 12/28/19 Date 12/28/19 Time 16:32 Time 12:00 Time 07:30 Time 04:25 Time 00:25 Time 20:00 Accucheck Value: 164 Accucheck Value: 171 Accucheck Value: 141 Accucheck Value: 170 Accucheck Value: 154 Accucheck Value: 185 Lab Results-Last 24 Hours 12/29/19 12/29/19 Range/Units 05:20 05:20 WBC 4.5 (4.0-10.5) K/mm3 RBC 4.83 (4.1-5.4) M/mm3 Hgb 12.9 (12.0-16.0) gm/dl Hct 43.9 (35-47) % MCV 90.9 (78-100) fl MCH 26.7 (26-32) pg MCHC 29.4 L (32-36) g/dl RDW 17.6 H (11.5-14.0) % Plt Count 136 L (150-450) K/mm3 MPV 11.2 H (7.5-11.0) fl Sodium 141 (137-145) mmol/L Potassium 4.0 (3.5-5.1) mmol/L Chloride 107 (98-107) mmol/L Carbon Dioxide 27 (22-30) mmol/L Anion Gap 10.2 (5-15) MEQ/L BUN 12 (7-17) mg/dL Creatinine 0.45 L (0.52-1.04) mg/dL Estimated GFR > 60.0 ML/MIN Glucose 163 H (74-106) mg/dL Calcium 8.7 (8.4-10.2) mg/dL Total Bilirubin 0.50 (0.2-1.3) mg/dL AST 35 (14-36) U/L ALT 43 H (0-35) U/L Alkaline Phosphatase 57 (38-126) U/L Creatine Kinase 74 (30-135) U/L Serum Total Protein 6.0 L (6.3-8.2) g/dL Albumin 3.0 L (3.5-5.0) g/dL Assessment/Plan (1) Hypoxemia Current Visit: Yes Status: Chronic Assessment & Plan: Continue weaning O2 as tolerated. Was on 3L NC home O2 previously and CPAP at night, although she was noncompliant with both. Code(s): R09.02 - HYPOXEMIA (2) Rhabdomyolysis Current Visit: Yes Status: Resolved Qualifiers: Rhabdomyolysis type: traumatic Encounter type: initial encounter Qualified Code(s): T79.6XXA - Traumatic ischemia of muscle, initial encounter Code(s): M62.82 - RHABDOMYOLYSIS (3) Urinary tract infection Current Visit: No Status: Acute Qualifiers: Urinary tract infection type: site unspecified Hematuria presence: without hematuria Qualified Code(s): N39.0 - Urinary tract infection, site not specified Assessment & Plan: on day #5 rocephin (citrobacter, susceptible to rocephin). Code(s): N39.0 - URINARY TRACT INFECTION, SITE NOT SPECIFIED (4) Anxiety and depression Current Visit: Yes Status: Chronic Code(s): F41.9 - ANXIETY DISORDER, UNSPECIFIED; F32.9 - MAJOR DEPRESSIVE DISORDER, SINGLE EPISODE, UNSPECIFIED (5) Below knee amputation Current Visit: Yes Status: Chronic Assessment & Plan: Moving around great since she has her prosthesis. Code(s): S88.119A - COMPLETE TRAUM AMP AT LEV BETW KN & ANKL, UNSP LOW LEG, INIT (6) Pressure ulcer Current Visit: Yes Status: Acute Qualifiers: Pressure injury location: sacral region Pressure injury stage: stage 2 Qualified Code(s): L89.152 - Pressure ulcer of sacral region, stage 2 Code(s): L89.90 - PRESSURE ULCER OF UNSPECIFIED SITE, UNSPECIFIED STAGE (7) Diabetes mellitus with hyperglycemia Current Visit: No Status: Chronic Qualifiers: Diabetes mellitus type: type 2 Diabetes mellitus retirement insulin use: unspecified retirement insulin use status Qualified Code(s): E11.65 - Type 2 diabetes mellitus with hyperglycemia Code(s): E11.65 - TYPE 2 DIABETES MELLITUS WITH HYPERGLYCEMIA (8) HTN (hypertension) Current Visit: Yes Status: Chronic Qualifiers: Hypertension type: essential hypertension Qualified Code(s): I10 - Essential (primary) hypertension Code(s): I10 - ESSENTIAL (PRIMARY) HYPERTENSION (9) Chronic hypoxemic respiratory failure Current Visit: Yes Status: Chronic (10) Thrombocytopenia Current Visit: Yes Status: Acute Assessment & Plan: mild; will keep observing.
[2019-12-30 06:26] LABS: Hematocrit 45.4 % (35-47); Hemoglobin 13.3 gm/dl (12.0-16.0); Mean Cell Volume 91.5 fl (78-100); Mean Corpuscular Hemoglobin 26.8 pg (26-32); Mean Corpuscular Hgb Concent. 29.3 g/dl (32-36); Mean Platelet Volume 11.5 fl (7.5-11.0); Platelet Count 151 K/mm3 (150-450); Red Blood Count 4.96 M/mm3 (4.1-5.4); Red Cell Distribution Width 17.6 % (11.5-14.0); White Blood Count 3.9 K/mm3 (4.0-10.5)
[2019-12-30 06:46] LABS: ALBUMIN 3.1 g/dL (3.5-5.0); ALKALINE PHOSPHATASE 67 U/L (38-126); BLOOD UREA NITROGEN 11 mg/dL (7-17); CHLORIDE 106 mmol/L (98-107); CK-Creatinine Phosphokinase 41 U/L (30-135); Calcium 8.9 mg/dL (8.4-10.2); Carbon Dioxide 32 mmol/L (22-30); Creatinine 1 0.55 mg/dL (0.52-1.04); Glucose 138 mg/dL (74-106); Potassium 3.9 mmol/L (3.5-5.1); SGOT/AST 36 U/L (14-36); SGPT/ALT 46 U/L (0-35); SODIUM 143 mmol/L (137-145); Total Protein 6.1 g/dL (6.3-8.2)
[2019-12-30] MEDS: DUONEB 0.5-3 MG/3 ml Neb IH SCH ×4 (06:58→20:30)
[2019-12-30] MEDS: Glucophage 500 MG PO SCH ×2 (08:43→16:53)
[2019-12-30] MEDS: HUMALOG IV SCH ×3 (08:43→17:15)
[2019-12-30] MEDS: ENOXAPARIN SODIUM SQ SCH (08:44)
[2019-12-30] MEDS: BENTYL 20 MG PO SCH ×4 (08:45→22:08)
[2019-12-30] MEDS: Coreg 3.125 MG PO SCH ×2 (08:45→22:08)
[2019-12-30] MEDS: Paxil 20 MG PO SCH (08:45)
[2019-12-30] MEDS: NEURONTIN 300 MG PO SCH ×3 (08:45→22:08)
[2019-12-30] MEDS: ROCEPHIN 1 Gm-D5w 50 ml Bag** 1 G/50 ML IVPB IV SCH (08:46)
[2019-12-30] MEDS: NYSTOP 30 GM CREAM TOP SCH ×3 (08:47→22:13)
[2019-12-30] MEDS: HUMALOG SQ PRN (11:38)
[2019-12-30] MEDS: Ecotrin 325 MG PO PRN ×2 (16:54→22:08)
[2019-12-30] MEDS: NORCO 5/325 MG PO PRN (17:18)
--- NOTE | 2019-12-30 19:57 | PCM.NOTE ---
Date and Time: 12/30/191950 Subjective Assessment: Tolerating po. Getting around fairly well with her prosthesis. Still on 7L oxymask. - Review of Systems Constitutional: No Fever Respiratory: Short Of Breath Objective Exam General Appearance: no apparent distress, alert, obese Neurologic Exam: oriented x 3, cooperative Skin Exam: normal color, warm, dry, No rash Wound Assessment: Skin/Wound Assessment Wound/Incision Assessment Start: 12/24/19 18:54 Text: Status: Active Freq: Q6H Protocol: Document 12/30/19 14:00 S[facility] (Rec: 12/30/19 15:09 SRI [id number]) Wound Photo Photo Taken No Eye Exam: eyes nml inspection Ears, Nose, Throat Exam: moist mucous membranes Neck Exam: normal inspection Respiratory Exam: normal breath sounds, diminished breath sounds (fair to good air exchange), No crackles/rales, No rhonchi, No wheezing Cardiovascular Exam: regular rate/rhythm, normal heart sounds, No murmur Extremity Exam: swelling (1+ RLE edema (LLE BKA as noted)) OBJECTIVE DATA Vital Signs: Vital Signs - 24 hr Temp Pulse Resp BP Pulse Ox 12/30/19 16:00 96.6 F 65 16 107/57 96 12/30/19 15:07 64 24 92 L 12/30/19 11:32 98.1 F 73 16 128/70 93 L 12/30/19 11:26 91 L 12/30/19 11:15 84 L 12/30/19 10:59 63 18 92 L 12/30/19 07:13 97.2 F 61 22 125/73 94 L 12/30/19 07:03 62 22 92 L 12/30/19 04:00 98.5 F 68 20 122/76 96 12/30/19 00:00 98.2 F 65 20 128/82 94 L 12/29/19 20:45 65 20 94 L 12/29/19 20:00 97.6 F 65 20 123/72 94 L Pain Assessment - Last Documented Pain Intensity 2 Pain Scale Used 0-10 Pain Scale Intake and Output: Intake & Output 12/28/19 12/29/19 12/30/19 12/31/19 11:59 11:59 11:59 11:59 Intake Total 7199 1370 800 600 Output Total 850 900 Balance 6349 470 800 600 Lab Results: Accuchecks Date 12/30/19 Date 12/30/19 Date 12/30/19 Date 12/30/19 Date 12/29/19 Time 11:30 Time 07:30 Time 04:00 Time 00:00 Time 20:00 Accucheck Value: 183 Accucheck Value: 136 Accucheck Value: 129 Accucheck Value: 131 Accucheck Value: 145 Lab Results-Last 24 Hours 12/30/19 12/30/19 Range/Units 05:40 05:40 WBC 3.9 L (4.0-10.5) K/mm3 RBC 4.96 (4.1-5.4) M/mm3 Hgb 13.3 (12.0-16.0) gm/dl Hct 45.4 (35-47) % MCV 91.5 (78-100) fl MCH 26.8 (26-32) pg MCHC 29.3 L (32-36) g/dl RDW 17.6 H (11.5-14.0) % Plt Count 151 (150-450) K/mm3 MPV 11.5 H (7.5-11.0) fl Sodium 143 (137-145) mmol/L Potassium 3.9 (3.5-5.1) mmol/L Chloride 106 (98-107) mmol/L Carbon Dioxide 32 H (22-30) mmol/L Anion Gap 9.0 (5-15) MEQ/L BUN 11 (7-17) mg/dL Creatinine 0.55 (0.52-1.04) mg/dL Estimated GFR > 60.0 ML/MIN Glucose 138 H (74-106) mg/dL Calcium 8.9 (8.4-10.2) mg/dL Total Bilirubin 0.50 (0.2-1.3) mg/dL AST 36 (14-36) U/L ALT 46 H (0-35) U/L Alkaline Phosphatase 67 (38-126) U/L Creatine Kinase 41 (30-135) U/L Serum Total Protein 6.1 L (6.3-8.2) g/dL Albumin 3.1 L (3.5-5.0) g/dL Radiology Exams: Radiology Procedures Category Date Time Status SHOULDER Routine Exams 12/30/19 18:15 Taken Assessment/Plan (1) Hypoxemia Current Visit: Yes Status: Chronic Assessment & Plan: Persistent. Pt may need to go home on more O2 than she previously required (was supposed to be on several liters at home, but was noncompliant). Would benefit from oxymask at home if at all possible as she breathes through her mouth most of the time. Code(s): R09.02 - HYPOXEMIA (2) Rhabdomyolysis Current Visit: Yes Status: Resolved Qualifiers: Rhabdomyolysis type: traumatic Encounter type: initial encounter Qualified Code(s): T79.6XXA - Traumatic ischemia of muscle, initial encounter Code(s): M62.82 - RHABDOMYOLYSIS (3) Urinary tract infection Current Visit: No Status: Acute Qualifiers: Urinary tract infection type: site unspecified Hematuria presence: without hematuria Qualified Code(s): N39.0 - Urinary tract infection, site not specified Assessment & Plan: Citrobacter. on rocephin day #6 today, so would d/c after tomorrow's dose. Code(s): N39.0 - URINARY TRACT INFECTION, SITE NOT SPECIFIED (4) Anxiety and depression Current Visit: Yes Status: Chronic Code(s): F41.9 - ANXIETY DISORDER, UNSPECIFIED; F32.9 - MAJOR DEPRESSIVE DISORDER, SINGLE EPISODE, UNSPECIFIED (5) Below knee amputation Current Visit: Yes Status: Chronic Code(s): S88.119A - COMPLETE TRAUM AMP AT [facility] BETW KN & ANKL, UNSP LOW LEG, INIT (6) Pressure ulcer Current Visit: Yes Status: Acute Qualifiers: Pressure injury location: sacral region Pressure injury stage: stage 2 Qualified Code(s): L89.152 - Pressure ulcer of sacral region, stage 2 Code(s): L89.90 - PRESSURE ULCER OF UNSPECIFIED SITE, UNSPECIFIED STAGE (7) Diabetes mellitus with hyperglycemia Current Visit: No Status: Chronic Qualifiers: Diabetes mellitus type: type 2 Diabetes mellitus 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
[2019-12-31] MEDS: DUONEB 0.5-3 MG/3 ml Neb IH SCH ×4 (06:50→19:07)
[2019-12-31] MEDS: Glucophage 500 MG PO SCH ×2 (07:59→17:32)
[2019-12-31] MEDS: HUMALOG IV SCH ×3 (08:00→17:33)
--- NOTE | 2019-12-31 08:49 | XRAY ---
Indication: Chronic left shoulder pain. No known injury. Comparison: None 2 view left shoulder demonstrate mild osteopenia, mild AC degenerative arthropathy, and tiny greater tuberosity bone island. Incidental left lung interstitial alveolar opacities and possible cardiomegaly better evaluated with chest exam. No other bony, articular, or soft tissue abnormalities.
[2019-12-31] MEDS: Paxil 20 MG PO SCH (09:38)
[2019-12-31] MEDS: ENOXAPARIN SODIUM SQ SCH (09:38)
[2019-12-31] MEDS: NEURONTIN 300 MG PO SCH ×3 (09:38→20:45)
[2019-12-31] MEDS: BENTYL 20 MG PO SCH ×4 (09:38→20:45)
[2019-12-31] MEDS: Coreg 3.125 MG PO SCH ×2 (09:38→20:45)
[2019-12-31] MEDS: ROCEPHIN 1 Gm-D5w 50 ml Bag** 1 G/50 ML IVPB IV SCH (09:39)
[2019-12-31] MEDS: NYSTOP 30 GM CREAM TOP SCH ×2 (11:36→20:44)
[2019-12-31] MEDS: Ecotrin 325 MG PO PRN (20:45)
[2020-01-01] MEDS: DUONEB 0.5-3 MG/3 ml Neb IH SCH ×4 (05:22→19:02)
[2020-01-01 06:39] LABS: Hematocrit 43.7 % (35-47); Mean Corpuscular Hemoglobin 27.1 pg (26-32); Mean Corpuscular Hgb Concent. 29.7 g/dl (32-36); Mean Platelet Volume 11.5 fl (7.5-11.0); Platelet Count 171 K/mm3 (150-450); Red Cell Distribution Width 17.6 % (11.5-14.0); White Blood Count 3.7 K/mm3 (4.0-10.5)
[2020-01-01 06:56] LABS: ALBUMIN 3.3 g/dL (3.5-5.0); ALKALINE PHOSPHATASE 55 U/L (38-126); ANION GAP 8.1 MEQ/L (5-15); BLOOD UREA NITROGEN 12 mg/dL (7-17); CHLORIDE 106 mmol/L (98-107); CK-Creatinine Phosphokinase 27 U/L (30-135); Calcium 9.1 mg/dL (8.4-10.2); Carbon Dioxide 31 mmol/L (22-30); Creatinine 1 0.49 mg/dL (0.52-1.04); Glucose 128 mg/dL (74-106); Potassium 3.9 mmol/L (3.5-5.1); SGOT/AST 29 U/L (14-36); SGPT/ALT 39 U/L (0-35); SODIUM 141 mmol/L (137-145); Total Protein 6.4 g/dL (6.3-8.2)
[2020-01-01] MEDS: Glucophage 500 MG PO SCH ×2 (08:11→17:33)
[2020-01-01] MEDS: HUMALOG IV SCH ×3 (08:12→17:34)
[2020-01-01] MEDS: Coreg 3.125 MG PO SCH ×2 (09:44→21:42)
[2020-01-01] MEDS: Paxil 20 MG PO SCH (09:44)
[2020-01-01] MEDS: BENTYL 20 MG PO SCH ×4 (09:44→21:42)
[2020-01-01] MEDS: ENOXAPARIN SODIUM SQ SCH (09:45)
[2020-01-01] MEDS: ROCEPHIN 1 Gm-D5w 50 ml Bag** 1 G/50 ML IVPB IV SCH (09:45)
[2020-01-01] MEDS: NEURONTIN 300 MG PO SCH ×3 (11:16→21:42)
[2020-01-01] MEDS: NYSTOP 30 GM CREAM TOP SCH ×2 (11:17→21:43)
[2020-01-01 14:56] LABS: BAND 1 % (0.0-2.0); Lymphocytes 18 % (24-44); Monocyte 4 % (0.0-12.0); Neutrophils 77 % (36.0-66.0); Total Cells Counted 100
[2020-01-01 14:57] LABS: Platelet Estimate NORMAL (NORMAL)
--- NOTE | 2020-01-01 16:29 | PCM.DS ---
Discharge Summary Date of Admission: 12/24/19 18:20 Admitting Physician: TATA POOLE Primary Care Provider: NO FAMILY DOCTOR Allergies Allergies No Known Drug Allergies Allergy (Verified 12/25/19 15:09) Hospital Summary - Vitals & Intake/Output Vital Signs: Vital Signs Temperature 98.0 F 01/01/20 12:00 Pulse Rate 64 01/01/20 14:52 Respiratory Rate 22 01/01/20 14:52 Blood Pressure 118/66 01/01/20 07:31 O2 Sat by Pulse Oximetry 87 L 01/01/20 14:52 Intake & Output: Intake & Output 12/30/19 12/31/19 01/01/20 01/02/20 11:59 11:59 11:59 11:59 Intake Total 800 1240 1080 360 Balance 800 1240 1080 360 - Lab Result Diagrams: 01/01/20 06:30 01/01/20 06:00 Lab Results-Last 24 Hrs: Accuchecks Date 01/01/20 Date 01/01/20 Date 01/01/20 Date 01/01/20 Date 12/31/19 Time 12:00 Time 08:00 Time 04:00 Time 00:00 Time 20:00 Accucheck Value: 164 Accucheck Value: 126 Accucheck Value: 122 Accucheck Value: 117 Accucheck Value: 147 Lab Results-Last 24 Hours 01/01/20 01/01/20 Range/Units 06:00 06:30 WBC 3.7 L (4.0-10.5) K/mm3 RBC 4.80 (4.1-5.4) M/mm3 Hgb 13.0 (12.0-16.0) gm/dl Hct 43.7 (35-47) % MCV 91.0 (78-100) fl MCH 27.1 (26-32) pg MCHC 29.7 L (32-36) g/dl RDW 17.6 H (11.5-14.0) % Plt Count 171 (150-450) K/mm3 MPV 11.5 H (7.5-11.0) fl Segmented Neutrophils 77 H (36.0-66.0) % Band Neutrophils 1 (0.0-2.0) % Lymphocytes (Manual) 18 L (24-44) % Monocytes (Manual) 4 (0.0-12.0) % Platelet Estimate NORMAL (NORMAL) RBC Morphology NORMAL Sodium 141 (137-145) mmol/L Potassium 3.9 (3.5-5.1) mmol/L Chloride 106 (98-107) mmol/L Carbon Dioxide 31 H (22-30) mmol/L Anion Gap 8.1 (5-15) MEQ/L BUN 12 (7-17) mg/dL Creatinine 0.49 L (0.52-1.04) mg/dL Estimated GFR > 60.0 ML/MIN Glucose 128 H (74-106) mg/dL Calcium 9.1 (8.4-10.2) mg/dL Total Bilirubin 0.60 (0.2-1.3) mg/dL AST 29 (14-36) U/L ALT 39 H (0-35) U/L Alkaline Phosphatase 55 (38-126) U/L Creatine Kinase 27 L (30-135) U/L Serum Total Protein 6.4 (6.3-8.2) g/dL Albumin 3.3 L (3.5-5.0) g/dL Micro Results-Entire Visit: Microbiology 12/24/19 14:40 Blood Culture Gram Stain - Final Blood Not Reportable Blood Culture - Final NO GROWTH 12/24/19 14:25 Blood Culture Gram Stain - Final Blood Not Reportable Blood Culture - Final NO GROWTH 12/24/19 Unknown Urine Culture - Final Catherized Citrobacter Freundii Accuchecks Date 01/01/20 Date 01/01/20 Date 01/01/20 Date 01/01/20 Date 12/31/19 Time 12:00 Time 08:00 Time 04:00 Time 00:00 Time 20:00 Accucheck Value: 164 Accucheck Value: 126 Accucheck Value: 122 Accucheck Value: 117 Accucheck Value: 147 - Radiology Exams Ordered Rad Exams-Entire Visit: Radiology Procedures Category Date Time Status SHOULDER Routine Exams 12/30/19 18:15 Completed - Procedures and Test Procedures and Tests throughout Hospitalization: Therapy Orders & Screens 12/24/19 19:14 Oxygen Nasal Cannula 2 lpm Comment: Diagnosis: rhabdomylosis 12/25/19 09:57 ST Eval & Treat ( Order) .as ordered Comment: Physician Instructions: Reason For Exam: Evaluate: Yes Treat: Yes Reason for Eval: ?CVA - swallow study prior to giving po Diagnosis: rhabdomylosis 12/25/19 14:30 BiPap/CPAP ROUTINE Comment: Diagnosis: rhabdomylosis 12/26/19 09:30 PT Eval & Treat (MD Order) ROUTINE Reason for Eval:: WEAKNESS Diagnosis: rhabdomylosis 12/27/19 07:39 PT Eval & Treat (MD Order) ROUTINE Reason for Eval:: found down Diagnosis: rhabdomylosis 12/29/19 14:17 Respiratory Therapy Assessment DAILY Comment: Diagnosis: rhabdomylosis 12/29/19 14:20 Peak Expiratory Flow Rate ONCE Comment: Reason For Exam: Diagnosis: rhabdomylosis 12/30/19 19:51 PT Eval & Treat (MD Order) ROUTINE Reason for Eval:: deconditioning Diagnosis: rhabdomylosis Discharge Exam Wound Assessment: Skin/Wound Assessment Wound/Incision Assessment Start: 12/24/19 18: 54 Text: Status: Active Freq: Q6H Protocol: Document 01/01/20 08:00 NORA (Rec: 01/01/20 13:46 NORA [id number]) Wound/Incision Assessment BUTTOCK FOLD Wound Assessment Shift Assessment Wound Type deep tissue injury Comment barrier cream applied - Discharge Disposition: Skilled Care @ [facility] Condition: Stable Prescriptions: Continue Pravastatin Sodium 20 mg PO DAILY Paroxetine HCl 20 mg PO DAILY Lisinopril 20 mg [Zestril 20 MG] 20 mg PO DAILY Gabapentin 600 mg PO TID Fenofibrate,Micronized 145 mg* [Tricor 145 MG] 145 mg PO HS Metformin HCl 1000 mg [Glucophage 1000 MG] 1,000 mg PO BID Insulin Aspart [NovoLOG Insulin] 60 unit SQ UD Insulin Degludec [Tresiba Flextouch U-100] 160 unit SQ UD Carvedilol [Coreg] 6.25 mg PO DAILY Oxybutynin Chloride [Oxybutynin Chloride ER] 10 mg PO Exenatide Microspheres [Bydureon Bcise] 2 mg SQ Amoxicillin 500 mg PO TID #30 tablet PARoxetine HCL [Paroxetine HCl] 20 mg PO DAILY Insulin Degludec [Tresiba Flextouch U-200] 145 units SQ DAILY Exenatide Microspheres [Bydureon Bcise] 2 mg SQ WEEKLY carvediloL [Carvedilol] 6.25 mg PO BID Gabapentin 600 mg PO TID Insulin Aspart Prot/Insuln Asp [Novolog Mix 70-30 Flexpen] 1 unit SQ UD Discontinued Ketorolac Tromethamine [Toradol] 10 mg PO Q6H PRN PRN #20 tablet PRN Reason: Pain Metformin HCl 1,000 mg PO BID Pravastatin Sodium 20 mg PO DAILY Additional Instructions: [facility] ORDERS: PT/OT EVAL AND TREAT REGULAR DIET HAS SLEEP APNEA, WEARS BIPAP AT NOC: SETTINGS: INSPIRATORY PRESSURE 14 EXPIRATORY PRESSURE 8 FIO2 60 OXYGEN TO KEEP SPO2 > 92%, CURRENTLY ON 10L OXYMIZER SEE ATTACHED FOR ALL MEDS Please encourage patient to wear her bipap as she can be resistant with wanting to keep it on.
[2020-01-01] MEDS ORDERED: Klor Con 10 MEQ PO ONE ×2 (17:55→17:57)
[2020-01-01] MEDS ORDERED: Lasix 20 MG/2 ML IV ONE (18:00)
[2020-01-01] MEDS: NORCO 5/325 MG PO PRN (21:42)
[2020-01-02] MEDS: DUONEB 0.5-3 MG/3 ml Neb IH SCH ×2 (06:14→10:51)
[2020-01-02] MEDS: Glucophage 500 MG PO SCH (08:31)
[2020-01-02] MEDS: HUMALOG IV SCH ×2 (08:32→12:39)
[2020-01-02] MEDS: ENOXAPARIN SODIUM SQ SCH (09:23)
[2020-01-02] MEDS: BENTYL 20 MG PO SCH (09:24)
[2020-01-02] MEDS: NEURONTIN 300 MG PO SCH (09:24)
[2020-01-02] MEDS: Coreg 3.125 MG PO SCH (09:24)
[2020-01-02] MEDS: Paxil 20 MG PO SCH (09:24)
[2020-01-02] MEDS: ROCEPHIN 1 Gm-D5w 50 ml Bag** 1 G/50 ML IVPB IV SCH (09:25)
[2020-01-02] MEDS: NYSTOP 30 GM CREAM TOP SCH (09:25)
[2020-01-02 11:06] VITALS: PULSE 61
[2020-01-02 11:39] LABS: A-aADO2 329; ABG HEMOGLOBIN 13.2; ABG POTASSIUM 3.8 (3.5-5.1); ABG SITE RIGHT RADIAL; ALLEN TEST OK? YES; ARTERIAL BLD GAS O2 SATURATION 98.6 % (95-100); ARTERIAL BLOOD GAS BASE EXCESS 12.5 (-2.0-2.0); ARTERIAL BLOOD GAS FIO2 70 %; ARTERIAL BLOOD GAS PCO2 56 mmHg (35-45); ARTERIAL BLOOD GAS PO2 100 mmHg (75-100); ARTERIAL BLOOD GAS VENT MODE BiPAP; ARTERIAL BLOOD GAS pH 7.45 (7.35-7.45); CARBOXYHEMOGLOBIN 1.1 % THgb (0.0-6.9); HCO3- 38.9 (22-28); HGB O2 SAT 96.9 g/dF (94-100); Methhemoglobin 0.6 % (1.4-1.5); paO2 pAO1 0.23
--- NOTE | 2020-01-02 11:52 | XRAY ---
Indication: Short of breath. Increased oxygen demand. Comparison: December 24, 2019. Portable chest again demonstrates cardiomegaly with new central vascular congestion, new left base infiltrate/atelectasis/effusion, and new tiny right effusion concerning for cardiac decompensation/fluid overload. Superimposed pneumonia not completely excluded. Stable incidental calcified granulomas.
[2020-01-02] MEDS ORDERED: BUMEX 1 MG IV STA (12:06)
[2020-01-02] MEDS ORDERED: Klor Con 10 MEQ PO ONE (12:07)
--- NOTE | 2020-01-02 13:12 | PCM.DS ---
Discharge Summary Date of Admission: 12/24/19 18:20 Date of Discharge: 01/02/2020 Admitting Physician: TATA POOLE Primary Care Provider: NO FAMILY DOCTOR Allergies Allergies No Known Drug Allergies Allergy (Verified 12/25/19 15:09) Hospital Summary - Hospital Course Hospital Course: 59 yr old female patient presented to ER by ambulance. EMS stated that the patient was found down in apartment for unknown amount of time. Pt was confused and disoriented. Covered in fecal matter and urine. Redness noted to groin and pressure areas from incontinence and being down on ground. Pt was found by a belle coming into apartment to work on her AC unit. Patient was admitted to inpatient for hypoxemia, AMS, rhabdo and UTI. Patient was started on antibiotics for UTI. Patient was having a difficult time maintaining her oxygen saturations. She required bipap, cpap and oxymizer. She had improvement with her respiratory status but was still requiring oxygen support. Patient also was being managed for rhabdo and her labs showed improvement and trending down to wnl. Patient was treated for UTI and will not need to be discharged on antiobiotics for that. Yonny le's mental status improved over the course of her admission. Due to patient's weakness and inability to completely care for herself, both patient and patient's daughter agree to placement to have patient work with PT. Patient would have required oxygen at discharge as she was still desating without. Plan was for patient to DC to [place] on the . However patient again had increased oxygen needs and was requiring continuos bipap. She was having increased work of breathing and it was felt that patient would do better at tertiary facility that had a clinical technologist. Patient wanted to go to [facility]. I contacted. Dr Cadena to discuss patient's transfer and he agreed to accept patient. - Vitals & Intake/Output Vital Signs: Vital Signs Temperature 98.7 F 01/02/20 08:00 Pulse Rate 61 01/02/20 10:59 Respiratory Rate 18 01/02/20 10:59 Blood Pressure 111/61 01/02/20 08:00 O2 Sat by Pulse Oximetry 96 01/02/20 10:59 Intake & Output: Intake & Output 12/31/19 01/01/20 01/02/20 01/03/20 11:59 11:59 11:59 11:59 Intake Total 1240 1080 1320 Balance 1240 3450 1320 - Lab Result Diagrams: 01/01/20 06:30 01/01/20 06:00 Lab Results-Last 24 Hrs: Accuchecks Date 01/02/20 Date 01/02/20 Date 01/02/20 Date 01/02/20 Date 01/01/20 Date 01/01/20 Time 12:00 Time 08:00 Time 04:00 Time 00:00 Time 21:00 Time 17:42 Accucheck Value: 136 Accucheck Value: 131 Accucheck Value: 151 Accucheck Value: 167 Lab Results-Last 24 Hours 01/01/20 01/02/20 Range/Units 06:30 11:34 Segmented Neutrophils 77 H (36.0-66.0) % Band Neutrophils 1 (0.0-2.0) % Lymphocytes (Manual) 18 L (24-44) % Monocytes (Manual) 4 (0.0-12.0) % Platelet Estimate NORMAL (NORMAL) RBC Morphology NORMAL Puncture Site RIGHT RADIAL pCO2 56 H (35-45) mmHg pO2 100 (75-100) mmHg Base Excess 12.5 H (-2.0-2.0) O2 Saturation 96.9 (94-100) g/dF ABG pH 7.45 (7.35-7.45) ABG HCO3 38.9 H* (22-28) ABG O2 Sat (Measured) 98.6 (95-100) % Janes Test YES A-a Gradient 329 a/A Ratio 0.23 Hemoglobin 13.2 Carboxyhemoglobin 1.1 (0.0-6.9) % THgb Methemoglobin 0.6 L (1.4-1.5) % Potassium 3.8 (3.5-5.1) Temperature 37.0 C POC O2 Flow Rate 70 % Vent Mode BiPAP Inspiratory BiPAP 14 Expiratory BiPAP 8 Micro Results-Entire Visit: Microbiology 12/24/19 14:40 Blood Culture Gram Stain - Final Blood Not Reportable Blood Culture - Final NO GROWTH 12/24/19 14:25 Blood Culture Gram Stain - Final Blood Not Reportable Blood Culture - Final NO GROWTH 12/24/19 Unknown Urine Culture - Final Catherized Citrobacter Freundii Accuchecks Date 01/02/20 Date 01/02/20 Date 01/02/20 Date 01/02/20 Date 01/01/20 Date 01/01/20 Time 12:00 Time 08:00 Time 04:00 Time 00:00 Time 21:00 Time 17:42 Accucheck Value: 136 Accucheck Value: 131 Accucheck Value: 151 Accucheck Value: 167 - Radiology Exams Ordered Rad Exams-Entire Visit: Radiology Procedures Category Date Time Status CHEST 1 VIEW (PORTABLE) Stat Exams 01/02/20 11:17 Completed ECHO W/2D AND DOPPLER [US] Routine Exams 01/02/20 Ordered - Procedures and Test Procedures and Tests throughout Hospitalization: Therapy Orders & Screens 12/24/19 19:14 Oxygen Nasal Cannula 2 lpm Comment: Diagnosis: rhabdomylosis 12/25/19 09:57 ST Eval & Treat (MD Order) .as ordered Comment: Physician Instructions: Reason For Exam: Evaluate: Yes Treat: Yes Reason for Eval: ?CVA - swallow study prior to giving po Diagnosis: rhabdomylosis 12/25/19 14:30 BiPap/CPAP ROUTINE Comment: Diagnosis: rhabdomylosis 12/26/19 09:30 PT Eval & Treat (MD Order) ROUTINE Reason for Eval:: WEAKNESS Diagnosis: rhabdomylosis 12/27/19 07:39 PT Eval & Treat (MD Order) ROUTINE Reason for Eval:: found down Diagnosis: rhabdomylosis 12/29/19 14:17 Respiratory Therapy Assessment DAILY Comment: Diagnosis: rhabdomylosis 12/29/19 14:20 Peak Expiratory Flow Rate ONCE Comment: Reason For Exam: Diagnosis: rhabdomylosis 12/30/19 19:51 PT Eval & Treat (MD Order) ROUTINE Reason for Eval:: deconditioning Diagnosis: rhabdomylosis Discharge Exam General Appearance: moderate distress Neurologic Exam: alert, oriented x 3, cooperative, depressed mood/affect, No con fusion, No agitation Eye Exam: eyes nml inspection Ears, Nose, Throat Exam: moist mucous membranes Neck Exam: No JVD Respiratory Exam: respiratory distress, diminished breath sounds, No crackles/rales, No wheezing Cardiovascular Exam: regular rate/rhythm, normal heart sounds, No murmur, No friction rub, No gallop Gastrointestinal/Abdomen Exam: soft, normal bowel sounds, No tenderness, No distention Pelvic Exam: deferred Rectal Exam: deferred Back Exam: normal inspection Extremity Exam: pedal edema (R leg edema), other (Patient has an above the knee amputation left leg) Skin Exam: normal color, warm, dry, No rash Wound Assessment: Skin/Wound Assessment Wound/Incision Assessment Start: 12/24/19 18:54 Text: Status: Active Freq: Q6H Protocol: Document 01/02/20 08:00 SRI (Rec: 01/02/20 12:27 SRI [id number]) Wound/Incision Assessment BUTTOCK FOLD Wound Assessment Shift Assessment Wound Type deep tissue injury Wound Stage Deep Tissue Injury Drainage Amount None Drainage Odor None/Absent Comment barrier cream applied Wound Photo Photo Taken No Final Diagnosis/Problem List - Final Discharge Diagnosis/Problem (1) Encephalopathies Status: Acute Assessment & Plan: Patient had encephalopathy due to acute hypoxemia resp failure and UTI. These were both treated during hospital admission and patient's mental status improved. Patient's hypoxemia is an acute on chronic exacerbation. She was improving but was still requiring much more than her usual respiratory support. She was supposed to be discharged to [place] however the evening she was supposed to be discharge she started to require the max liters of oxygen on oxymizer and bipap. It was then decided that patient should be transferred to [facility] where there is a pulmnologist. Code(s): G93.40 - ENCEPHALOPATHY, UNSPECIFIED (2) Acute hypoxemic respiratory failure Status: Acute Assessment & Plan: Patient was requiring significant resp support including oxygen, bipap and cpap. She will be transferred to [facility] so she can be evaluated and treated by pulmonology. Code(s): J96.01 - ACUTE RESPIRATORY FAILURE WITH HYPOXIA (3) Obesity hypoventilation syndrome Status: Acute Assessment & Plan: This could be contributing to patient's respiratory failure. Again she is being transferred to [facility] for additional pulmonary care. Patient may be a candidate for pulmonary rehab. Code(s): E66.2 - MORBID (SEVERE) OBESITY WITH ALVEOLAR HYPOVENTILATION (4) Urinary tract infection Status: Acute Assessment & Plan: Patient had a UTI on admission. This likely contributed to her decreased mental status. She was treated with IV antibiotics and her symptoms resolved. Code(s): N39.0 - URINARY TRACT INFECTION, SITE NOT SPECIFIED (5) Chronic hypoxemic respiratory failure Status: Chronic (6) Rhabdomyolysis Status: Resolved Assessment & Plan: Patient presented with rhabdomyolysis. She was given IV fluids in ER. Her repeat CK numbers trended down to wnl. Code(s): M62.82 - RHABDOMYOLYSIS (7) Anxiety and depression Status: Chronic Assessment & Plan: Will continue routine home meds Code(s): F41.9 - ANXIETY DISORDER, UNSPECIFIED; F32.9 - MAJOR DEPRESSIVE DISORDER, SINGLE EPISODE, UNSPECIFIED (8) Diabetes mellitus with hyperglycemia Status: Chronic Assessment & Plan: Will continue routine home meds Code(s): E11.65 - TYPE 2 DIABETES MELLITUS WITH HYPERGLYCEMIA (9) HTN (hypertension) Status: Chronic Assessment & Plan: Will continue routine home meds Code(s): I10 - ESSENTIAL (PRIMARY) HYPERTENSION - Discharge Disposition: DC TO [facility] Condition: Stable Prescriptions: Continue Pravastatin Sodium 20 mg PO DAILY Paroxetine HCl 20 mg PO DAILY Lisinopril 20 mg [Zestril 20 MG] 20 mg PO DAILY Gabapentin 600 mg PO TID Fenofibrate,Micronized 145 mg* [Tricor 145 MG] 145 mg PO HS Metformin HCl 1000 mg [Glucophage 1000 MG] 1,000 mg PO BID Insulin Aspart [NovoLOG Insulin] 60 unit SQ UD Insulin Degludec [Tresiba Flextouch U-100] 160 unit SQ UD Carvedilol [Coreg] 6.25 mg PO DAILY Oxybutynin Chloride [Oxybutynin Chloride ER] 10 mg PO Exenatide Microspheres [Bydureon Bcise] 2 mg SQ Amoxicillin 500 mg PO TID #30 tablet PARoxetine HCL [Paroxetine HCl] 20 mg PO DAILY Insulin Degludec [Tresiba Flextouch U-200] 145 units SQ DAILY Exenatide Microspheres [Bydureon Bcise] 2 mg SQ WEEKLY carvediloL [Carvedilol] 6.25 mg PO BID Gabapentin 600 mg PO TID Insulin Aspart Prot/Insuln Asp [Novolog Mix 70-30 Flexpen] 1 unit SQ UD Discontinued Ketorolac Tromethamine [Toradol] 10 mg PO Q6H PRN PRN #20 tablet PRN Reason: Pain Metformin HCl 1,000 mg PO BID Pravastatin Sodium 20 mg PO DAILY Follow up with: DOCTOR,NO FAMILY [Primary Care Provider] - 1 Week Forms: Ambulance Transport Record, Transfer Record Inter-Agency
[2020-01-02 14:38] VITALS: BP 122/76; O2SAT 93
[2020-01-02] MEDS ORDERED: Lasix 20 MG/2 ML IV ONE (18:00)
--- NOTE | 2020-01-12 18:55 | PCM.NOTE ---
Date and Time: 01/12/201842 Subjective Assessment: 59 yr old female seen this am patient reports she has a VITAL today. She reports that she is peeing all the time. She feels her breathing has improved. She states she doesnt remember what happened that led to her fall at home. She reports it was the belle that found her. She reports that she is supposed to w ear cpap at home. Dr Ruiz is her heart doctor. Dr Garza is his regular doctor. She would like to go to [place] to get stronger - Review of Systems Constitutional: Weakness, No Fever, No Weight Loss Eyes: No Symptoms Ears, Nose, & Throat: No Nose Congestion, No Sinus Drainage Respiratory: Short Of Breath (improved), No Cough, No Wheezing Cardiac: Edema, No Chest Pain Abdominal/Gastrointestinal: No Abdominal Pain, No Nausea, No Vomiting, No Diarrhea, No Constipation Genitourinary Symptoms: Frequency Musculoskeletal: Other (Below knee amp L knee and improving rhabdo) Skin: No Cellulitis, No Pruritis, No Rash Neurological: Headache Psychological: Anxiety, Depression, No Alcohol Abuse, No Drug Abuse Objective Exam General Appearance: mild distress, alert, other (Morbidly obese) Neurologic Exam: alert, oriented x 3, cooperative, depressed mood/affect, No disoriented, No confusion Skin Exam: normal color, warm, dry, No rash Eye Exam: eyes nml inspection Ears, Nose, Throat Exam: moist mucous membranes Neck Exam: normal inspection Respiratory Exam: respiratory distress, diminished breath sounds, No crackles/rales, No rhonchi, No wheezing Cardiovascular Exam: regular rate/rhythm, normal heart sounds, edema (R lower extremity), No murmur, No friction rub, No gallop Gastrointestinal/Abdomen Exam: soft, normal bowel sounds, No tenderness, No distention Extremity Exam: pedal edema, swelling, other (Below knee amputation L knee) Pelvic Exam: deferred Rectal Exam: deferred OBJECTIVE DATA Vital Signs: Pain Assessment - Last Documented Pain Intensity 0 Pain Scale Used 0-10 Pain Scale Assessment/Plan (1) Encephalopathies Status: Acute Assessment & Plan: Improving and related to her UTI and acute hypoxemia resp failure. Code(s): G93.40 - ENCEPHALOPATHY, UNSPECIFIED (2) Acute hypoxemic respiratory failure Status: Acute Assessment & Plan: Patient is still requiring more oxygen then her baseline. Will continue to monitor o2 sats. Patient will be on cpap at night Code(s): J96.01 - ACUTE RESPIRATORY FAILURE WITH HYPOXIA (3) Obesity hypoventilation syndrome Status: Acute Code(s): E66.2 - MORBID (SEVERE) OBESITY WITH ALVEOLAR HYPOVENTILATION (4) Urinary tract infection Status: Acute Qualifiers: Urinary tract infection type: site unspecified Hematuria presence: without hematuria Qualified Code(s): N39.0 - Urinary tract infection, site not specified Assessment & Plan: Patient got IV antibiotics and symptoms have improved. She will complete her course prior to DC Code(s): N39.0 - URINARY TRACT INFECTION, SITE NOT SPECIFIED (5) Chronic hypoxemic respiratory failure Status: Chronic (6) Rhabdomyolysis Status: Resolved Qualifiers: Rhabdomyolysis type: traumatic Encounter type: initial encounter Qualified Code(s): T79.6XXA - Traumatic ischemia of muscle, initial encounter Assessment & Plan: Will get repeat CK to check for resolution. Patient is not complaining of symptoms at this time. 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 Code(s): E11.65 - TYPE 2 DIABETES MELLITUS WITH HYPERGLYCEMIA (9) HTN (hypertension) Status: Chronic Qualifiers: Hypertension type: essential hypertension Qualified Code(s): I10 - Essential (primary) hypertension Assessment & Plan: Will continue with routine home meds. Code(s): I10 - ESSENTIAL (PRIMARY) HYPERTENSION
--- NOTE | 2020-01-12 19:17 | PCM.NOTE ---
Date and Time: 01/12/201910 Subjective Assessment: Patient was seen and examined today. She was accepted to [place] and was agreeable to go. She reports that she still is about the same. She had no new complaints this am. No reports of headache like the day before. She still is short of breath when attempting to ambulate. - Review of Systems Constitutional: Weakness, No Fever, No Chills Eyes: No Symptoms Ears, Nose, & Throat: No Symptoms Respiratory: Short Of Breath, No Cough, No Wheezing Cardiac: Edema, No Chest Pain Abdominal/Gastrointestinal: No Abdominal Pain, No Nausea, No Vomiting, No Diarrhea, No Constipation Genitourinary Symptoms: Frequency Musculoskeletal: Other (L below knee amputation) Skin: No Cellulitis, No Pruritis, No Rash Neurological: No Headache Psychological: Anxiety, Depression, No Alcohol Abuse, No Drug Abuse Objective Exam General Appearance: mild distress Neurologic Exam: alert, oriented x 3, cooperative, depressed mood/affect, No disoriented, No confusion Skin Exam: normal color, warm, dry, No rash Eye Exam: eyes nml inspection, No scleral icterus Ears, Nose, Throat Exam: moist mucous membranes Neck Exam: No JVD Respiratory Exam: diminished breath sounds, No normal breath sounds, No chest tenderness, No lungs clear, No crackles/rales, No wheezing Cardiovascular Exam: regular rate/rhythm, normal heart sounds, No murmur, No friction rub, No gallop Gastrointestinal/Abdomen Exam: soft, normal bowel sounds, No tenderness Extremity Exam: swelling (R lower extremity), other (left below knee amputation) Pelvic Exam: deferred Rectal Exam: deferred OBJECTIVE DATA Vital Signs: Pain Assessment - Last Documented Pain Intensity 0 Pain Scale Used 0-10 Pain Scale Assessment/Plan (1) Encephalopathies Status: Acute Assessment & Plan: Improving mental status. Resolved. Code(s): G93.40 - ENCEPHALOPATHY, UNSPECIFIED (2) Acute hypoxemic respiratory failure Status: Acute Assessment & Plan: Improved patient is still requiring oxygen and cpap. Plan was initially to discharge today however patient started to decompensate later in the early evening. She was unable to be transferred to [place]. Code(s): J96.01 - ACUTE RESPIRATORY FAILURE WITH HYPOXIA (3) Obesity hypoventilation syndrome Status: Acute Code(s): E66.2 - MORBID (SEVERE) OBESITY WITH ALVEOLAR HYPOVENTILATION (4) Urinary tract infection Status: Acute Qualifiers: Urinary tract infection type: site unspecified Hematuria presence: without hematuria Qualified Code(s): N39.0 - Urinary tract infection, site not specified Assessment & Plan: Patient has completed treatment and has no symptoms so likely resolved. Code(s): N39.0 - URINARY TRACT INFECTION, SITE NOT SPECIFIED (5) Chronic hypoxemic respiratory failure Status: Chronic (6) Rhabdomyolysis Status: Resolved Qualifiers: Rhabdomyolysis type: traumatic Encounter type: initial encounter Qualified Code(s): T79.6XXA - Traumatic ischemia of muscle, initial encounter Assessment & Plan: Resolved Code(s): M62.82 - RHABDOMYOLYSIS (7) Anxiety and depression Status: Chronic Assessment & Plan: Continue routine home meds Code(s): F41.9 - ANXIETY DISORDER, UNSPECIFIED; F32.9 - MAJOR DEPRESSIVE DISORDER, SINGLE EPISODE, UNSPECIFIED (8) Diabetes mellitus with hyperglycemia Status: Chronic Qualifiers: Diabetes mellitus type: type 2 Diabetes mellitus terminal press operator insulin use: unspecified terminal press operator insulin use status Qualified Code(s): E11.65 - Type 2 diabetes mellitus with hyperglycemia Code(s): E11.65 - TYPE 2 DIABETES MELLITUS WITH HYPERGLYCEMIA (9) HTN (hypertension) Status: Chronic Qualifiers: Hypertension type: essential hypertension Qualified Code(s): I10 - Essential (primary) hypertension Assessment & Plan: continue to monitor and continue routine home meds Code(s): I10 - ESSENTIAL (PRIMARY) HYPERTENSION
== END 2020-01-02 14:15 | disposition short-term general hospital (02) | DRG 70 ==
LOC: ED 13:42 → MERGE 18:20 → MED SURG 18:20
PROVIDERS: ADMIT Family Medicine; ATTEND Family Medicine
DX: G93.40 Encephalopathy, unspecified (principal); J96.01 Acute respiratory failure with hypoxia; M62.82 Rhabdomyolysis; J96.11 Chronic respiratory failure with hypoxia; N39.0 Urinary tract infection, site not specified; E66.2 Morbid (severe) obesity with alveolar hypoventilation; R41.82 Altered mental status, unspecified; E11.65 Type 2 diabetes mellitus with hyperglycemia; I10 Essential (primary) hypertension; M25.512 Pain in left shoulder; F41.8 Other specified anxiety disorders; D69.6 Thrombocytopenia, unspecified; L89.152 Pressure ulcer of sacral region, stage 2; Z79.899 Other long term (current) drug therapy; Z89.512 Acquired absence of left leg below knee
CPT/HCPCS: 36415; 36600; 70450; 71045; 71260; 73030; 74177; 80048; 80053; 80307; 81001; 82140; 82150; 82375; 82550; 82803; 82805; 82962; 83036; 83605; 83690; 83735; 83880; 84134; 84484; 85025; 85027; 85379; 85610; 87040; 87077; 87086; 87186; 92610; 93880; 94002; 94003; 94150; 94640; 94762; 96360; 96374; 96376; 97161; 97530; 99291; U0003; 96375; 99285; J0696; J1650; J1815; J1817; J1940; J2270; A9270-GY

== ENCOUNTER 2020-01-14 10:32 | Inpatient (IN) | payer MEDICARE ==
[2020-01-14] MEDS ORDERED: Zosyn 3.375 GM Vial 3.375 GM in Sodium Chloride 100ML MINI-BAG PLUS 100 ML IV ONE (10:57)
[2020-01-14] MEDS ORDERED: VANCOMYCIN 2 GRAM/400 ML BAG 2 GM/400 ML PIGGYBACK IV ONE ×2 (10:59→11:07)
--- NOTE | 2020-01-14 11:03 | ERPHSYRPT ---
- History of Present Illness Time Seen by Provider: 01/14/20 10:50 Source: patient, EMS Exam Limitations: no limitations Patient Subjective Stated Complaint: Pt states "My right leg hurts." Triage Nursing Assessment: PT presented alert and oriented X 3, skin pwd. Pt able to speak in clear full sentences. Pt right lower extremety red, swollen, hot to touch Physician History: 59 years old female with history of diabetes mellitus, hypertension, hyperlipidemia, left below-knee amputation, chronic respiratory failure on 3 L oxygen who was recently admitted at [facility] for respiratory failure presented in the ER with chief complaint of right lower extremity swelling and redness which started almost 5 days ago with progressive worsening. Patient reports increasing burning/dull aching pain moderate intensity without any significant aggravating or relieving factors and associated with increased swelling and temperature of right lower extremity. It started just above the ankle and gradually extending proximally. She was also complaining of generalized abdominal pain earlier today with some nausea but no vomiting. She is given Zofran and fentanyl by EMS and currently she is pain-erich e. She denies any increased shortness of breath than baseline. No chest pain or palpitations. Denies any fever or chills. Severity: moderate Associated Symptoms: nausea, abdominal pain, shortness of breath, No chest pain, No fever Allergies/Adverse Reactions: No Known Drug Allergies Allergy (Verified 12/25/19 15:09) Home Medications: Albuterol Common Canister [Ventolin Common Canister] 2 puff IH Q6H 01/14/20 [History] Apixaban [Eliquis] 5 mg PO BID 01/14/20 [History] Apixaban [Eliquis] 10 mg PO BID 01/14/20 [History] Carvedilol 6.25 mg [Coreg 6.25 MG] 6.25 mg PO BID 01/14/20 [History] Cefdinir 300 mg PO BID 01/14/20 [History] Doxycycline Hyclate 100 mg PO BID 01/14/20 [History] Famotidine 20 mg [Pepcid 20 MG] 40 mg PO HS 01/14/20 [History] Furosemide 40 mg [Lasix 40 MG] 40 mg PO BID 01/14/20 [History] Gabapentin 600 mg PO TID 01/14/20 [History] Insulin Aspart [Novolog] 1 unit SQ UD 01/14/20 [History] Insulin Degludec [Tresiba Flextouch U-200] 145 unit SQ DAILY 01/14/20 [History] Metformin HCl 500 mg [Glucophage 500 MG] 1,000 mg PO BIDWM 01/14/20 [History] Paroxetine HCl 20 mg [Paxil 20 MG] 20 mg PO DAILY 01/14/20 [History] Potassium Chloride 10 Meq Tab* [Klor Con 10 MEQ] 20 meq PO BID 01/14/20 [History] Pravastatin Sodium 20 mg PO DAILY 01/14/20 [History] Tiotropium [place] Inhaler [Spiriva 18 Mcg/Cap Inhaler] 1 puff IH DAILY 01/14/20 [History] Hx Tetanus, Diphtheria Vaccination/Date Given: No Hx Influenza Vaccination/Date Given: Yes Hx Pneumococcal Vaccination/Date Given: Yes Immunizations Up to Date: Yes Travel Risk - International Travel Have you traveled outside of the country in past 3 weeks: No - Coronavirus Screening Are you exhibiting any of the following symptoms?: No Close contact with a COVID-19 positive Pt in past 14-21 Days: No - Review of Systems Constitutional: No Symptoms, Fatigue, Weakness Eyes: No Symptoms Ears, Nose, & Throat: No Symptoms Respiratory: Dyspnea Cardiac: No Symptoms Abdominal/Gastrointestinal: Abdominal Pain, Nausea Genitourinary Symptoms: No Symptoms Skin: Rash Neurological: No Symptoms Psychological: No Symptoms Endocrine: No Symptoms Hematologic/Lymphatic: No Symptoms Immunological/Allergic: No Symptoms - Past Medical History Pertinent Past Medical History: Yes Neurological History: No Pertinent History ENT History: No Pertinent History Cardiac History: High Cholesterol, Hypertension Respiratory History: Sleep Apnea Endocrine Medical History: Diabetes Type II, Diabetes Type I Musculoskeletal History: No Pertinent History GI Medical History: No Pertinent History, Hemorrhoids History: No Pertinent History Psycho-Social History: Depression, Anxiety Female Reproductive Disorders: No Pertinent History Other Medical History: Below knee amputation r/t diabetes - Past Surgical History Past Surgical History: Yes Neuro Surgical History: No Pertinent History Cardiac: No Pertinent History Respiratory: No Pertinent History Gastrointestinal: Cholecystectomy Genitourinary: No Pertinent History Musculoskeletal: Amputation, Prosthesis Female Surgical History: Hysterectomy, Tubal Ligation Other Surgical History: below knee amputation left leg / r/t diabetes - Social History Smoking Status: Former smoker How long have you smoked: 30 years Exposure to second hand smoke: Yes Drug Use: none Patient Lives Alone: No - Female History Hx Now: No - Nursing Vital Signs Nursing Vital Signs: Initial Vital Signs Temperature 99.3 F 01/14/20 10:34 Pulse Rate 69 01/14/20 10:34 Respiratory Rate 24 01/14/20 10:34 Blood Pressure 116/69 01/14/20 10:34 O2 Sat by Pulse Oximetry 94 L 01/14/20 10:34 Pain Scale Pain Intensity 4 - Physical Exam General Appearance: no apparent distress Eye Exam: PERRL/EOMI, eyes nml inspection Ears, Nose, Throat Exam: normal ENT inspection, TMs normal, pharynx normal Neck Exam: normal inspection, non-tender, full range of motion Respiratory Exam: wheezing, No chest tenderness Cardiovascular Exam: regular rate/rhythm, normal heart sounds Gastrointestinal/Abdomen Exam: soft, normal bowel sounds, No tenderness Extremity Exam: normal inspection Neurologic Exam: alert, oriented x 3, cooperative Skin Exam: other (Circumferential erythema right lower leg just above the ankle with streaking lower leg. Warm and mildly tender to touch.) SpO2 Interpretation: O2 applied SpO2: 94 O2 Delivery: Nasal Cannula Ordered Tests: Active Orders 24 hr Category Date Time Status Up With Assistance ROUTINE Activity 01/14/20 16:00 Active Accucheck ACHS Care 01/14/20 16:00 Active Accucheck STAT Care 01/14/20 10:57 Completed Code Status Order ROUTINE Care 01/14/20 16:00 Active Fall Protocol ROUTINE Care 01/14/20 16:00 Active IV Care Q6H Care 01/14/20 16:00 Active IV Insertion STAT Care 01/14/20 10:55 Completed NPO (ED) STAT Care 01/14/20 10:[address] in Observation ROUTINE Care 01/14/20 16:00 Active Mirela Springer ROUTINE Care 01/14/20 16:00 Active Weight,Daily 0600 Care 01/14/20 16:00 Active Consistent Carbohydrate Diet 1800 Calorie Diet 01/14/20 Dinner Active OBSTR/ACUTE ABDOMEN SERIES Stat Exams 01/14/20 10:55 Completed VENOUS UNILAT/LIMITED EXTREMIT [US] Stat Exams 01/14/20 10:57 Completed BLOOD CULTURE Stat Lab 01/14/20 11:35 Received CBC W DIFF AM.LAB Lab 01/15/20 04:00 Ordered CBC W DIFF Stat Lab 01/14/20 11:35 Completed CK (IN-HOUSE) [CK-Creatinine Phosphokinase] Stat Lab 01/14/20 11:20 Completed CMP AM.LAB Lab 01/15/20 04:00 Ordered CMP Stat Lab 01/14/20 11:35 Completed CULTURE,URINE Stat Lab 01/14/20 14:30 Received LIPASE Stat Lab 01/14/20 11:35 Completed Lactic Acid Stat Lab 01/14/20 11:33 Completed Manual Differential NC Stat Lab 01/14/20 11:35 Completed UA W/RFX UR CULTURE Stat Lab 01/14/20 14:30 Completed Transfer Order Routine Transfer 01/14/20 Completed Medication Summary Generic Name Dose Route Start Last Admin Trade Name Freq PRN Reason Stop Dose Admin Acetaminophen 650 mg 01/14/20 16:15 Tylenol 325 Mg PO 02/13/20 16:14 Q6H PRN PRN PAIN AND/OR FEVER Hydrocodone Bitart/Acetaminophen 1 tab 01/14/20 16:15 [place] 5/325 Mg PO 01/19/20 16:14 Q4H PRN PRN PAIN Albuterol Sulfate 2 puff 01/14/20 19:00 Ventolin Common Canister IH 02/13/20 18:59 Q6HRT KAYLYN Carvedilol 6.25 mg 01/14/20 22:00 Coreg 6.25 Mg PO 02/13/20 21:59 BID KAYLYN Device 1 01/16/20 09:30 Trough Drug Levels IJ 01/16/20 09:31 1XONLY ONE Enoxaparin Sodium 150 mg 01/14/20 18:00 Enoxaparin Sodium SQ 02/13/20 17:59 Q12H KAYLYN Famotidine 40 mg 01/14/20 22:00 Pepcid 20 Mg PO 02/13/20 21:59 HS KAYLYN Furosemide 40 mg 01/14/20 18:00 Lasix 40 Mg PO 02/13/20 17:59 BID DIURETIC KAYLYN Gabapentin 600 mg 01/14/20 22:00 Neurontin 300 Mg PO 02/13/20 21:59 TID KAYLYN Piperacillin Sod/Tazobactam 100 mls @ 200 mls/hr 01/14/20 18:00 Sod 3.375 gm/ Sodium Chloride IV 02/13/20 17:59 Q6HT KAYLYN Vancomycin HCl 2 gm in 400 mls @ 200 mls/hr 01/14/20 22:00 Vancomycin 2 Gram/400 Ml Bag IV 02/13/20 21:59 Q12HT [facility] Insulin Human Lispro 0 unit 01/14/20 16:00 Humalog SQ 02/13/20 15:59 UD PRN HYPERGLYCEMIA Morphine Sulfate 2 mg 01/14/20 16:00 Morphine Sulfate 2 Mg Inj IV 01/19/20 15:59 Q4H PRN PRN PAIN Non-Formulary Medication 145 unit 01/15/20 10:00 Insulin Degludec [Tresiba Flextouch U-200] SQ 02/14/20 09:59 DAILY [facility] Ondansetron HCl 4 mg 01/14/20 16:00 Zofran 4 Mg/2 Ml Vial IV 02/13/20 15:59 Q6H PRN PRN NAUSEA/VOMITING Paroxetine HCl 20 mg 01/14/20 18:00 Paxil 20 Mg PO 02/13/20 17:59 DAILY [facility] Potassium Chloride 20 meq 01/14/20 22:00 Klor Con 10 Meq PO 02/13/20 21:59 BID [facility] Simvastatin 20 mg 01/14/20 18:00 Zocor 20mg PO 02/13/20 17:59 DAILY [facility] Tiotropium [place] 1 ea 01/15/20 07:00 Spiriva 18 Mcg/Cap Inhaler IH 02/14/20 06:59 0700 [facility] Discontinued Medications Generic Name Dose Route Start Last Admin Trade Name Freq PRN Reason Stop Dose Admin Piperacillin Sod/Tazobactam 100 mls @ 200 mls/hr 01/14/20 10:57 01/14/20 11:06 Sod 3.375 gm/ Sodium Chloride IV 01/14/20 11:26 200 mls/hr STAT ONE Administration Vancomycin HCl 2 gm in 400 mls @ 133 mls/hr 01/14/20 10:59 01/14/20 14:11 Vancomycin 2 Gram/400 Ml Bag IV 01/14/20 13:59 Infused ONCE ONE Infusion Sodium Chloride Confirm 01/14/20 11:05 Sodium Chloride 100ml Mini-Bag Plus Administered 01/14/20 11:06 Dose 100 mls @ ud IV .STK-MED ONE Vancomycin HCl Confirm 01/14/20 11:07 Vancomycin 2 Gram/400 Ml Bag Administered 01/14/20 11:08 Dose 2 gm in 400 mls @ ud IV .STK-MED ONE Piperacillin Sod/Tazobactam Sod Confirm 01/14/20 11:04 Zosyn 3.375 Gm Vial Administered 01/14/20 11:05 Dose 3.375 gm IV .STK-MED ONE Lab/Rad Data: Laboratory Result Diagrams 01/14/20 11:35 01/14/20 11:35 Laboratory Results 01/14/20 01/14/20 01/14/20 Range/Units 14:30 11:35 11:35 WBC 5.2 (4.0-10.5) K/mm3 RBC 4.70 (4.1-5.4) M/mm3 Hgb 12.6 (12.0-16.0) gm/dl Hct 42.0 (35-47) % MCV 89.4 (78-100) fl MCH 26.8 (26-32) pg MCHC 30.0 L (32-36) g/dl RDW 17.7 H (11.5-14.0) % Plt Count 157 (150-450) K/mm3 MPV 11.9 H (7.5-11.0) fl Segmented Neutrophils 68 H (36.0-66.0) % Lymphocytes (Manual) 23 L (24-44) % Monocytes (Manual) 5 (0.0-12.0) % Eosinophils (Manual) 4 H (0.00-3.0) % Toxic Granulation 1+ Platelet Estimate NORMAL (NORMAL) RBC Morphology ABNORMAL Polychromasia RARE Anisocytosis 1+ Sodium 141 (137-145) mmol/L Potassium 3.9 (3.5-5.1) mmol/L Chloride 101 (98-107) mmol/L Carbon Dioxide 34 H (22-30) mmol/L Anion Gap 10.5 (5-15) MEQ/L BUN 15 (7-17) mg/dL Creatinine 0.51 L (0.52-1.04) mg/dL Estimated GFR > 60.0 ML/MIN Glucose 186 H (74-106) mg/dL Lactic Acid (0.4-2.0) Calcium 9.3 (8.4-10.2) mg/dL Total Bilirubin 0.70 (0.2-1.3) mg/dL AST 28 (14-36) U/L ALT 25 (0-35) U/L Alkaline Phosphatase 62 (38-126) U/L Creatine Kinase (30-135) U/L Serum Total Protein 8.0 (6.3-8.2) g/dL Albumin 4.0 (3.5-5.0) g/dL Lipase 81 (23-300) U/L Urine Color YELLOW (YELLOW) Urine Appearance CLEAR (CLEAR) Urine pH 7.0 (5-6) Ur Specific [place] 1.012 (1.005-1.025) Urine Protein NEGATIVE (Negative) Urine Ketones NEGATIVE (NEGATIVE) Urine Blood LARGE (0-5) [place]/ul Urine Nitrite NEGATIVE (NEGATIVE) Urine Bilirubin NEGATIVE (NEGATIVE) Urine Urobilinogen NEGATIVE (0-1) mg/dL Ur Leukocyte Esterase TRACE (NEGATIVE) Urine WBC (Auto) 3-5 (0-5) /HPF Urine RBC (Auto) 6-10 (0-2) /HPF U Epithel Cells (Auto) RARE (FEW) /HPF Urine Bacteria (Auto) NONE (NEGATIVE) /HPF Urine Mucus (Auto) SLIGHT (NEGATIVE) /HPF Urine Culture Reflexed YES (NO) Urine Glucose NEGATIVE (NEGATIVE) mg/dL 01/14/20 01/14/20 Range/Units 11:33 11:20 WBC (4.0-10.5) K/mm3 RBC (4.1-5.4) M/mm3 Hgb (12.0-16.0) gm/dl Hct (35-47) % MCV (78-100) fl MCH (26-32) pg MCHC (32-36) g/dl RDW (11.5-14.0) % Plt Count (150-450) K/mm3 MPV (7.5-11.0) fl Segmented Neutrophils (36.0-66.0) % Lymphocytes (Manual) (24-44) % Monocytes (Manual) (0.0-12.0) % Eosinophils (Manual) (0.00-3.0) % Toxic Granulation Platelet Estimate (NORMAL) RBC Morphology Polychromasia Anisocytosis Sodium (137-145) mmol/L Potassium (3.5-5.1) mmol/L Chloride (98-107) mmol/L Carbon Dioxide (22-30) mmol/L Anion Gap (5-15) MEQ/L BUN (7-17) mg/dL Creatinine (0.52-1.04) mg/dL Estimated GFR ML/MIN Glucose (74-106) mg/dL Lactic Acid 1.1 (0.4-2.0) Calcium (8.4-10.2) mg/dL Total Bilirubin (0.2-1.3) mg/dL AST (14-36) U/L ALT (0-35) U/L Alkaline Phosphatase (38-126) U/L Creatine Kinase 35 (30-135) U/L Serum Total Protein (6.3-8.2) g/dL Albumin (3.5-5.0) g/dL Lipase (23-300) U/L Urine Color (YELLOW) Urine Appearance (CLEAR) Urine pH (5-6) Ur Specific [place] (1.005-1.025) Urine Protein (Negative) Urine Ketones (NEGATIVE) Urine Blood (0-5) Darr[place]/ul Urine Nitrite (NEGATIVE) Urine Bilirubin (NEGATIVE) Urine Urobilinogen (0-1) mg/dL Ur Leukocyte Esterase (NEGATIVE) Urine WBC (Auto) (0-5) /HPF Urine RBC (Auto) (0-2) /HPF U Epithel Cells (Auto) (FEW) /HPF Urine Bacteria (Auto) (NEGATIVE) /HPF Urine Mucus (Auto) (NEGATIVE) /HPF Urine Culture Reflexed (NO) Urine Glucose (NEGATIVE) mg/dL - Progress Progress: unchanged, re-examined Progress Note: 01/14/20 5 years old is evaluated for right lower extremity swelling and redness. I have obtained ultrasound which ruled out DVT. Has normal white count and lactate. Started on broad-spectrum antibiotics as patient was taking antibiotics when it started and is worsening. I believe patient has right lower extremity cellulitis and with her history of amputation on the left she would be continued on IV antibiotics. She has a history of PE and not taking any blood thinner, started on Lovenox after discussion with Dr. Garza. Chest x-ray showed mild congestion but no focal infiltrates. Patient is being admitted to hospital. Discussed with .: Yocasta Will see patient in: hospital (observation) Counseled pt/family regarding: lab results, diagnosis, rad results - Departure Departure Disposition: Observation Clinical Impression: Cellulitis of leg without foot, Chronic hypoxemic respiratory failure Condition: Stable Critical Care Time: No
[2020-01-14] MEDS ORDERED: Zosyn 3.375 GM Vial IV ONE (11:04)
[2020-01-14] MEDS ORDERED: Sodium Chloride 100ML MINI-BAG PLUS 100 ML IV ONE (11:05)
[2020-01-14 11:54] LABS: Hemoglobin 12.6 gm/dl (12.0-16.0); Mean Cell Volume 89.4 fl (78-100); Mean Corpuscular Hemoglobin 26.8 pg (26-32); Mean Platelet Volume 11.9 fl (7.5-11.0); Platelet Count 157 K/mm3 (150-450); Red Cell Distribution Width 17.7 % (11.5-14.0); White Blood Count 5.2 K/mm3 (4.0-10.5)
[2020-01-14 12:01] LABS: ALKALINE PHOSPHATASE 62 U/L (38-126); ANION GAP 10.5 MEQ/L (5-15); BLOOD UREA NITROGEN 15 mg/dL (7-17); CHLORIDE 101 mmol/L (98-107); Calcium 9.3 mg/dL (8.4-10.2); Carbon Dioxide 34 mmol/L (22-30); Creatinine 1 0.51 mg/dL (0.52-1.04); Glucose 186 mg/dL (74-106); LIPASE 81 U/L (23-300); Potassium 3.9 mmol/L (3.5-5.1); SGOT/AST 28 U/L (14-36); SGPT/ALT 25 U/L (0-35); SODIUM 141 mmol/L (137-145)
--- NOTE | 2020-01-14 12:05 | XRAY ---
Exam: Right lower extremity duplex Doppler venous ultrasound examination from 01/14/2020. Comparison: None. Indication: Swelling, cellulitis, rule out DVT. Findings: Examination of the right lower extremity was carried out in the usual manner with multiple robbins scale images, color flow images, and Doppler tracings. Normal transducer compression was seen within the right common femoral vein, proximal greater saphenous vein, proximal, mid, and distal superficial femoral vein, popliteal vein, and the distal posterior tibial veins. Normal color blood flow and Doppler signal augmentation were seen throughout the right lower extremity. Incidental note of a small lymph node is seen within the right groin. I see no evidence of superficial venous thrombosis. Normal color blood flow and Doppler tracings were seen within the profunda femoral vein. Impression: 1. No sonographic or Doppler evidence of deep venous thrombosis is seen within the right lower extremity.
--- NOTE | 2020-01-14 13:52 | XRAY ---
Exam: Acute abdominal series from 01/14/2020. Comparison: AP portable chest radiograph from 01/02/[address] of the abdomen and pelvis with IV contrast from 12/25/2019. Indication: Abdominal pain, shortness of breath. Findings: AP view of the chest, 3 supine films of the abdomen, and 2 left lateral decubitus films of the abdomen were obtained. The patient is large. The transverse heart size is minimally enlarged. Mild tortuosity of the descending thoracic aorta is seen. Mild vascular congestive changes are seen within the right infrahilar projection. Prior airspace disease at the left lung base has improved, although I still see some transversely oriented, mild patchy atelectasis and/or infiltrate at the lateral left lung base. The left hemidiaphragm is no longer obscured. Calcified granulomas are seen at the lateral right lung base. No pneumothorax or pleural fluid is seen. The bowel gas pattern appears nonspecific. There are some scattered air-fluid levels within nondilated bowel which may be due to a mild ileus. There is no free intraperitoneal air. Surgical clips consistent with prior cholecystectomy are noted within the right upper quadrant. Numerous calcified phleboliths are seen within the lower pelvis on each side of midline. There is a round 1.4 cm in diameter opacity within the left lower quadrant which may relate to a bowel lumen contents or pill. Some vascular calcification is seen within the distal abdominal aorta and iliac vessels. Mild degenerative changes are seen throughout the lower thoracolumbar spine. Impression: 1. I again see minimal cardiomegaly with mild vascular congestive changes within the right infrahilar projection. No pleural effusion is seen. 2. Prior airspace disease at the left lung base appears improved, although some transversely oriented patchy atelectasis/infiltrate remains. Correlate clinically. 3. Old healed granulomatous disease at the lateral right lung base. 4. I see no evidence of bowel obstruction. However, there are some scattered air-fluid levels within nondilated bowel which may be due to a mild ileus. No free intraperitoneal air is seen. 5. Status post cholecystectomy.
[2020-01-14 14:41] LABS: Appearance CLEAR (CLEAR); Bilirubin NEGATIVE (NEGATIVE); Blood LARGE Ery/ul (0-5); Epithelial Cells RARE /HPF (FEW); Glucose NEGATIVE (NEGATIVE); Ketones NEGATIVE (NEGATIVE); Leukocyte Esterase TRACE (NEGATIVE); Mucus SLIGHT /HPF (NEGATIVE); Nitrite NEGATIVE (NEGATIVE); Protein,Urine Dip NEGATIVE (Negative); Specific Gravity 1.012 (1.005-1.025); Urobilinogen NEGATIVE mg/dL (0-1)
[2020-01-14 15:19] LABS: ANISOCYTOSIS 1+; Eosinophil 4 % (0.00-3.0); Lymphocytes 23 % (24-44); Monocyte 5 % (0.0-12.0); Neutrophils 68 % (36.0-66.0); Platelet Estimate NORMAL (NORMAL); Total Cells Counted 100; Toxic Granulation 1+
[2020-01-14 15:20] LABS: Polychromasia RARE
[2020-01-14] MEDS ORDERED: MORPHINE SULFATE 2 MG INJ IV PRN (16:00)
[2020-01-14] MEDS ORDERED: VANCOCIN 1 GM VIAL*** 1 GM in Sodium Chloride 0.9% 250 ML 250 ML IV SCH (16:00)
[2020-01-14] MEDS ORDERED: Zofran 4 MG/2 ML VIAL IV PRN (16:00)
[2020-01-14] MEDS ORDERED: TYLENOL 325 MG PO PRN (16:15)
[2020-01-14] MEDS ORDERED: NORCO 5/325 MG PO PRN (16:15)
--- NOTE | 2020-01-14 16:15 | PCM.HP ---
History of Present Illness - Chief Complaint Chief Complaint: right lower extremity cellulitis History of Present Illness: is a 59 year old female who was released from [facility] yesterday, she was treated for pneumonia and PE but has not filled her meds yet today, has weakness in the right leg and redness of the ankle. states her daughter was unable to care for her in the home last night or today so came back and thinks she will need sent for rehab, has pain in right lower leg, no chest pain or shortness of breath. wears oxygen at home. - Review of Systems Constitutional: Weakness, No Fever, No Chills Respiratory: No Cough, No Short Of Breath Cardiac: Edema, No Chest Pain Abdominal/Gastrointestinal: No Abdominal Pain, No Nausea, No Vomiting, No Diarrhea Genitourinary Symptoms: No Dysuria Musculoskeletal: Other (swelling, pain and redness to right lower leg) All Other Systems: Reviewed and Negative Medications & Allergies Home Medications: Home Medication List Fenofibrate,Micronized 145 mg* [Tricor 145 MG] 145 mg PO HS 10/21/13 [History Confirmed 01/14/20] Gabapentin 600 mg PO TID 10/21/13 [History Confirmed 01/14/20] Lisinopril 20 mg [Zestril 20 MG] 20 mg PO DAILY 10/21/13 [History Confirmed 01/14/20] Metformin HCl 1000 mg [Glucophage 1000 MG] 1,000 mg PO BID 10/21/13 [History Confirmed 01/14/20] Paroxetine HCl 20 mg PO DAILY 10/21/13 [History Confirmed 01/14/20] Pravastatin Sodium 20 mg PO DAILY 10/21/13 [History Confirmed 01/14/20] Insulin Aspart [NovoLOG Insulin] 60 unit SQ UD 07/09/16 [History Confirmed 01/14/20] Insulin Degludec [Tresiba Flextouch U-100] 160 unit SQ UD 07/09/16 [History Confirmed 01/14/20] Carvedilol [Coreg] 6.25 mg PO DAILY 03/29/18 [History Confirmed 01/14/20] Exenatide Microspheres [Bydureon Bcise] 2 mg SQ WEEKLY 04/04/18 [History Confirmed 01/14/20] Oxybutynin Chloride [Oxybutynin Chloride ER] 10 mg PO DAILY 04/04/18 [History Confirmed 01/14/20] Exenatide Microspheres [Bydureon Bcise] 2 mg SQ WEEKLY 12/24/19 [History Confirmed 01/14/20] Gabapentin 600 mg PO TID 12/24/19 [History Confirmed 01/14/20] Insulin Aspart Prot/Insuln Asp [Novolog Mix 70-30 Flexpen] 1 unit SQ UD 12/24/19 [History Confirmed 01/14/20] Insulin Degludec [Tresiba Flextouch U-200] 145 units SQ DAILY 12/24/19 [History Confirmed 01/14/20] PARoxetine HCL [Paroxetine HCl] 20 mg PO DAILY 12/24/19 [History Confirmed 01/14/20] carvediloL [Carvedilol] 6.25 mg PO BID 12/24/19 [History Confirmed 01/14/20] Allergies/Adverse Reactions: Allergies Allergy/AdvReac Type Severity Reaction Status Date / Time No Known Drug Allergies Allergy Verified 12/25/19 15:09 - Past Medical History Past Medical History: Yes Neurological History: No Pertinent History ENT History: No Pertinent History Cardiac History: High Cholesterol, Hypertension Respiratory History: Sleep Apnea Endocrine Medical History: Diabetes Type II, Diabetes Type I Musculoskelatal History: No Pertinent History GI Medical History: No Pertinent History, Hemorrhoids History: No Pertinent History Pyscho-Social History: Depression, Anxiety Reproductive Disorders: No Pertinent History Comment: Below knee amputation r/t diabetes - Female History Are you now?: No - Past Surgical History Past Surgical History: Yes Neuro Surgical History: No Pertinent History Cardiac History: No Pertinent History Respiratory Surgery: No Pertinent History GI Surgical History: Cholecystectomy Genitourinary Surgical Hx: No Pertinent History Musculskeletal Surgical Hx: Amputation, Prosthesis Female Surgical History: Hysterectomy, Tubal Ligation Other Surgical History: below knee amputation left leg / r/t diabetes - Social History Smoking Status: Former smoker How long have you smoked: 30 years Exposure to second hand smoke: Yes Alcohol: None Drug Use: none - Physical Exam Vital Signs: Vital Signs - 24 hr Temp Pulse Resp BP Pulse Ox 01/14/20 15:08 64 18 133/76 98 01/14/20 15:01 94 L 01/14/20 14:12 64 20 114/63 96 01/14/20 13:22 65 18 130/69 92 L 01/14/20 12:29 66 18 90 L 01/14/20 10:34 99.3 F 69 24 116/69 94 L General Appearance: no apparent distress, obese Neurologic Exam: alert, oriented x 3, cooperative Respiratory Exam: normal breath sounds Cardiovascular Exam: regular rate/rhythm, normal heart sounds, normal peripheral pulses Gastrointestinal/Abdomen Exam: soft, normal bowel sounds, No tenderness, No mass Extremity Exam: other (BKA left with prosthesis, rle erythema to mid calf with 1+ swelling) Results - Labs Lab/Micro Results: Accuchecks Accucheck Value: 169 Lab Results-Last 24 Hours 01/14/20 01/14/20 01/14/20 Range/Units 11:20 11:33 11:35 WBC 5.2 (4.0-10.5) K/mm3 RBC 4.70 (4.1-5.4) M/mm3 Hgb 12.6 (12.0-16.0) gm/dl Hct 42.0 (35-47) % MCV 89.4 (78-100) fl MCH 26.8 (26-32) pg MCHC 30.0 L (32-36) g/dl RDW 17.7 H (11.5-14.0) % Plt Count 157 (150-450) K/mm3 MPV 11.9 H (7.5-11.0) fl Segmented Neutrophils 68 H (36.0-66.0) % Lymphocytes (Manual) 23 L (24-44) % Monocytes (Manual) 5 (0.0-12.0) % Eosinophils (Manual) 4 H (0.00-3.0) % Toxic Granulation 1+ Platelet Estimate NORMAL (NORMAL) RBC Morphology ABNORMAL Polychromasia RARE Anisocytosis 1+ Sodium (137-145) mmol/L Potassium (3.5-5.1) mmol/L Chloride (98-107) mmol/L Carbon Dioxide (22-30) mmol/L Anion Gap (5-15) MEQ/L BUN (7-17) mg/dL Creatinine (0.52-1.04) mg/dL Estimated GFR ML/MIN Glucose (74-106) mg/dL Lactic Acid 1.1 (0.4-2.0) Calcium (8.4-10.2) mg/dL Total Bilirubin (0.2-1.3) mg/dL AST (14-36) U/L ALT (0-35) U/L Alkaline Phosphatase (38-126) U/L Creatine Kinase 35 (30-135) U/L Serum Total Protein (6.3-8.2) g/dL Albumin (3.5-5.0) g/dL Lipase (23-300) U/L Urine Color (YELLOW) Urine Appearance (CLEAR) Urine pH (5-6) Ur Specific [place] (1.005-1.025) Urine Protein (Negative) Urine Ketones (NEGATIVE) Urine Blood (0-5) Darrin/ul Urine Nitrite (NEGATIVE) Urine Bilirubin (NEGATIVE) Urine Urobilinogen (0-1) mg/dL Ur Leukocyte Esterase (NEGATIVE) Urine WBC (Auto) (0-5) /HPF Urine RBC (Auto) (0-2) /HPF U Epithel Cells (Auto) (FEW) /HPF Urine Bacteria (Auto) (NEGATIVE) /HPF Urine Mucus (Auto) (NEGATIVE) /HPF Urine Culture Reflexed (NO) Urine Glucose (NEGATIVE) mg/dL 01/14/20 01/14/20 Range/Units 11:35 14:30 WBC (4.0-10.5) K/mm3 RBC (4.1-5.4) M/mm3 Hgb (12.0-16.0) gm/dl Hct (35-47) % MCV (78-100) fl MCH (26-32) pg MCHC (32-36) g/dl RDW (11.5-14.0) % Plt Count (150-450) K/mm3 MPV (7.5-11.0) fl Segmented Neutrophils (36.0-66.0) % Lymphocytes (Manual) (24-44) % Monocytes (Manual) (0.0-12.0) % Eosinophils (Manual) (0.00-3.0) % Toxic Granulation Platelet Estimate (NORMAL) RBC Morphology Polychromasia Anisocytosis Sodium 141 (137-145) mmol/L Potassium 3.9 (3.5-5.1) mmol/L Chloride 101 (98-107) mmol/L Carbon Dioxide 34 H (22-30) mmol/L Anion Gap 10.5 (5-15) MEQ/L BUN 15 (7-17) mg/dL Creatinine 0.51 L (0.52-1.04) mg/dL Estimated GFR > 60.0 ML/MIN Glucose 186 H (74-106) mg/dL Lactic Acid (0.4-2.0) Calcium 9.3 (8.4-10.2) mg/dL Total Bilirubin 0.70 (0.2-1.3) mg/dL AST 28 (14-36) U/L ALT 25 (0-35) U/L Alkaline Phosphatase 62 (38-126) U/L Creatine Kinase (30-135) U/L Serum Total Protein 8.0 (6.3-8.2) g/dL Albumin 4.0 (3.5-5.0) g/dL Lipase 81 (23-300) U/L Urine Color YELLOW (YELLOW) Urine Appearance CLEAR (CLEAR) Urine pH 7.0 (5-6) Ur Specific [place] 1.012 (1.005-1.025) Urine Protein NEGATIVE (Negative) Urine Ketones NEGATIVE (NEGATIVE) Urine Blood LARGE (0-5) Darrin/ul Urine Nitrite NEGATIVE (NEGATIVE) Urine Bilirubin NEGATIVE (NEGATIVE) Urine Urobilinogen NEGATIVE (0-1) mg/dL Ur Leukocyte Esterase TRACE (NEGATIVE) Urine WBC (Auto) 3-5 (0-5) /HPF Urine RBC (Auto) 6-10 (0-2) /HPF U Epithel Cells (Auto) RARE (FEW) /HPF Urine Bacteria (Auto) NONE (NEGATIVE) /HPF Urine Mucus (Auto) SLIGHT (NEGATIVE) /HPF Urine Culture Reflexed YES (NO) Urine Glucose NEGATIVE (NEGATIVE) mg/dL Accuchecks Accucheck Value: 169 - Radiology Impressions Radiology Exams & Impressions: Radiology Procedures Category Date Time Status OBSTR/ACUTE ABDOMEN SERIES Stat Exams 01/14/20 10:55 Completed VENOUS UNILAT/LIMITED EXTREMIT [US] Stat Exams 01/14/20 10:57 Completed Assessment/Plan (1) Cellulitis of right lower extremity Current Visit: Yes Status: Acute Assessment & Plan: on vanc/zosyn, will pursue ECF placement when discharged Code(s): L03.115 - CELLULITIS OF RIGHT LOWER LIMB (2) Pulmonary embolism Current Visit: Yes Status: Acute Assessment & Plan: lovenox Code(s): I26.99 - OTHER PULMONARY EMBOLISM WITHOUT ACUTE COR PULMONALE (3) Morbid obesity Current Visit: No Status: Acute Code(s): E66.01 - MORBID (SEVERE) OBESITY DUE TO EXCESS CALORIES (4) Below knee amputation Current Visit: No Status: Chronic Code(s): S88.119A - COMPLETE TRAUM AMP AT LEV BETW KN & ANKL, UNSP LOW LEG, INIT (5) Chronic hypoxemic respiratory failure Current Visit: No Status: Chronic (6) Hypoxemia Current Visit: No Status: Chronic Code(s): R09.02 - HYPOXEMIA
[2020-01-14] MEDS: Zosyn 3.375 GM Vial 3.375 GM in Sodium Chloride 100ML MINI-BAG PLUS 100 ML IV SCH ×2 (17:40→23:19)
[2020-01-14] MEDS: ENOXAPARIN SODIUM SQ SCH (17:45)
[2020-01-14] MEDS: Lasix 40 MG PO SCH (17:45)
[2020-01-14] MEDS: Paxil 20 MG PO SCH (17:45)
[2020-01-14] MEDS: ZOCOR 20MG PO SCH (17:58)
[2020-01-14] MEDS: VENTOLIN COMMON CANISTER IH SCH (19:07)
[2020-01-14] MEDS ORDERED: Sodium Chloride 0.9% 500 ML 500 ML IV ONE (20:36)
[2020-01-14] MEDS: Pepcid 20 MG PO SCH (21:23)
[2020-01-14] MEDS: VANCOMYCIN 2 GRAM/400 ML BAG 2 GM/400 ML PIGGYBACK IV SCH (21:23)
[2020-01-14] MEDS: Klor Con 10 MEQ PO SCH (21:23)
[2020-01-14] MEDS: Coreg 6.25 MG PO SCH (21:24)
[2020-01-14] MEDS: NEURONTIN 300 MG PO SCH (21:24)
[2020-01-14] MEDS ORDERED: NON-FORMULARY ITEM (Gabapentin [Gabapentin] 600 MG) PO SCH (22:00)
[2020-01-15] MEDS ORDERED: PROVENTIL 2.5 MG/3 ML NEB IH ONE (00:53)
[2020-01-15] MEDS: VENTOLIN COMMON CANISTER IH SCH ×4 (01:03→18:56)
[2020-01-15 05:16] LABS: Hemoglobin 11.4 gm/dl (12.0-16.0); Mean Cell Volume 91.8 fl (78-100); Mean Corpuscular Hemoglobin 26.8 pg (26-32); Mean Corpuscular Hgb Concent. 29.2 g/dl (32-36); Mean Platelet Volume 10.5 fl (7.5-11.0); Platelet Count 196 K/mm3 (150-450); Red Blood Count 4.25 M/mm3 (4.1-5.4); Red Cell Distribution Width 17.7 % (11.5-14.0); White Blood Count 4.5 K/mm3 (4.0-10.5)
[2020-01-15] MEDS: Zosyn 3.375 GM Vial 3.375 GM in Sodium Chloride 100ML MINI-BAG PLUS 100 ML IV SCH ×4 (05:27→23:11)
[2020-01-15] MEDS: ENOXAPARIN SODIUM SQ SCH ×2 (05:27→17:16)
[2020-01-15 05:30] LABS: ALBUMIN 3.6 g/dL (3.5-5.0); ALKALINE PHOSPHATASE 54 U/L (38-126); ANION GAP 9.6 MEQ/L (5-15); BLOOD UREA NITROGEN 13 mg/dL (7-17); CHLORIDE 103 mmol/L (98-107); Carbon Dioxide 33 mmol/L (22-30); Creatinine 1 0.58 mg/dL (0.52-1.04); Glucose 168 mg/dL (74-106); Potassium 3.7 mmol/L (3.5-5.1); SGOT/AST 28 U/L (14-36); SGPT/ALT 24 U/L (0-35); SODIUM 142 mmol/L (137-145); Total Protein 7.2 g/dL (6.3-8.2)
[2020-01-15 05:40] LABS: ANISOCYTOSIS 1+; Eosinophil 1 % (0.00-3.0); Lymphocytes 33 % (24-44); Monocyte 3 % (0.0-12.0); Neutrophils 63 % (36.0-66.0); Poikilocytosis 1+; Polychromasia 1+; Total Cells Counted 100
[2020-01-15 05:41] LABS: Platelet Estimate NORMAL (NORMAL)
[2020-01-15] MEDS: Spiriva 18 Mcg/Cap Inhaler IH SCH (07:20)
[2020-01-15] MEDS: HUMALOG SQ PRN ×3 (07:46→21:52)
--- NOTE | 2020-01-15 08:36 | PCM.NOTE ---
Date and Time: 01/15/20833 Subjective Assessment: no new complaints, breathing is good per patient. no changes Objective Exam General Appearance: no apparent distress, obese Neurologic Exam: alert, oriented x 3 Respiratory Exam: diminished breath sounds, prolonged expirations Cardiovascular Exam: regular rate/rhythm, normal heart sounds Gastrointestinal/Abdomen Exam: soft, No tenderness, No mass Extremity Exam: other (erythema right ankle, mild warmth) OBJECTIVE DATA Vital Signs: Vital Signs - 24 hr Temp Pulse Resp BP Pulse Ox 01/15/20 08:00 98.1 F 65 18 111/55 93 L 01/15/20 07:20 68 20 95 01/15/20 04:00 97.3 F 63 16 103/55 90 L 01/15/20 01:03 65 21 91 L 01/15/20 00:00 98 F 66 20 117/56 93 L 01/14/20 19:37 98.9 F 68 22 121/57 90 L 01/14/20 19:07 67 20 90 L 01/14/20 17:45 92 L 01/14/20 17:35 79 L 01/14/20 17:33 94 L 01/14/20 16:19 99.3 F 64 18 133/76 98 01/14/20 15:08 64 18 133/76 98 01/14/20 14:12 64 20 114/63 96 01/14/20 13:22 65 18 130/69 92 L 01/14/20 12:29 66 18 90 L 01/14/20 10:34 99.3 F 69 24 116/69 94 L Pain Assessment - Last Documented Pain Intensity 2 Pain Scale Used 0-10 Pain Scale Intake and Output: Intake & Output 01/12/20 01/13/20 01/14/20 01/15/20 11:59 11:59 11:59 11:59 Intake Total 1229 Output Total 1150 Balance 79 Weight 152.5 kg 149.4 kg Lab Results: Accuchecks Date 01/15/20 Date 01/14/20 Date 01/14/20 Time 07:47 Time 22:00 Time 16:45 Accucheck Value: 168 Accucheck Value: 167 Accucheck Value: 163 Accucheck Value: 169 Lab Results-Last 24 Hours 01/14/20 01/14/20 01/14/20 Range/Units 11:20 11:33 11:35 WBC 5.2 (4.0-10.5) K/mm3 RBC 4.70 (4.1-5.4) M/mm3 Hgb 12.6 (12.0-16.0) gm/dl Hct 42.0 (35-47) % MCV 89.4 (78-100) fl MCH 26.8 (26-32) pg MCHC 30.0 L (32-36) g/dl RDW 17.7 H (11.5-14.0) % Plt Count 157 (150-450) K/mm3 MPV 11.9 H (7.5-11.0) fl Segmented Neutrophils 68 H (36.0-66.0) % Lymphocytes (Manual) 23 L (24-44) % Monocytes (Manual) 5 (0.0-12.0) % Eosinophils (Manual) 4 H (0.00-3.0) % Toxic Granulation 1+ Platelet Estimate NORMAL (NORMAL) RBC Morphology ABNORMAL Polychromasia RARE Poikilocytosis Anisocytosis 1+ Sodium (137-145) mmol/L Potassium (3.5-5.1) mmol/L Chloride (98-107) mmol/L Carbon Dioxide (22-30) mmol/L Anion Gap (5-15) MEQ/L BUN (7-17) mg/dL Creatinine (0.52-1.04) mg/dL Estimated GFR ML/MIN Glucose (74-106) mg/dL Lactic Acid 1.1 (0.4-2.0) Calcium (8.4-10.2) mg/dL Total Bilirubin (0.2-1.3) mg/dL AST (14-36) U/L ALT (0-35) U/L Alkaline Phosphatase (38-126) U/L Creatine Kinase 35 (30-135) U/L Serum Total Protein (6.3-8.2) g/dL Albumin (3.5-5.0) g/dL Lipase (23-300) U/L Urine Color (YELLOW) Urine Appearance (CLEAR) Urine pH (5-6) Ur Specific [place] (1.005-1.025) Urine Protein (Negative) Urine Ketones (NEGATIVE) Urine Blood (0-5) Darrin/ul Urine Nitrite (NEGATIVE) Urine Bilirubin (NEGATIVE) Urine Urobilinogen (0-1) mg/dL Ur Leukocyte Esterase (NEGATIVE) Urine WBC (Auto) (0-5) /HPF Urine RBC (Auto) (0-2) /HPF U Epithel Cells (Auto) (FEW) /HPF Urine Bacteria (Auto) (NEGATIVE) /HPF Urine Mucus (Auto) (NEGATIVE) /HPF Urine Culture Reflexed (NO) Urine Glucose (NEGATIVE) mg/dL 01/14/20 01/14/20 01/15/20 Range/Units 11:35 14:30 04:21 WBC 4.5 (4.0-10.5) K/mm3 RBC 4.25 (4.1-5.4) M/mm3 Hgb 11.4 L (12.0-16.0) gm/dl Hct 39.0 (35-47) % MCV 91.8 (78-100) fl MCH 26.8 (26-32) pg MCHC 29.2 L (32-36) g/dl RDW 17.7 H (11.5-14.0) % Plt Count 196 (150-450) K/mm3 MPV 10.5 (7.5-11.0) fl Segmented Neutrophils 63 (36.0-66.0) % Lymphocytes (Manual) 33 (24-44) % Monocytes (Manual) 3 (0.0-12.0) % Eosinophils (Manual) 1 (0.00-3.0) % Toxic Granulation Platelet Estimate NORMAL (NORMAL) RBC Morphology ABNORMAL Polychromasia 1+ Poikilocytosis 1+ Anisocytosis 1+ Sodium 141 (137-145) mmol/L Potassium 3.9 (3.5-5.1) mmol/L Chloride 101 (98-107) mmol/L Carbon Dioxide 34 H (22-30) mmol/L Anion Gap 10.5 (5-15) MEQ/L BUN 15 (7-17) mg/dL Creatinine 0.51 L (0.52-1.04) mg/dL Estimated GFR > 60.0 ML/MIN Glucose 186 H (74-106) mg/dL Lactic Acid (0.4-2.0) Calcium 9.3 (8.4-10.2) mg/dL Total Bilirubin 0.70 (0.2-1.3) mg/dL AST 28 (14-36) U/L ALT 25 (0-35) U/L Alkaline Phosphatase 62 (38-126) U/L Creatine Kinase (30-135) U/L Serum Total Protein 8.0 (6.3-8.2) g/dL Albumin 4.0 (3.5-5.0) g/dL Lipase 81 (23-300) U/L Urine Color YELLOW (YELLOW) Urine Appearance CLEAR (CLEAR) Urine pH 7.0 (5-6) Ur Specific [place] 1.012 (1.005-1.025) Urine Protein NEGATIVE (Negative) Urine Ketones NEGATIVE (NEGATIVE) Urine Blood LARGE (0-5) Darrin/ul Urine Nitrite NEGATIVE (NEGATIVE) Urine Bilirubin NEGATIVE (NEGATIVE) Urine Urobilinogen NEGATIVE (0-1) mg/dL Ur Leukocyte Esterase TRACE (NEGATIVE) Urine WBC (Auto) 3-5 (0-5) /HPF Urine RBC (Auto) 6-10 (0-2) /HPF U Epithel Cells (Auto) RARE (FEW) /HPF Urine Bacteria (Auto) NONE (NEGATIVE) /HPF Urine Mucus (Auto) SLIGHT (NEGATIVE) /HPF Urine Culture Reflexed YES (NO) Urine Glucose NEGATIVE (NEGATIVE) mg/dL 01/15/20 Range/Units 04:21 WBC (4.0-10.5) K/mm3 RBC (4.1-5.4) M/mm3 Hgb (12.0-16.0) gm/dl Hct (35-47) % MCV (78-100) fl MCH (26-32) pg MCHC (32-36) g/dl RDW (11.5-14.0) % Plt Count (150-450) K/mm3 MPV (7.5-11.0) fl Segmented Neutrophils (36.0-66.0) % Lymphocytes (Manual) (24-44) % Monocytes (Manual) (0.0-12.0) % Eosinophils (Manual) (0.00-3.0) % Toxic Granulation Platelet Estimate (NORMAL) RBC Morphology Polychromasia Poikilocytosis Anisocytosis Sodium 142 (137-145) mmol/L Potassium 3.7 (3.5-5.1) mmol/L Chloride 103 (98-107) mmol/L Carbon Dioxide 33 H (22-30) mmol/L Anion Gap 9.6 (5-15) MEQ/L BUN 13 (7-17) mg/dL Creatinine 0.58 (0.52-1.04) mg/dL Estimated GFR > 60.0 ML/MIN Glucose 168 H (74-106) mg/dL Lactic Acid (0.4-2.0) Calcium 9.0 (8.4-10.2) mg/dL Total Bilirubin 0.90 (0.2-1.3) mg/dL AST 28 (14-36) U/L ALT 24 (0-35) U/L Alkaline Phosphatase 54 (38-126) U/L Creatine Kinase (30-135) U/L Serum Total Protein 7.2 (6.3-8.2) g/dL Albumin 3.6 (3.5-5.0) g/dL Lipase (23-300) U/L Urine Color (YELLOW) Urine Appearance (CLEAR) Urine pH (5-6) Ur Specific [place] (1.005-1.025) Urine Protein (Negative) Urine Ketones (NEGATIVE) Urine Blood (0-5) Darrin/ul Urine Nitrite (NEGATIVE) Urine Bilirubin (NEGATIVE) Urine Urobilinogen (0-1) mg/dL Ur Leukocyte Esterase (NEGATIVE) Urine WBC (Auto) (0-5) /HPF Urine RBC (Auto) (0-2) /HPF U Epithel Cells (Auto) (FEW) /HPF Urine Bacteria (Auto) (NEGATIVE) /HPF Urine Mucus (Auto) (NEGATIVE) /HPF Urine Culture Reflexed (NO) Urine Glucose (NEGATIVE) mg/dL Radiology Exams: Radiology Procedures Category Date Time Status OBSTR/ACUTE ABDOMEN SERIES Stat Exams 01/14/20 10:55 Completed VENOUS UNILAT/LIMITED EXTREMIT [US] Stat Exams 01/14/20 10:57 Completed Multi-Disciplinary Progress Notes: Multi-Disciplinary Progress Notes 01/14/20 17:35 (created 01/14/20 17:46) Respiratory Note by Tricia Guzman PT EATING DINNER WITH OXYMASK OFF. OXYMASK RUNNING AT 5LPM AT FLOWMETER. PT'S O2 SAT WAS 79% ON ROOM AIR WHILE AT REST. PT WAS CHANGED OVER TO 5LPM OXYMIZER AT THIS TIME. O2 SAT INCREASED TO 92%. PT ENCOURAGED TO LEAVE OXYGEN ON AT ALL TIMES. Initialized on 01/14/20 17:46 - END OF NOTE 01/14/20 16:22 Pharmacy Note by Beni Donahue Vancomycin dose increased to 2gm q12h for patient's weight. Will check trough Tuesday. Initialized on 01/14/20 16:22 - END OF NOTE Assessment/Plan (1) Cellulitis of right lower extremity Current Visit: Yes Status: Acute Assessment & Plan: on vanc/zosyn Code(s): L03.115 - CELLULITIS OF RIGHT LOWER LIMB (2) Pulmonary embolism Current Visit: Yes Status: Acute Assessment & Plan: lovenox, will be on eliquis [facility] Code(s): I26.99 - OTHER PULMONARY EMBOLISM WITHOUT ACUTE COR PULMONALE (3) Morbid obesity Current Visit: No Status: Acute Code(s): E66.01 - MORBID (SEVERE) OBESITY DUE TO EXCESS CALORIES (4) Below knee amputation Current Visit: No Status: Chronic Assessment & Plan: planning for rehab stay at [facility] on discharge per patient Code(s): S88.119A - COMPLETE TRAUM AMP AT [address] [place] & ANKL, UNSP LOW LEG, INIT (5) Chronic hypoxemic respiratory failure Current Visit: Yes Status: Chronic (6) Hypoxemia Current Visit: No Status: Chronic Code(s): R09.02 - HYPOXEMIA
[2020-01-15] MEDS: Klor Con 10 MEQ PO SCH ×2 (09:52→21:52)
[2020-01-15] MEDS: NEURONTIN 300 MG PO SCH ×3 (09:52→21:52)
[2020-01-15] MEDS: Paxil 20 MG PO SCH (09:52)
[2020-01-15] MEDS: Coreg 6.25 MG PO SCH ×2 (09:53→21:52)
[2020-01-15] MEDS: VANCOMYCIN 2 GRAM/400 ML BAG 2 GM/400 ML PIGGYBACK IV SCH ×2 (09:53→21:53)
[2020-01-15] MEDS: Lantus Insulin SQ SCH (09:53)
[2020-01-15] MEDS: ZOCOR 20MG PO SCH (09:53)
[2020-01-15] MEDS: Lasix 40 MG PO SCH ×2 (09:53→17:16)
[2020-01-15] MEDS ORDERED: INSULIN DEGLUDEC SQ SCH (10:00)
[2020-01-15] MEDS ORDERED: NON-FORMULARY ITEM (Pravastatin Sodium [Pravastatin Sodium] 20 MG) PO SCH (10:00)
[2020-01-15] MEDS ORDERED: Sodium Chloride 100ML MINI-BAG PLUS 100 ML IV ONE (11:26)
[2020-01-15 15:43] LABS: 027 TOX PROD PRESUMPTIVE NEGATIVE (NEGATIVE); TOXIGENIC C. DIFF ORG NEGATIVE (NEGATIVE)
[2020-01-15] MEDS: Pepcid 20 MG PO SCH (21:52)
[2020-01-16] MEDS: VENTOLIN COMMON CANISTER IH SCH ×2 (01:05→07:12)
[2020-01-16] MEDS ORDERED: Sodium Chloride 0.9% 500 ML 500 ML IV ONE (01:32)
[2020-01-16] MEDS: Zosyn 3.375 GM Vial 3.375 GM in Sodium Chloride 100ML MINI-BAG PLUS 100 ML IV SCH (05:03)
[2020-01-16] MEDS: ENOXAPARIN SODIUM SQ SCH (05:03)
[2020-01-16] MEDS: Spiriva 18 Mcg/Cap Inhaler IH SCH (07:12)
[2020-01-16 07:24] LABS: Hematocrit 39.1 % (35-47); Hemoglobin 11.4 gm/dl (12.0-16.0); Mean Corpuscular Hemoglobin 26.8 pg (26-32); Mean Corpuscular Hgb Concent. 29.2 g/dl (32-36); Mean Platelet Volume 10.4 fl (7.5-11.0); Platelet Count 200 K/mm3 (150-450); Red Blood Count 4.25 M/mm3 (4.1-5.4); Red Cell Distribution Width 17.6 % (11.5-14.0); White Blood Count 4.5 K/mm3 (4.0-10.5)
[2020-01-16 07:32] LABS: BLOOD UREA NITROGEN 11 mg/dL (7-17); CHLORIDE 104 mmol/L (98-107); Calcium 8.9 mg/dL (8.4-10.2); Carbon Dioxide 32 mmol/L (22-30); Glucose 175 mg/dL (74-106); Potassium 3.7 mmol/L (3.5-5.1); SODIUM 141 mmol/L (137-145)
[2020-01-16] MEDS: HUMALOG SQ PRN ×2 (07:41→11:11)
--- NOTE | 2020-01-16 08:02 | PCM.DS ---
Discharge Summary Date of Admission: 01/14/20 16:11 Admitting Physician: MARZENA ATWOOD Primary Care Provider: ROGERIO WHITING Allergies Allergies No Known Drug Allergies Allergy (Verified 12/25/19 15:09) Hospital Summary - Hospital Course Hospital Course: patient admitted with cellulitis of right lower leg, recently treated for pneumonia at [facility], has no cough and breathing is good, on oxygen chronically. erythema to right lower leg is improving, going to [place] for rehab stay - Vitals & Intake/Output Vital Signs: Vital Signs Temperature 98.0 F 01/16/20 06:44 Pulse Rate 62 01/16/20 07:17 Respiratory Rate 16 01/16/20 07:17 Blood Pressure 134/57 01/16/20 06:44 O2 Sat by Pulse Oximetry 90 L 01/16/20 07:17 Intake & Output: Intake & Output 01/13/20 01/14/20 01/15/20 01/16/20 11:59 11:59 11:59 11:59 Intake Total 1709 3463 Output Total 1150 1150 Balance 559 2313 Weight 152.5 kg 149.4 kg 151.5 kg - Lab Result Diagrams: 01/16/20 07:05 01/16/20 07:05 Lab Results-Last 24 Hrs: Accuchecks Date 01/15/20 Date 01/15/20 Date 01/15/20 Time 22:00 Time 16:30 Time 11:30 Accucheck Value: 174 Accucheck Value: 255 Accucheck Value: 194 Accucheck Value: 291 Lab Results-Last 24 Hours 01/15/20 01/16/20 01/16/20 Range/Units 13:40 07:05 07:05 WBC 4.5 (4.0-10.5) K/mm3 RBC 4.25 (4.1-5.4) M/mm3 Hgb 11.4 L (12.0-16.0) gm/dl Hct 39.1 (35-47) % MCV 92.0 (78-100) fl MCH 26.8 (26-32) pg MCHC 29.2 L (32-36) g/dl RDW 17.6 H (11.5-14.0) % Plt Count 200 (150-450) K/mm3 MPV 10.4 (7.5-11.0) fl Sodium 141 (137-145) mmol/L Potassium 3.7 (3.5-5.1) mmol/L Chloride 104 (98-107) mmol/L Carbon Dioxide 32 H (22-30) mmol/L Anion Gap 9.0 (5-15) MEQ/L BUN 11 (7-17) mg/dL Creatinine 0.50 L (0.52-1.04) mg/dL Estimated GFR > 60.0 ML/MIN Glucose 175 H (74-106) mg/dL Calcium 8.9 (8.4-10.2) mg/dL C. difficile Screen NEGATIVE (NEGATIVE) C.difficile [id number] PRESUMPTIVE NEGATIVE (NEGATIVE) Micro Results-Entire Visit: Microbiology 01/14/20 14:30 Urine Culture - Final Urine, Void Enterococcus Faecalis Accuchecks Date 01/15/20 Date 01/15/20 Date 01/15/20 Time 22:00 Time 16:30 Time 11:30 Accucheck Value: 174 Accucheck Value: 255 Accucheck Value: 194 Accucheck Value: 291 - Radiology Exams Ordered Rad Exams-Entire Visit: Radiology Procedures Category Date Time Status OBSTR/ACUTE ABDOMEN SERIES Stat Exams 01/14/20 10:55 Completed VENOUS UNILAT/LIMITED EXTREMIT [US] Stat Exams 01/14/20 10:57 Completed - Procedures and Test Procedures and Tests throughout Hospitalization: Therapy Orders & Screens 01/14/20 17:42 Oxygen Oxymask LPM 5 lpm Comment: Diagnosis: cellulitis 01/14/20 17:43 Respiratory Therapy Assessment DAILY Comment: Diagnosis: cellulitis Discharge Exam General Appearance: no apparent distress, obese Neurologic Exam: alert, oriented x 3 Respiratory Exam: normal breath sounds, lungs clear, No respiratory distress Cardiovascular Exam: regular rate/rhythm, normal heart sounds Gastrointestinal/Abdomen Exam: soft, No tenderness, No mass Extremity Exam: other (left BKA, right lower leg mild erythema improving) Final Diagnosis/Problem List - Final Discharge Diagnosis/Problem (1) Cellulitis of right lower extremity Current Visit: Yes Status: Acute Assessment & Plan: improved, continue doxy and omnicef on discharge as ordered Code(s): L03.115 - CELLULITIS OF RIGHT LOWER LIMB (2) Pulmonary embolism Current Visit: Yes Status: Acute Assessment & Plan: eliquis 5mg bid, has been covered with lovenox here and at [facility] Code(s): I26.99 - OTHER PULMONARY EMBOLISM WITHOUT ACUTE COR PULMONALE (3) Morbid obesity Current Visit: No Status: Acute Code(s): E66.01 - MORBID (SEVERE) OBESITY DUE TO EXCESS CALORIES (4) Below knee amputation Current Visit: No Status: Chronic Code(s): S88.119A - COMPLETE TRAUM AMP AT LEV BETW KN & ANKL, UNSP LOW LEG, INIT (5) Chronic hypoxemic respiratory failure Current Visit: Yes Status: Chronic - Discharge Disposition: Skilled Care @ [facility] Condition: Stable Prescriptions: New Hydrocodone/APAP 5-325 Tab^^^ [[place] 5-325 Tablet^^^] 1 tab PO Q6HPRN PRN #60 tablet MDD 6 PRN Reason: Pain Continue Albuterol Common Canister [Ventolin Common Canister] 2 puff IH Q6H Tiotropium [place] Inhaler [Spiriva 18 Mcg/Cap Inhaler] 1 puff IH DAILY Pravastatin Sodium 20 mg PO DAILY Potassium Chloride 10 Meq Tab* [Klor Con 10 MEQ] 20 meq PO BID Paroxetine HCl 20 mg [Paxil 20 MG] 20 mg PO DAILY Metformin HCl 500 mg [Glucophage 500 MG] 1,000 mg PO BIDWM Insulin Degludec [Tresiba Flextouch U-200] 145 unit SQ DAILY Insulin Aspart [Novolog] 1 unit SQ UD Gabapentin 600 mg PO TID Furosemide 40 mg [Lasix 40 MG] 40 mg PO BID Famotidine 20 mg [Pepcid 20 MG] 40 mg PO HS Carvedilol 6.25 mg [Coreg 6.25 MG] 6.25 mg PO BID Apixaban [Eliquis] 5 mg PO BID Cefdinir 300 mg PO BID #10 cap Doxycycline Hyclate 100 mg PO BID #10 cap Discontinued Apixaban [Eliquis] 10 mg PO BID
[2020-01-16] MEDS: Coreg 6.25 MG PO SCH (09:03)
[2020-01-16] MEDS: Klor Con 10 MEQ PO SCH (09:03)
[2020-01-16] MEDS: Lantus Insulin SQ SCH (09:03)
[2020-01-16] MEDS: Lasix 40 MG PO SCH (09:04)
[2020-01-16] MEDS: NEURONTIN 300 MG PO SCH (09:04)
[2020-01-16] MEDS: ZOCOR 20MG PO SCH (09:04)
[2020-01-16] MEDS: Paxil 20 MG PO SCH (09:04)
[2020-01-16] MEDS: VANCOMYCIN 2 GRAM/400 ML BAG 2 GM/400 ML PIGGYBACK IV SCH (09:04)
[2020-01-16] MEDS ORDERED: TROUGH DRUG LEVELS IJ ONE (09:30)
[2020-01-16 09:33] LABS: Eosinophil 3 % (0.00-3.0); Lymphocytes 20 % (24-44); Monocyte 11 % (0.0-12.0); Neutrophils 66 % (36.0-66.0); Platelet Estimate NORMAL (NORMAL); Total Cells Counted 100
[2020-01-16 09:37] LABS: ANISOCYTOSIS 1+; Basophilic Stippling RARE; Polychromasia 1+; Toxic Granulation 1+
[2020-01-16 11:09] VITALS: BP 127/78; PULSE 61; O2SAT 95
== END 2020-01-16 12:15 | DRG 602 ==
LOC: ED 10:32 → MED SURG 15:37 → OBSVTOIN 16:11
PROVIDERS: ADMIT Family Medicine; ATTEND Family Medicine
DX: L03.115 Cellulitis of right lower limb (principal); I26.99 Other pulmonary embolism without acute cor pulmonale; J96.11 Chronic respiratory failure with hypoxia; Z99.81 Dependence on supplemental oxygen; M79.661 Pain in right lower leg; E66.01 Morbid (severe) obesity due to excess calories; E11.9 Type 2 diabetes mellitus without complications; I10 Essential (primary) hypertension; E78.00 Pure hypercholesterolemia, unspecified; Z79.899 Other long term (current) drug therapy; Z79.01 Long term (current) use of anticoagulants; Z89.512 Acquired absence of left leg below knee
CPT/HCPCS: 36000; 36415; 74022; 80048; 80053; 80202; 81001; 82550; 82962; 83605; 83690; 85025; 87040; 87077; 87086; 87186; 87493; 93971; 94640; 94760; 96365; 96368; 99285; J1650; J1817; J7609; A9270-GY; J3370

== ENCOUNTER 2020-12-28 12:36 | Observation (INO) | payer MEDICARE ==
[2020-12-28] MEDS ORDERED: solu-MEDROL 125 MG IV ONE (12:43)
[2020-12-28] MEDS ORDERED: Sodium Chloride 0.9% 1000 ML 1,000 ML IV SCH (12:45)
[2020-12-28] MEDS ORDERED: solu-MEDROL 125 MG ONE (13:11)
[2020-12-28 13:37] LABS: Hematocrit 47.2 % (35-47); Hemoglobin 14.5 gm/dl (12.0-16.0); INR 1.15 (0.8-3.0); Mean Cell Volume 84.9 fl (78-100); Mean Corpuscular Hemoglobin 26.1 pg (26-32); Mean Corpuscular Hgb Concent. 30.7 g/dl (32-36); Mean Platelet Volume 10.4 fl (7.5-11.0); PROTIME 13.6 SECONDS (9.4-12.5); Platelet Count 251 K/mm3 (150-450); Red Blood Count 5.56 M/mm3 (4.1-5.4); Red Cell Distribution Width 20.1 % (11.5-14.0); White Blood Count 5.9 K/mm3 (4.0-10.5)
--- NOTE | 2020-12-28 13:39 | ERPHSYRPT ---
- History of Present Illness Time Seen by Provider: 12/28/20 12:45 Source: patient, EMS Exam Limitations: no limitations Patient Subjective Stated Complaint: SOB, COPD Triage Nursing Assessment: pt to ED c/o SOB onset last night while getting ready for bed. states she was wearing CPAP, removed it, and began feeling SOB. wears CPAP nightly, 3 L NC at all other times. denies pain now. states she is feeling slightly better after breathing tx in EMS. Physician History: Patient is a 60-year-old female with longstanding COPD who presents with a complaint of increasing shortness of breath since last evening. She is normally on 3 L at home and uses CPAP at night. She was given DuoNeb by EMS in route and seem to get some improvement. She denies any fever chills or sweats. Temperature on arrival was 97.3. Blood sugar was 263 per EMS O2 sats in the low 90s respiratory rate was 18. Timing/Duration: yesterday Activities at Onset: none Severity of Dyspnea-Max: moderate Severity of Dyspnea-Current: mild Possible Cause: frequent episodes Modifying Factors: Improves With: activity, albuterol nebulizer, deep breath Associated Symptoms: cough, wheezing Allergies/Adverse Reactions: No Known Drug Allergies Allergy (Verified 12/28/20 12:52) Home Medications: Carvedilol 6.25 mg [Coreg 6.25 MG] 6.25 mg PO BID 01/14/20 [History] Famotidine 20 mg [Pepcid 20 MG] 40 mg PO HS 01/14/20 [History] Furosemide 40 mg [Lasix 40 MG] 40 mg PO BID 01/14/20 [History] Gabapentin 600 mg PO TID 01/14/20 [History] Insulin Aspart [Novolog] 1 unit SQ UD 01/14/20 [History] Insulin Degludec [Tresiba Flextouch U-200] 80 unit SQ BID 01/14/20 [History] Metformin HCl 500 mg [Glucophage 500 MG] 1,000 mg PO BIDWM 01/14/20 [History] Paroxetine HCl 20 mg [Paxil 20 MG] 20 mg PO DAILY 01/14/20 [History] Potassium Chloride 10 Meq Tab* [Klor Con 10 MEQ] 20 meq PO BID 01/14/20 [History] Pravastatin Sodium 20 mg PO DAILY 01/14/20 [History] Hx Tetanus, Diphtheria Vaccination/Date Given: No Hx Influenza Vaccination/Date Given: Yes Hx Pneumococcal Vaccination/Date Given: Yes Travel Risk - International Travel Have you traveled outside of the country in past 3 weeks: No - Coronavirus Screening Are you exhibiting any of the following symptoms?: Yes Symptoms: Shortness of Breath Close contact with a COVID-19 positive Pt in past 14-21 Days: No - Vaccine Status Have you recieved a Covid-19 vaccination: No - Review of Systems Constitutional: No Fever, No Chills Eyes: No Symptoms Ears, Nose, & Throat: No Symptoms Respiratory: Cough, Dyspnea, Dyspnea on Exertion (SRINIVASAN), Wheezing Cardiac: No Chest Pain, No Edema, No Syncope Abdominal/Gastrointestinal: No Abdominal Pain, No Nausea, No Vomiting, No Diarrhea Genitourinary Symptoms: No Dysuria Musculoskeletal: No Back Pain, No Neck Pain Skin: No Rash Neurological: No Dizziness, No Focal Weakness, No Sensory Changes Psychological: No Symptoms Endocrine: No Symptoms All Other Systems: Reviewed and Negative - Past Medical History Pertinent Past Medical History: Yes Neurological History: No Pertinent History ENT History: No Pertinent History Cardiac History: High Cholesterol, Hypertension Respiratory History: Sleep Apnea Endocrine Medical History: Diabetes Type II, Diabetes Type I Musculoskeletal History: No Pertinent History GI Medical History: No Pertinent History, Hemorrhoids History: No Pertinent History Psycho-Social History: Depression, Anxiety Female Reproductive Disorders: No Pertinent History Other Medical History: L Below knee amputation r/t diabetes - Past Surgical History Past Surgical History: Yes Neuro Surgical History: No Pertinent History Cardiac: No Pertinent History Respiratory: No Pertinent History Gastrointestinal: Cholecystectomy Genitourinary: No Pertinent History Musculoskeletal: Amputation, Prosthesis Female Surgical History: Hysterectomy, Tubal Ligation Other Surgical History: below knee amputation left leg / r/t diabetes - Social History Smoking Status: Former smoker How long have you smoked: 30 years Exposure to second hand smoke: Yes Drug Use: none Patient Lives Alone: Yes - Nursing Vital Signs Nursing Vital Signs: Initial Vital Signs Temperature 97.2 F 12/28/20 12:40 Pulse Rate 68 12/28/20 12:40 Respiratory Rate 24 12/28/20 12:40 O2 Sat by Pulse Oximetry 96 12/28/20 12:40 Pain Scale Pain Intensity 0 - Physical Exam General Appearance: no apparent distress, alert Eye Exam: PERRL/EOMI Neck Exam: normal inspection, supple Respiratory Exam: respiratory distress, wheezing Cardiovascular/Chest Exam: normal heart sounds, regular rate/rhythm Abdominal/Gastrointestinal Exam: soft, No tenderness, No distention, No mass Extremity Exam: non-tender, normal range of motion, normal inspection, no calf tenderness, no pedal edema Neurologic Exam: alert, oriented x 3, cooperative, coding assistant II-XII nml as tested, sensation nml, No motor deficits Skin Exam: normal color, warm, No dry SpO2 Interpretation: borderline oxygenation, O2 applied SpO2: 96 O2 Delivery: Nasal Cannula - Course Nursing assessment & vital signs reviewed: Yes - Radiology Exams Chest X-ray Interpretation: Interpreted by me, Other (Josep due to hot body habitus and to rotation. But no definite infiltrates) - CT Exams Chest CT Interpretation: Negative (Negative for pulmonary emboli no definite infiltrates some old granulomatous disease.) Ordered Tests: Active Orders 24 hr Category Date Time Status EKG-ER Only STAT Care 12/28/20 12:40 Active Oxygen-ED Only Nasal Cannula 3 lpm Care 12/28/20 12:40 Active CHEST 1 VIEW (PORTABLE) Stat Exams 12/28/20 13:36 Taken CHEST WITH CONTRAST [CT] Stat Exams 12/28/20 14:41 Taken AMYLASE Stat Lab 12/28/20 13:06 Completed BLOOD CULTURE Stat Lab 12/28/20 13:22 Received CBC W DIFF Stat Lab 12/28/20 13:06 Completed CMP Stat Lab 12/28/20 13:06 Completed CULTURE,URINE Stat Lab 12/28/20 13:06 Received D-DIMER QUANTITATIVE Stat Lab 12/28/20 13:06 Completed INFLUENZA A+B MARAL Stat Lab 12/28/20 13:06 Completed LIPASE Stat Lab 12/28/20 13:06 Completed Lactic Acid Stat Lab 12/28/20 12:58 Completed MAGNESIUM Stat Lab 12/28/20 13:06 Completed Manual Differential NC Stat Lab 12/28/20 13:06 Completed NT PRO BNP Stat Lab 12/28/20 13:06 Completed PROTIME WITH INR Stat Lab 12/28/20 13:06 Completed TROPONIN Q3H Lab 12/28/20 13:06 Completed TROPONIN Q3H Lab 12/28/20 15:45 Ordered TROPONIN Q3H Lab 12/28/20 18:45 Ordered TROPONIN Q3H Lab 12/28/20 21:45 Ordered TROPONIN Q3H Lab 12/29/20 00:45 Ordered UA W/RFX UR CULTURE Stat Lab 12/28/20 13:06 Completed Respiratory Therapy Consult ROUTINE RT 12/28/20 12:44 Active Medication Summary Generic Name Dose Route Start Last Admin Trade Name Freq PRN Reason Stop Dose Admin Sodium Chloride 1,000 mls @ 50 mls/hr 12/28/20 12:45 12/28/20 13:14 Sodium Chloride 0.9% 1000 Ml IV 01/27/21 12:44 50 mls/hr .Q20H KAYLYN Administration Discontinued Medications Generic Name Dose Route Start Last Admin Trade Name Freq PRN Reason Stop Dose Admin Methylprednisolone Sodium Succinate 125 mg 12/28/20 12:43 12/28/20 13:14 Solu-Medrol 125 Mg IV 12/28/20 12:44 125 mg STAT ONE Administration Methylprednisolone Sodium Succinate Confirm 12/28/20 13:11 Solu-Medrol 125 Mg Administered 12/28/20 13:12 Dose 125 mg .ROUTE .[facility] ONE Lab/Rad Data: Laboratory Result Diagrams 12/28/20 13:06 12/28/20 13:06 Laboratory Results 12/28/20 12/28/20 12/28/20 Range/Units 13:06 13:06 13:06 WBC (4.0-10.5) K/mm3 RBC (4.1-5.4) M/mm3 Hgb (12.0-16.0) gm/dl Hct (35-47) % MCV (78-100) fl MCH (26-32) pg MCHC (32-36) g/dl RDW (11.5-14.0) % Plt Count (150-450) K/mm3 MPV (7.5-11.0) fl Segmented Neutrophils (36.0-66.0) % Band Neutrophils (0.0-2.0) % Lymphocytes (Manual) (24-44) % Monocytes (Manual) (0.0-12.0) % Eosinophils (Manual) (0.00-3.0) % Nucleated RBCs % Platelet Estimate (NORMAL) RBC Morphology PT (9.4-12.5) SECONDS INR (0.8-3.0) D-Dimer (215-500) ng/mL Sodium (137-145) mmol/L Potassium (3.5-5.1) mmol/L Chloride (98-107) mmol/L Carbon Dioxide (22-30) mmol/L Anion Gap (5-15) MEQ/L BUN (7-17) mg/dL Creatinine (0.52-1.04) mg/dL Estimated GFR ML/MIN Glucose (74-106) mg/dL Lactic Acid (0.4-2.0) Calcium (8.4-10.2) mg/dL Magnesium (1.6-2.3) mg/dL Total Bilirubin (0.2-1.3) mg/dL AST (14-36) U/L ALT (0-35) U/L Alkaline Phosphatase (38-126) U/L Troponin I < 0.012 (0.000-0.034) ng/mL NT-Pro-B Natriuret Pep (0-900) pg/mL Serum Total Protein (6.3-8.2) g/dL Albumin (3.5-5.0) g/dL Amylase (30-110) U/L Lipase (23-300) U/L Urine Color (YELLOW) Urine Appearance (CLEAR) Urine pH (5-6) Ur Specific Sanders (1.005-1.025) Urine Protein (Negative) Urine Ketones (NEGATIVE) Urine Blood (0-5) Darrin/ul Urine Nitrite (NEGATIVE) Urine Bilirubin (NEGATIVE) Urine Urobilinogen (0-1) mg/dL Ur Leukocyte Esterase (NEGATIVE) Urine WBC (Auto) (0-5) /HPF Urine RBC (Auto) (0-2) /HPF U Epithel Cells (Auto) (FEW) /HPF Urine Bacteria (Auto) (NEGATIVE) /HPF Urine Mucus (Auto) (NEGATIVE) /HPF Urine Culture Reflexed (NO) Urine Glucose (NEGATIVE) mg/dL Influenza Type A Ag NEGATIVE (NEGATIVE) Influenza Type B Ag NEGATIVE (NEGATIVE) SARS-CoV-2 (PCR) NEGATIVE (NEGATIVE) 12/28/20 12/28/20 12/28/20 Range/Units 13:06 13:06 13:06 WBC (4.0-10.5) K/mm3 RBC (4.1-5.4) M/mm3 Hgb (12.0-16.0) gm/dl Hct (35-47) % MCV (78-100) fl MCH (26-32) pg MCHC (32-36) g/dl RDW (11.5-14.0) % Plt Count (150-450) K/mm3 MPV (7.5-11.0) fl Segmented Neutrophils (36.0-66.0) % Band Neutrophils (0.0-2.0) % Lymphocytes (Manual) (24-44) % Monocytes (Manual) (0.0-12.0) % Eosinophils (Manual) (0.00-3.0) % Nucleated RBCs % Platelet Estimate (NORMAL) RBC Morphology PT 13.6 H (9.4-12.5) SECONDS INR 1.15 (0.8-3.0) D-Dimer 1196 H* (215-500) ng/mL Sodium 138 (137-145) mmol/L Potassium 4.5 (3.5-5.1) mmol/L Chloride 102 (98-107) mmol/L Carbon Dioxide 27 (22-30) mmol/L Anion Gap 14.3 (5-15) MEQ/L BUN 17 (7-17) mg/dL Creatinine 0.53 (0.52-1.04) mg/dL Estimated GFR > 60.0 ML/MIN Glucose 273 H (74-106) mg/dL Lactic Acid (0.4-2.0) Calcium 9.4 (8.4-10.2) mg/dL Magnesium 1.4 L (1.6-2.3) mg/dL Total Bilirubin 0.80 (0.2-1.3) mg/dL AST 20 (14-36) U/L ALT 18 (0-35) U/L Alkaline Phosphatase 74 (38-126) U/L Troponin I (0.000-0.034) ng/mL NT-Pro-B Natriuret Pep 649 (0-900) pg/mL Serum Total Protein 7.6 (6.3-8.2) g/dL Albumin 4.3 (3.5-5.0) g/dL Amylase 52 (30-110) U/L Lipase 87 (23-300) U/L Urine Color YELLOW (YELLOW) Urine Appearance SLIGHTLY CLOUDY (CLEAR) Urine pH 6.0 (5-6) Ur Specific Sanders 1.011 (1.005-1.025) Urine Protein 30 (Negative) Urine Ketones NEGATIVE (NEGATIVE) Urine Blood NEGATIVE (0-5) Darrin/ul Urine Nitrite POSITIVE (NEGATIVE) Urine Bilirubin NEGATIVE (NEGATIVE) Urine Urobilinogen NEGATIVE (0-1) mg/dL Ur Leukocyte Esterase MODERATE (NEGATIVE) Urine WBC (Auto) 51-100 (0-5) /HPF Urine RBC (Auto) 0-2 (0-2) /HPF U Epithel Cells (Auto) RARE (FEW) /HPF Urine Bacteria (Auto) MODERATE (NEGATIVE) /HPF Urine Mucus (Auto) SLIGHT (NEGATIVE) /HPF Urine Culture Reflexed YES (NO) Urine Glucose 50 (NEGATIVE) mg/dL Influenza Type A Ag (NEGATIVE) Influenza Type B Ag (NEGATIVE) SARS-CoV-2 (PCR) (NEGATIVE) 12/28/20 12/28/20 Range/Units 13:06 12:58 WBC 5.9 (4.0-10.5) K/mm3 RBC 5.56 H (4.1-5.4) M/mm3 Hgb 14.5 (12.0-16.0) gm/dl Hct 47.2 H (35-47) % MCV 84.9 (78-100) fl MCH 26.1 (26-32) pg MCHC 30.7 L (32-36) g/dl RDW 20.1 H (11.5-14.0) % Plt Count 251 (150-450) K/mm3 MPV 10.4 (7.5-11.0) fl Segmented Neutrophils 72 H (36.0-66.0) % Band Neutrophils 4 H (0.0-2.0) % Lymphocytes (Manual) 19 L (24-44) % Monocytes (Manual) 3 (0.0-12.0) % Eosinophils (Manual) 2 (0.00-3.0) % Nucleated RBCs 1 % Platelet Estimate NORMAL (NORMAL) RBC Morphology NORMAL PT (9.4-12.5) SECONDS INR (0.8-3.0) D-Dimer (215-500) ng/mL Sodium (137-145) mmol/L Potassium (3.5-5.1) mmol/L Chloride (98-107) mmol/L Carbon Dioxide (22-30) mmol/L Anion Gap (5-15) MEQ/L BUN (7-17) mg/dL Creatinine (0.52-1.04) mg/dL Estimated GFR ML/MIN Glucose (74-106) mg/dL Lactic Acid 1.5 (0.4-2.0) Calcium (8.4-10.2) mg/dL Magnesium (1.6-2.3) mg/dL Total Bilirubin (0.2-1.3) mg/dL AST (14-36) U/L ALT (0-35) U/L Alkaline Phosphatase (38-126) U/L Troponin I (0.000-0.034) ng/mL NT-Pro-B Natriuret Pep (0-900) pg/mL Serum Total Protein (6.3-8.2) g/dL Albumin (3.5-5.0) g/dL Amylase (30-110) U/L Lipase (23-300) U/L Urine Color (YELLOW) Urine Appearance (CLEAR) Urine pH (5-6) Ur Specific Sanders (1.005-1.025) Urine Protein (Negative) Urine Ketones (NEGATIVE) Urine Blood (0-5) Darrin/ul Urine Nitrite (NEGATIVE) Urine Bilirubin (NEGATIVE) Urine Urobilinogen (0-1) mg/dL Ur Leukocyte Esterase (NEGATIVE) Urine WBC (Auto) (0-5) /HPF Urine RBC (Auto) (0-2) /HPF U Epithel Cells (Auto) (FEW) /HPF Urine Bacteria (Auto) (NEGATIVE) /HPF Urine Mucus (Auto) (NEGATIVE) /HPF Urine Culture Reflexed (NO) Urine Glucose (NEGATIVE) mg/dL Influenza Type A Ag (NEGATIVE) Influenza Type B Ag (NEGATIVE) SARS-CoV-2 (PCR) (NEGATIVE) - Progress Progress: unchanged Air Movement: good Blood Culture(s) Obtained: Yes Antibiotics given: No - Departure Departure Disposition: Observation Clinical Impression: COPD exacerbation, Urinary tract infection Condition: Fair Critical Care Time: No Referrals: MARZENA ATWOOD MD [Primary Care Provider] - Instructions: Chronic Obstructive Pulmonary Disease
[2020-12-28 13:50] LABS: ALBUMIN 4.3 g/dL (3.5-5.0); ALKALINE PHOSPHATASE 74 U/L (38-126); AMYLASE 52 U/L (30-110); ANION GAP 14.3 MEQ/L (5-15); BLOOD UREA NITROGEN 17 mg/dL (7-17); CHLORIDE 102 mmol/L (98-107); Calcium 9.4 mg/dL (8.4-10.2); Carbon Dioxide 27 mmol/L (22-30); Creatinine 1 0.53 mg/dL (0.52-1.04); EST GLOMERULAR FILTRATION RATE > 60.0 ML/MIN; Glucose 273 mg/dL (74-106); LIPASE 87 U/L (23-300); MAGNESIUM 1.4 mg/dL (1.6-2.3); NT PRO BNP 649 pg/mL (0-900); Potassium 4.5 mmol/L (3.5-5.1); SGOT/AST 20 U/L (14-36); SGPT/ALT 18 U/L (0-35); SODIUM 138 mmol/L (137-145); Total Protein 7.6 g/dL (6.3-8.2)
[2020-12-28 14:09] LABS: Appearance SLIGHTLY CLOUDY (CLEAR); Bacteria MODERATE /HPF (NEGATIVE); Bilirubin NEGATIVE (NEGATIVE); Blood NEGATIVE Ery/ul (0-5); Epithelial Cells RARE /HPF (FEW); Glucose 50 mg/dL (NEGATIVE); Ketones NEGATIVE (NEGATIVE); Leukocyte Esterase MODERATE (NEGATIVE); Mucus SLIGHT /HPF (NEGATIVE); Nitrite POSITIVE (NEGATIVE); Protein,Urine Dip 30 (Negative); RBC 0-2 /HPF (0-2); Specific Gravity 1.011 (1.005-1.025); Urobilinogen NEGATIVE mg/dL (0-1); WBC 51-100 /HPF (0-5)
[2020-12-28 14:10] LABS: INFLUENZA A NEGATIVE (NEGATIVE); INFLUENZA B NEGATIVE (NEGATIVE)
[2020-12-28 14:39] LABS: BAND 4 % (0.0-2.0); Eosinophil 2 % (0.00-3.0); Lymphocytes 19 % (24-44); Monocyte 3 % (0.0-12.0); Neutrophils 72 % (36.0-66.0); Nucleated Red Blood Cell 1 %; Platelet Estimate NORMAL (NORMAL); Total Cells Counted 100
[2020-12-28] MEDS: solu-MEDROL 125 MG IV SCH ×2 (17:58→22:59)
--- NOTE | 2020-12-28 17:59 | XRAY ---
Indication: Short of breath. Comparison: January 02, 2020. Portable chest again demonstrates cardiomegaly and a few right lung calcified granulomas. Minimal bibasilar infiltrates/atelectasis, less than before. Bony thorax intact.
--- NOTE | 2020-12-28 18:04 | XRAY ---
Indication: Short of breath. Elevated d-dimer. Multiple contiguous axial images obtained through the chest using 100 cc Isovue 370 contrast and PE protocol. Comparison: December 25, 2019. There is good opacification of the pulmonary arteries to include the lobar and segmental branches. Nonoccluding pulmonary emboli seen throughout the right upper, right middle, and right lower lobes. Heart remains enlarged. Aorta is normal in course and caliber without aneurysm/dissection. Stable left hilar calcified nodes. No pathologic mediastinal/hilar lymphadenopathy. Lungs again demonstrates left lower lobe subsegmental atelectasis/scarring and small right lower lobe calcified granulomas. No filtrates or effusion. Bony thorax intact again with minimal degenerative changes throughout the spine. Limited upper abdomen again demonstrate splenomegaly today measuring 17.1 cm, a few hepatic/splenic calcified granulomas, and cholecystectomy. Impression: 1. Extensive nonoccluding pulmonary emboli throughout the right lung. 2. Again incidental cardiomegaly, splenomegaly, chronic bony findings, and old granulomatous disease. Comment: Preliminary interpretation was made by [facility]. No critical discrepancy.
[2020-12-28] MEDS ORDERED: NORCO 5/325 MG PO PRN (19:02)
[2020-12-28] MEDS ORDERED: DUONEB 0.5-3 MG/3 ml Neb IH ONE (20:15)
[2020-12-28] MEDS: PROVENTIL 2.5 MG/3 ML NEB IH SCH (20:34)
[2020-12-28] MEDS: NEURONTIN 300 MG PO SCH (22:50)
[2020-12-28] MEDS: Pepcid 20 MG PO SCH (22:51)
[2020-12-28] MEDS: Coreg 6.25 MG PO SCH (22:51)
[2020-12-28] MEDS: Klor Con 10 MEQ PO SCH (22:51)
[2020-12-28] MEDS: ENOXAPARIN SODIUM SQ SCH (22:51)
[2020-12-28] MEDS: HUMALOG SQ PRN (22:52)
[2020-12-29] MEDS: PROVENTIL 2.5 MG/3 ML NEB IH SCH ×4 (00:26→18:51)
[2020-12-29 01:23] LABS: Hematocrit 46.8 % (35-47); Hemoglobin 14.3 gm/dl (12.0-16.0); Mean Cell Volume 84.9 fl (78-100); Mean Corpuscular Hgb Concent. 30.6 g/dl (32-36); Mean Platelet Volume 10.7 fl (7.5-11.0); Platelet Count 166 K/mm3 (150-450); Red Blood Count 5.51 M/mm3 (4.1-5.4); Red Cell Distribution Width 19.8 % (11.5-14.0); White Blood Count 5.6 K/mm3 (4.0-10.5)
[2020-12-29 01:47] LABS: BLOOD UREA NITROGEN 14 mg/dL (7-17); CHLORIDE 101 mmol/L (98-107); Calcium 9.2 mg/dL (8.4-10.2); Carbon Dioxide 24 mmol/L (22-30); Creatinine 1 0.41 mg/dL (0.52-1.04); EST GLOMERULAR FILTRATION RATE > 60.0 ML/MIN; Glucose 332 mg/dL (74-106); MAGNESIUM 1.7 mg/dL (1.6-2.3); Potassium 4.1 mmol/L (3.5-5.1); SODIUM 137 mmol/L (137-145)
[2020-12-29] MEDS ORDERED: solu-MEDROL 125 MG ONE (06:22)
[2020-12-29] MEDS: solu-MEDROL 125 MG IV SCH ×3 (06:24→17:37)
[2020-12-29] MEDS ORDERED: NORCO 5/325 MG PO PRN (07:30)
[2020-12-29] MEDS ORDERED: INSULIN ASPART 25 UNIT SQ SCH (08:00)
[2020-12-29] MEDS ORDERED: HUMALOG MIX 75-25 VIAL SQ SCH (08:00)
--- NOTE | 2020-12-29 08:19 | PCM.HP ---
History of Present Illness - Chief Complaint Chief Complaint: COPD exacerbation History of Present Illness: is a 60 year old female who presented to the ER with acute worsening of shortness of breath, she felt like she was wheezing ,has some cough but no significant sputum production. no fever, longstanding copd with 3L oxygen at home and cpap at night. she is improved after admission and treatment overnight but not quite at her baseline today. - Review of Systems Constitutional: No Fever, No Chills Ears, Nose, & Throat: No Symptoms Respiratory: Cough, Short Of Breath Cardiac: No Chest Pain, No Edema, No Syncope Abdominal/Gastrointestinal: No Abdominal Pain, No Nausea, No Vomiting, No Diarrhea Genitourinary Symptoms: No Dysuria Skin: No Rash All Other Systems: Reviewed and Negative Medications & Allergies Home Medications: Home Medication List Carvedilol 6.25 mg [Coreg 6.25 MG] 6.25 mg PO BID 01/14/20 [History Confirmed 12/28/20] Famotidine 20 mg [Pepcid 20 MG] 20 mg PO BID 01/14/20 [History Confirmed 12/28/20] Furosemide 40 mg [Lasix 40 MG] 40 mg PO DAILY 01/14/20 [History Confirmed 12/28/20] Gabapentin 600 mg PO TID 01/14/20 [History Confirmed 12/28/20] Insulin Aspart [Novolog] 25 unit SQ TIDWM 01/14/20 [History Confirmed 12/28/20] Insulin Degludec [Tresiba Flextouch U-200] 80 unit SQ BID 01/14/20 [History Confirmed 12/28/20] Metformin HCl 500 mg [Glucophage 500 MG] 1,000 mg PO BIDWM 01/14/20 [History Confirmed 12/28/20] Paroxetine HCl 20 mg [Paxil 20 MG] 20 mg PO DAILY 01/14/20 [History Confirmed 12/28/20] Potassium Chloride 10 Meq Tab* [Klor Con 10 MEQ] 20 meq PO BID 01/14/20 [History Confirmed 12/28/20] Pravastatin Sodium 20 mg PO DAILY 01/14/20 [History Confirmed 12/28/20] Hydrocodone/APAP 5-325 Tab^^^ [[place] 5-325 Tablet^^^] 1 tab PO Q6HPRN PRN #60 tablet 01/16/20 [Rx Confirmed 12/28/20] Aspirin/Caffeine [Agustín Back & Body Caplet] 2 tab PO HS 12/28/20 [History Confirmed 12/28/20] Exenatide Microspheres [Bydureon Bcise] 2 mg SQ FR 12/28/20 [History Confirmed 12/28/20] Umeclidinium [place] [Incruse Ellipta] 62.5 mcg IH QAM 12/28/20 [History Confirmed 12/28/20] Allergies/Adverse Reactions: Allergies Allergy/AdvReac Type Severity Reaction Status Date / Time No Known Drug Allergies Allergy Verified 12/28/20 12:52 - Past Medical History Past Medical History: Yes Neurological History: No Pertinent History ENT History: No Pertinent History Cardiac History: High Cholesterol, Hypertension Respiratory History: COPD, Pulmonary Embolism, Sleep Apnea Endocrine Medical History: Diabetes Type II Musculoskelatal History: No Pertinent History GI Medical History: Hemorrhoids History: No Pertinent History Pyscho-Social History: Depression, Anxiety Reproductive Disorders: No Pertinent History Comment: L Below knee amputation r/t diabetes - Female History Are you now?: No - Past Surgical History Past Surgical History: Yes Neuro Surgical History: No Pertinent History Cardiac History: No Pertinent History Respiratory Surgery: No Pertinent History GI Surgical History: Cholecystectomy Genitourinary Surgical Hx: No Pertinent History Musculskeletal Surgical Hx: Amputation, Prosthesis Female Surgical History: Hysterectomy, Tubal Ligation Other Surgical History: below knee amputation left leg / r/t diabetes - Social History Smoking Status: Former smoker How long have you smoked: 30 years Exposure to second hand smoke: Yes Alcohol: None Drug Use: none - Physical Exam Vital Signs: Vital Signs - 24 hr Temp Pulse Resp BP Pulse Ox 12/29/20 08:00 97.6 F 63 18 123/64 93 L 12/29/20 07:03 63 18 93 L 12/29/20 04:00 97.8 F 65 21 128/73 95 12/29/20 00:00 22 12/28/20 23:29 98.2 F 66 22 122/62 92 L 12/28/20 20:36 67 22 92 L 12/28/20 20:00 98.1 F 70 24 142/79 93 L 12/28/20 18:56 98.1 F 70 24 142/79 93 L 12/28/20 16:54 66 20 92 L 12/28/20 16:15 67 18 92 L 12/28/20 15:38 96 12/28/20 13:54 64 138/74 96 12/28/20 13:53 64 138/74 96 12/28/20 12:40 97.2 F 68 22 96 General Appearance: no apparent distress, alert Neurologic Exam: alert, oriented x 3, cooperative Respiratory Exam: prolonged expirations, wheezing Cardiovascular Exam: regular rate/rhythm, normal heart sounds, normal peripheral pulses Gastrointestinal/Abdomen Exam: soft, normal bowel sounds, No tenderness, No mass Extremity Exam: normal inspection, normal range of motion, pelvis stable, other (BKA) Skin Exam: normal color, warm, dry, No rash Results - Labs Lab/Micro Results: Lab Results-Last 24 Hours 12/28/20 12/28/20 12/28/20 Range/Units 12:58 13:06 13:06 WBC 5.9 (4.0-10.5) K/mm3 RBC 5.56 H (4.1-5.4) M/mm3 Hgb 14.5 (12.0-16.0) gm/dl Hct 47.2 H (35-47) % MCV 84.9 (78-100) fl MCH 26.1 (26-32) pg MCHC 30.7 L (32-36) g/dl RDW 20.1 H (11.5-14.0) % Plt Count 251 (150-450) K/mm3 MPV 10.4 (7.5-11.0) fl Segmented Neutrophils 72 H (36.0-66.0) % Band Neutrophils 4 H (0.0-2.0) % Lymphocytes (Manual) 19 L (24-44) % Monocytes (Manual) 3 (0.0-12.0) % Eosinophils (Manual) 2 (0.00-3.0) % Nucleated RBCs 1 % Platelet Estimate NORMAL (NORMAL) RBC Morphology NORMAL PT (9.4-12.5) SECONDS INR (0.8-3.0) D-Dimer (215-500) ng/mL Sodium 138 (137-145) mmol/L Potassium 4.5 (3.5-5.1) mmol/L Chloride 102 (98-107) mmol/L Carbon Dioxide 27 (22-30) mmol/L Anion Gap 14.3 (5-15) MEQ/L BUN 17 (7-17) mg/dL Creatinine 0.53 (0.52-1.04) mg/dL Estimated GFR > 60.0 ML/MIN Glucose 273 H (74-106) mg/dL POC Glucometer (74 to 106) mg/dL Lactic Acid 1.5 (0.4-2.0) Calcium 9.4 (8.4-10.2) mg/dL Magnesium 1.4 L (1.6-2.3) mg/dL Total Bilirubin 0.80 (0.2-1.3) mg/dL AST 20 (14-36) U/L ALT 18 (0-35) U/L Alkaline Phosphatase 74 (38-126) U/L Troponin I (0.000-0.034) ng/mL NT-Pro-B Natriuret Pep 649 (0-900) pg/mL Serum Total Protein 7.6 (6.3-8.2) g/dL Albumin 4.3 (3.5-5.0) g/dL Prealbumin (17.6-36.0) mg/dL Amylase 52 (30-110) U/L Lipase 87 (23-300) U/L Urine Color (YELLOW) Urine Appearance (CLEAR) Urine pH (5-6) Ur Specific [place] (1.005-1.025) Urine Protein (Negative) Urine Ketones (NEGATIVE) Urine Blood (0-5) Darrin/ul Urine Nitrite (NEGATIVE) Urine Bilirubin (NEGATIVE) Urine Urobilinogen (0-1) mg/dL Ur Leukocyte Esterase (NEGATIVE) Urine WBC (Auto) (0-5) /HPF Urine RBC (Auto) (0-2) /HPF U Epithel Cells (Auto) (FEW) /HPF Urine Bacteria (Auto) (NEGATIVE) /HPF Urine Mucus (Auto) (NEGATIVE) /HPF Urine Culture Reflexed (NO) Urine Glucose (NEGATIVE) mg/dL Influenza Type A Ag (NEGATIVE) Influenza Type B Ag (NEGATIVE) SARS-CoV-2 (PCR) (NEGATIVE) 12/28/20 12/28/20 12/28/20 Range/Units 13:06 13:06 13:06 WBC (4.0-10.5) K/mm3 RBC (4.1-5.4) M/mm3 Hgb (12.0-16.0) gm/dl Hct (35-47) % MCV (78-100) fl MCH (26-32) pg MCHC (32-36) g/dl RDW (11.5-14.0) % Plt Count (150-450) K/mm3 MPV (7.5-11.0) fl Segmented Neutrophils (36.0-66.0) % Band Neutrophils (0.0-2.0) % Lymphocytes (Manual) (24-44) % Monocytes (Manual) (0.0-12.0) % Eosinophils (Manual) (0.00-3.0) % Nucleated RBCs % Platelet Estimate (NORMAL) RBC Morphology PT 13.6 H (9.4-12.5) SECONDS INR 1.15 (0.8-3.0) D-Dimer 1196 H* (215-500) ng/mL Sodium (137-145) mmol/L Potassium (3.5-5.1) mmol/L Chloride (98-107) mmol/L Carbon Dioxide (22-30) mmol/L Anion Gap (5-15) MEQ/L BUN (7-17) mg/dL Creatinine (0.52-1.04) mg/dL Estimated GFR ML/MIN Glucose (74-106) mg/dL POC Glucometer (74 to 106) mg/dL Lactic Acid (0.4-2.0) Calcium (8.4-10.2) mg/dL Magnesium (1.6-2.3) mg/dL Total Bilirubin (0.2-1.3) mg/dL AST (14-36) U/L ALT (0-35) U/L Alkaline Phosphatase (38-126) U/L Troponin I (0.000-0.034) ng/mL NT-Pro-B Natriuret Pep (0-900) pg/mL Serum Total Protein (6.3-8.2) g/dL Albumin (3.5-5.0) g/dL Prealbumin (17.6-36.0) mg/dL Amylase (30-110) U/L Lipase (23-300) U/L Urine Color YELLOW (YELLOW) Urine Appearance SLIGHTLY CLOUDY (CLEAR) Urine pH 6.0 (5-6) Ur Specific [place] 1.011 (1.005-1.025) Urine Protein 30 (Negative) Urine Ketones NEGATIVE (NEGATIVE) Urine Blood NEGATIVE (0-5) Darrin/ul Urine Nitrite POSITIVE (NEGATIVE) Urine Bilirubin NEGATIVE (NEGATIVE) Urine Urobilinogen NEGATIVE (0-1) mg/dL Ur Leukocyte Esterase MODERATE (NEGATIVE) Urine WBC (Auto) 51-100 (0-5) /HPF Urine RBC (Auto) 0-2 (0-2) /HPF U Epithel Cells (Auto) RARE (FEW) /HPF Urine Bacteria (Auto) MODERATE (NEGATIVE) /HPF Urine Mucus (Auto) SLIGHT (NEGATIVE) /HPF Urine Culture Reflexed YES (NO) Urine Glucose 50 (NEGATIVE) mg/dL Influenza Type A Ag NEGATIVE (NEGATIVE) Influenza Type B Ag NEGATIVE (NEGATIVE) SARS-CoV-2 (PCR) (NEGATIVE) 12/28/20 12/28/20 12/28/20 Range/Units 13:06 13:06 15:40 WBC (4.0-10.5) K/mm3 RBC (4.1-5.4) M/mm3 Hgb (12.0-16.0) gm/dl Hct (35-47) % MCV (78-100) fl MCH (26-32) pg MCHC (32-36) g/dl RDW (11.5-14.0) % Plt Count (150-450) K/mm3 MPV (7.5-11.0) fl Segmented Neutrophils (36.0-66.0) % Band Neutrophils (0.0-2.0) % Lymphocytes (Manual) (24-44) % Monocytes (Manual) (0.0-12.0) % Eosinophils (Manual) (0.00-3.0) % Nucleated RBCs % Platelet Estimate (NORMAL) RBC Morphology PT (9.4-12.5) SECONDS INR (0.8-3.0) D-Dimer (215-500) ng/mL Sodium (137-145) mmol/L Potassium (3.5-5.1) mmol/L Chloride (98-107) mmol/L Carbon Dioxide (22-30) mmol/L Anion Gap (5-15) MEQ/L BUN (7-17) mg/dL Creatinine (0.52-1.04) mg/dL Estimated GFR ML/MIN Glucose (74-106) mg/dL POC Glucometer (74 to 106) mg/dL Lactic Acid (0.4-2.0) Calcium (8.4-10.2) mg/dL Magnesium (1.6-2.3) mg/dL Total Bilirubin (0.2-1.3) mg/dL AST (14-36) U/L ALT (0-35) U/L Alkaline Phosphatase (38-126) U/L Troponin I < 0.012 < 0.012 (0.000-0.034) ng/mL NT-Pro-B Natriuret Pep (0-900) pg/mL Serum Total Protein (6.3-8.2) g/dL Albumin (3.5-5.0) g/dL Prealbumin (17.6-36.0) mg/dL Amylase (30-110) U/L Lipase (23-300) U/L Urine Color (YELLOW) Urine Appearance (CLEAR) Urine pH (5-6) Ur Specific [place] (1.005-1.025) Urine Protein (Negative) Urine Ketones (NEGATIVE) Urine Blood (0-5) Darrin/ul Urine Nitrite (NEGATIVE) Urine Bilirubin (NEGATIVE) Urine Urobilinogen (0-1) mg/dL Ur Leukocyte Esterase (NEGATIVE) Urine WBC (Auto) (0-5) /HPF Urine RBC (Auto) (0-2) /HPF U Epithel Cells (Auto) (FEW) /HPF Urine Bacteria (Auto) (NEGATIVE) /HPF Urine Mucus (Auto) (NEGATIVE) /HPF Urine Culture Reflexed (NO) Urine Glucose (NEGATIVE) mg/dL Influenza Type A Ag (NEGATIVE) Influenza Type B Ag (NEGATIVE) SARS-CoV-2 (PCR) NEGATIVE (NEGATIVE) 12/28/20 12/28/20 12/28/20 Range/Units 15:51 19:15 21:03 WBC (4.0-10.5) K/mm3 RBC (4.1-5.4) M/mm3 Hgb (12.0-16.0) gm/dl Hct (35-47) % MCV (78-100) fl MCH (26-32) pg MCHC (32-36) g/dl RDW (11.5-14.0) % Plt Count (150-450) K/mm3 MPV (7.5-11.0) fl Segmented Neutrophils (36.0-66.0) % Band Neutrophils (0.0-2.0) % Lymphocytes (Manual) (24-44) % Monocytes (Manual) (0.0-12.0) % Eosinophils (Manual) (0.00-3.0) % Nucleated RBCs % Platelet Estimate (NORMAL) RBC Morphology PT (9.4-12.5) SECONDS INR (0.8-3.0) D-Dimer (215-500) ng/mL Sodium (137-145) mmol/L Potassium (3.5-5.1) mmol/L Chloride (98-107) mmol/L Carbon Dioxide (22-30) mmol/L Anion Gap (5-15) MEQ/L BUN (7-17) mg/dL Creatinine (0.52-1.04) mg/dL Estimated GFR ML/MIN Glucose (74-106) mg/dL POC Glucometer 265 H 379 H (74 to 106) mg/dL Lactic Acid (0.4-2.0) Calcium (8.4-10.2) mg/dL Magnesium (1.6-2.3) mg/dL Total Bilirubin (0.2-1.3) mg/dL AST (14-36) U/L ALT (0-35) U/L Alkaline Phosphatase (38-126) U/L Troponin I < 0.012 (0.000-0.034) ng/mL NT-Pro-B Natriuret Pep (0-900) pg/mL Serum Total Protein (6.3-8.2) g/dL Albumin (3.5-5.0) g/dL Prealbumin (17.6-36.0) mg/dL Amylase (30-110) U/L Lipase (23-300) U/L Urine Color (YELLOW) Urine Appearance (CLEAR) Urine pH (5-6) Ur Specific [place] (1.005-1.025) Urine Protein (Negative) Urine Ketones (NEGATIVE) Urine Blood (0-5) Darrin/ul Urine Nitrite (NEGATIVE) Urine Bilirubin (NEGATIVE) Urine Urobilinogen (0-1) mg/dL Ur Leukocyte Esterase (NEGATIVE) Urine WBC (Auto) (0-5) /HPF Urine RBC (Auto) (0-2) /HPF U Epithel Cells (Auto) (FEW) /HPF Urine Bacteria (Auto) (NEGATIVE) /HPF Urine Mucus (Auto) (NEGATIVE) /HPF Urine Culture Reflexed (NO) Urine Glucose (NEGATIVE) mg/dL Influenza Type A Ag (NEGATIVE) Influenza Type B Ag (NEGATIVE) SARS-CoV-2 (PCR) (NEGATIVE) 12/28/20 12/29/20 12/29/20 Range/Units 22:49 01:15 01:15 WBC 5.6 (4.0-10.5) K/mm3 RBC 5.51 H (4.1-5.4) M/mm3 Hgb 14.3 (12.0-16.0) gm/dl Hct 46.8 (35-47) % MCV 84.9 (78-100) fl MCH 26.0 (26-32) pg MCHC 30.6 L (32-36) g/dl RDW 19.8 H (11.5-14.0) % Plt Count 166 (150-450) K/mm3 MPV 10.7 (7.5-11.0) fl Segmented Neutrophils (36.0-66.0) % Band Neutrophils (0.0-2.0) % Lymphocytes (Manual) (24-44) % Monocytes (Manual) (0.0-12.0) % Eosinophils (Manual) (0.00-3.0) % Nucleated RBCs % Platelet Estimate (NORMAL) RBC Morphology PT (9.4-12.5) SECONDS INR (0.8-3.0) D-Dimer (215-500) ng/mL Sodium (137-145) mmol/L Potassium (3.5-5.1) mmol/L Chloride (98-107) mmol/L Carbon Dioxide (22-30) mmol/L Anion Gap (5-15) MEQ/L BUN (7-17) mg/dL Creatinine (0.52-1.04) mg/dL Estimated GFR ML/MIN Glucose (74-106) mg/dL POC Glucometer (74 to 106) mg/dL Lactic Acid (0.4-2.0) Calcium (8.4-10.2) mg/dL Magnesium (1.6-2.3) mg/dL Total Bilirubin (0.2-1.3) mg/dL AST (14-36) U/L ALT (0-35) U/L Alkaline Phosphatase (38-126) U/L Troponin I < 0.012 < 0.012 (0.000-0.034) ng/mL NT-Pro-B Natriuret Pep (0-900) pg/mL Serum Total Protein (6.3-8.2) g/dL Albumin (3.5-5.0) g/dL Prealbumin (17.6-36.0) mg/dL Amylase (30-110) U/L Lipase (23-300) U/L Urine Color (YELLOW) Urine Appearance (CLEAR) Urine pH (5-6) Ur Specific [place] (1.005-1.025) Urine Protein (Negative) Urine Ketones (NEGATIVE) Urine Blood (0-5) Darrin/ul Urine Nitrite (NEGATIVE) Urine Bilirubin (NEGATIVE) Urine Urobilinogen (0-1) mg/dL Ur Leukocyte Esterase (NEGATIVE) Urine WBC (Auto) (0-5) /HPF Urine RBC (Auto) (0-2) /HPF U Epithel Cells (Auto) (FEW) /HPF Urine Bacteria (Auto) (NEGATIVE) /HPF Urine Mucus (Auto) (NEGATIVE) /HPF Urine Culture Reflexed (NO) Urine Glucose (NEGATIVE) mg/dL Influenza Type A Ag (NEGATIVE) Influenza Type B Ag (NEGATIVE) SARS-CoV-2 (PCR) (NEGATIVE) 12/29/20 12/29/20 Range/Units 01:15 07:02 WBC (4.0-10.5) K/mm3 RBC (4.1-5.4) M/mm3 Hgb (12.0-16.0) gm/dl Hct (35-47) % MCV (78-100) fl MCH (26-32) pg MCHC (32-36) g/dl RDW (11.5-14.0) % Plt Count (150-450) K/mm3 MPV (7.5-11.0) fl Segmented Neutrophils (36.0-66.0) % Band Neutrophils (0.0-2.0) % Lymphocytes (Manual) (24-44) % Monocytes (Manual) (0.0-12.0) % Eosinophils (Manual) (0.00-3.0) % Nucleated RBCs % Platelet Estimate (NORMAL) RBC Morphology PT (9.4-12.5) SECONDS INR (0.8-3.0) D-Dimer (215-500) ng/mL Sodium 137 (137-145) mmol/L Potassium 4.1 (3.5-5.1) mmol/L Chloride 101 (98-107) mmol/L Carbon Dioxide 24 (22-30) mmol/L Anion Gap 16.0 H (5-15) MEQ/L BUN 14 (7-17) mg/dL Creatinine 0.41 L (0.52-1.04) mg/dL Estimated GFR > 60.0 ML/MIN Glucose 332 H (74-106) mg/dL POC Glucometer 314 H (74 to 106) mg/dL Lactic Acid (0.4-2.0) Calcium 9.2 (8.4-10.2) mg/dL Magnesium 1.7 (1.6-2.3) mg/dL Total Bilirubin (0.2-1.3) mg/dL AST (14-36) U/L ALT (0-35) U/L Alkaline Phosphatase (38-126) U/L Troponin I (0.000-0.034) ng/mL NT-Pro-B Natriuret Pep (0-900) pg/mL Serum Total Protein (6.3-8.2) g/dL Albumin (3.5-5.0) g/dL Prealbumin 17.30 L (17.6-36.0) mg/dL Amylase (30-110) U/L Lipase (23-300) U/L Urine Color (YELLOW) Urine Appearance (CLEAR) Urine pH (5-6) Ur Specific [place] (1.005-1.025) Urine Protein (Negative) Urine Ketones (NEGATIVE) Urine Blood (0-5) Darrin/ul Urine Nitrite (NEGATIVE) Urine Bilirubin (NEGATIVE) Urine Urobilinogen (0-1) mg/dL Ur Leukocyte Esterase (NEGATIVE) Urine WBC (Auto) (0-5) /HPF Urine RBC (Auto) (0-2) /HPF U Epithel Cells (Auto) (FEW) /HPF Urine Bacteria (Auto) (NEGATIVE) /HPF Urine Mucus (Auto) (NEGATIVE) /HPF Urine Culture Reflexed (NO) Urine Glucose (NEGATIVE) mg/dL Influenza Type A Ag (NEGATIVE) Influenza Type B Ag (NEGATIVE) SARS-CoV-2 (PCR) (NEGATIVE) Microbiology 12/28/20 13:06 Urine Culture - Preliminary Clean Catch Midstream GRAM NEGATIVE ID AND SENSITIVITY PENDING Accuchecks Date 12/29/20 - Radiology Impressions Radiology Exams & Impressions: Radiology Procedures Category Date Time Status CHEST 1 VIEW (PORTABLE) Stat Exams 12/28/20 13:36 Completed CHEST WITH CONTRAST [CT] Stat Exams 12/28/20 14:41 Completed - Other Procedures and Tests Respiratory Therapy 12/28/20 15:39 Oxygen Nasal Cannula 3 lpm 12/28/20 16:53 Respiratory Therapy Assessment DAILY 12/28/20 22:28 BiPap/CPAP ROUTINE Assessment/Plan (1) COPD exacerbation Current Visit: Yes Status: Acute Assessment & Plan: continue nebs, levaquin and solu medrol. likely home tomorrow Code(s): J44.1 - CHRONIC OBSTRUCTIVE PULMONARY DISEASE W (ACUTE) EXACERBATION (2) Chronic hypoxemic respiratory failure Current Visit: No Status: Chronic (3) Diabetes mellitus with hyperglycemia Current Visit: No Status: Chronic Code(s): E11.65 - TYPE 2 DIABETES MELLITUS WITH HYPERGLYCEMIA
[2020-12-29] MEDS: HUMALOG SQ SCH ×3 (08:21→17:38)
[2020-12-29] MEDS: LEVOFLOXACIN 750MG/150ML D5W 750 MG/150 ML BAG IV SCH (08:21)
[2020-12-29] MEDS: HUMALOG SQ PRN ×4 (08:22→22:09)
[2020-12-29] MEDS: Lantus Insulin SQ SCH ×2 (08:26→22:09)
[2020-12-29] MEDS ORDERED: PROVENTIL 2.5 MG/3 ML NEB IH SCH (10:00)
[2020-12-29] MEDS ORDERED: INSULIN DEGLUDEC 80 UNIT SQ SCH (10:00)
[2020-12-29] MEDS ORDERED: NON-FORMULARY ITEM (Pravastatin Sodium [Pravastatin Sodium] 20 MG) PO SCH (10:00)
[2020-12-29] MEDS: Klor Con 10 MEQ PO SCH ×2 (10:05→22:08)
[2020-12-29] MEDS: NEURONTIN 300 MG PO SCH ×3 (10:05→22:08)
[2020-12-29] MEDS: Sodium Chloride 0.9% 1000 ML 1,000 ML IV SCH (10:05)
[2020-12-29] MEDS: Pepcid 20 MG PO SCH ×2 (10:06→22:08)
[2020-12-29] MEDS: ENOXAPARIN SODIUM SQ SCH ×2 (10:06→22:08)
[2020-12-29] MEDS: Coreg 6.25 MG PO SCH ×2 (10:06→22:08)
[2020-12-29] MEDS: Lasix 40 MG PO SCH (10:08)
[2020-12-29] MEDS: Paxil 20 MG PO SCH (10:08)
[2020-12-29] MEDS: HOLD METFORMIN PRODUCTS FOR 48 HOURS MC SCH (10:14)
[2020-12-29] MEDS ORDERED: PROVENTIL 2.5 MG/3 ML NEB IH ONE (10:25)
[2020-12-29] MEDS ORDERED: ZOCOR 20MG PO SCH (22:00)
[2020-12-30] MEDS: solu-MEDROL 125 MG IV SCH ×3 (00:13→12:33)
[2020-12-30] MEDS: Sodium Chloride 0.9% 1000 ML 1,000 ML IV SCH (05:22)
[2020-12-30] MEDS: PROVENTIL 2.5 MG/3 ML NEB IH SCH ×2 (06:55→10:39)
[2020-12-30] MEDS: HUMALOG SQ SCH ×2 (07:39→12:34)
[2020-12-30] MEDS: HUMALOG SQ PRN ×2 (07:40→12:35)
[2020-12-30] MEDS: LEVOFLOXACIN 750MG/150ML D5W 750 MG/150 ML BAG IV SCH (09:46)
[2020-12-30] MEDS: NEURONTIN 300 MG PO SCH ×2 (09:47→14:33)
[2020-12-30] MEDS: Klor Con 10 MEQ PO SCH (09:47)
[2020-12-30] MEDS: Lasix 40 MG PO SCH (09:47)
[2020-12-30] MEDS: Paxil 20 MG PO SCH (09:47)
[2020-12-30] MEDS: Pepcid 20 MG PO SCH (09:47)
[2020-12-30] MEDS: Coreg 6.25 MG PO SCH (09:47)
[2020-12-30] MEDS: ENOXAPARIN SODIUM SQ SCH (09:48)
[2020-12-30] MEDS: HOLD METFORMIN PRODUCTS FOR 48 HOURS MC SCH (09:48)
[2020-12-30] MEDS: Lantus Insulin SQ SCH (09:48)
--- NOTE | 2020-12-30 09:54 | PCM.DS ---
Discharge Summary Date of Admission: 12/28/20 17:20 Admitting Physician: TATA TORRES Primary Care Provider: MARZENA ATWOOD Allergies Allergies No Known Drug Allergies Allergy (Verified 12/28/20 12:52) Hospital Summary - Hospital Course Hospital Course: patient admitted with cough, wheezing and dyspnea, found to have nonoccluding PE on right. treated for copd exacerbation, doing well and at her baseline - Vitals & Intake/Output Vital Signs: Vital Signs Temperature 97.7 F 12/30/20 07:30 Pulse Rate 69 12/30/20 07:30 Respiratory Rate 20 12/30/20 08:00 Blood Pressure 166/78 12/30/20 07:30 O2 Sat by Pulse Oximetry 98 12/30/20 07:30 Intake & Output: Intake & Output 12/27/20 12/28/20 12/29/20 12/30/20 11:59 11:59 11:59 11:59 Intake Total 1435 2780 Output Total 3575 2400 Balance -2140 380 Weight 147.5 kg 149 kg - Lab Result Diagrams: 12/29/20 01:15 12/29/20 01:15 Lab Results-Last 24 Hrs: Lab Results-Last 24 Hours 12/29/20 12/29/20 12/29/20 Range/Units 11:52 16:08 20:58 POC Glucometer 409 H 390 H 447 H (74 to 106) mg/dL 12/30/20 Range/Units 06:31 POC Glucometer 402 H (74 to 106) mg/dL Micro Results-Entire Visit: Microbiology 12/28/20 13:22 Blood Culture - Preliminary Blood NO GROWTH TO DATE 12/28/20 13:15 Blood Culture - Preliminary Blood NO GROWTH TO DATE 12/28/20 13:06 Urine Culture - Final Clean Catch Midstream Klebsiella Oxytoca Accuchecks Date 12/29/20 Date 12/29/20 Date 12/29/20 Time 11:30 - Radiology Exams Ordered Rad Exams-Entire Visit: Radiology Procedures Category Date Time Status CHEST 1 VIEW (PORTABLE) Stat Exams 12/28/20 13:36 Completed CHEST WITH CONTRAST [CT] Stat Exams 12/28/20 14:41 Completed - Procedures and Test Procedures and Tests throughout Hospitalization: Therapy Orders & Screens 12/28/20 12:44 Respiratory Therapy Consult ROUTINE Comment: Reason For Exam: 12/28/20 15:39 Oxygen Nasal Cannula 3 lpm Comment: 12/28/20 16:53 Respiratory Therapy Assessment DAILY Comment: Diagnosis: COPD exacerbation 12/28/20 19:54 OT Screen per Nursing Assess ONCE Comment: Protocol Order Physician Instructions: Greater than 3 points order OT Admission Screening Reason For Exam: Triggered on Admission Diagnosis: COPD exacerbation Open Wound/Cellutlitis/Pressure Ulcers: No Acute Fx/ORIF/Change in wt bearing status: No Severe MUSCULOSKELETAL pain: No ADL Dysfunction: Yes Acute CVA w/Hemiparesis/Hemiplegia: No Decreased Functional Mobility/Strength: Yes Sprain/Strain: No Acute Post-op Mobility Dysfunction: No Total Points: 4 PT Screen per Nursing Assess ONCE Comment: Protocol Order Physician Instructions: Greater than 3 points order PT Admission Screenin Reason For Exam: Triggered on Admission Diagnosis: COPD exacerbation Open Wound/Cellutlitis/Pressure Ulcers: No Acute Fx/ORIF/Change in wt bearing status: No Severe MUSCULOSKELETAL pain: No ADL Dysfunction: Yes Acute CVA w/Hemiparesis/Hemiplegia: No Decreased Functional Mobility/Strength: Yes Sprain/Strain: No Acute Post-op Mobility Dysfunction: No Total Points: 4 RT Screen per Nursing Assess ONCE Comment: Protocol Order Physician Instructions: Greater than 3 points order RT Admission Screen Reason For Exam: Triggered on Admission Diagnosis: COPD exacerbation Diagnosis: COPD exacerbation Pneumonia: No Home O2: Yes Asthma: No CHF: No Home CPAP/BIPAP: Yes Home Nebs/MDI: Yes Total Points: 15 12/28/20 22:28 BiPap/CPAP ROUTINE Comment: Diagnosis: COPD exacerbation Discharge Exam General Appearance: no apparent distress, alert Neurologic Exam: alert, oriented x 3 Respiratory Exam: normal breath sounds, lungs clear, No respiratory distress Cardiovascular Exam: regular rate/rhythm, normal heart sounds Gastrointestinal/Abdomen Exam: soft, No tenderness, No mass Final Diagnosis/Problem List - Final Discharge Diagnosis/Problem (1) Pulmonary embolism Current Visit: Yes Status: Acute Assessment & Plan: nonoccluding, home on eliquis Code(s): I26.99 - OTHER PULMONARY EMBOLISM WITHOUT ACUTE COR PULMONALE (2) COPD exacerbation Current Visit: Yes Status: Acute Assessment & Plan: home on levaquin and prednisone Code(s): J44.1 - CHRONIC OBSTRUCTIVE PULMONARY DISEASE W (ACUTE) EXACERBATION (3) Chronic hypoxemic respiratory failure Current Visit: No Status: Chronic (4) Diabetes mellitus with hyperglycemia Current Visit: No Status: Chronic Code(s): E11.65 - TYPE 2 DIABETES MELLITUS WITH HYPERGLYCEMIA - Discharge Disposition: Home, Self-Care Condition: Good Prescriptions: New Prednisone 20 mg [Deltasone 20 mg] 20 mg PO UD #18 tablet Apixaban [Eliquis] 5 mg PO BID #60 tablet levoFLOXacin [Levofloxacin] 750 mg PO DAILY #3 tablet Continue Pravastatin Sodium 20 mg PO DAILY Potassium Chloride 10 Meq Tab* [Klor Con 10 MEQ] 20 meq PO BID Paroxetine HCl 20 mg [Paxil 20 MG] 20 mg PO DAILY Metformin HCl 500 mg [Glucophage 500 MG] 1,000 mg PO BIDWM Insulin Degludec [Tresiba Flextouch U-200] 80 unit SQ BID Insulin Aspart [Novolog] 25 unit SQ TIDWM Gabapentin 600 mg PO TID Furosemide 40 mg [Lasix 40 MG] 40 mg PO DAILY Famotidine 20 mg [Pepcid 20 MG] 20 mg PO BID Carvedilol 6.25 mg [Coreg 6.25 MG] 6.25 mg PO BID Hydrocodone/APAP 5-325 Tab^^^ [[place] 5-325 Tablet^^^] 1 tab PO Q6HPRN PRN #60 tablet PRN Reason: Pain Exenatide Microspheres [Bydureon Bcise] 2 mg SQ FR Aspirin/Caffeine [Agustín Back-Body 500-32.5 mg] 2 tab PO HS Umeclidinium [place] [Incruse Ellipta] 62.5 mcg IH QAM Additional Instructions: [facility] HAS BEEN ARRANGED. THEY WILL CALL TO MAKE ARRANGEMENTS TO SEE YOU. THEIR PHONE NUMBER IS [phone]. REFERRAL WAS ALSO SENT TO [facility] TO SEE IF YOU QUALIFY FOR ANY ASSISTANCE THRU YOUR MEDICAID Follow up with: MARZENA ATWOOD MD [Primary Care Provider] - 1 Week
[2020-12-30 11:35] VITALS: BP 125/59; PULSE 70; O2SAT 96
== END 2020-12-30 17:20 | disposition home or self-care (01) ==
LOC: ED 12:36 → MED SURG 17:20
PROVIDERS: ADMIT Family Medicine; ATTEND Family Medicine
DX: I26.99 Other pulmonary embolism without acute cor pulmonale (principal); J44.1 Chronic obstructive pulmonary disease with (acute) exacerbation; Z99.81 Dependence on supplemental oxygen; Z79.899 Other long term (current) drug therapy; I10 Essential (primary) hypertension; E78.00 Pure hypercholesterolemia, unspecified; J96.11 Chronic respiratory failure with hypoxia; E11.65 Type 2 diabetes mellitus with hyperglycemia; Z20.828 Contact with and (suspected) exposure to other viral communicable diseases
CPT/HCPCS: 36000; 36415; 71045; 71260; 80048; 80053; 81001; 82150; 82947; 83605; 83690; 83735; 83880; 84134; 84484; 85025; 85027; 85379; 85610; 87040; 87077; 87086; 87186; 87400; 93005; 94640; 94660; 94760; 96374; 99284; G0378; U0003; J1650; J1817; J1956; J2930; J7609; A9270-GY

== ENCOUNTER 2021-01-26 14:57 | Emergency (ER) | payer MEDICARE ==
[2021-01-26] MEDS ORDERED: Sodium Chloride 0.9% 1000 ML 1,000 ML IV STA (15:02)
[2021-01-26] MEDS ORDERED: Sodium Chloride 0.9% 1000 ML 1,000 ML ONE (15:13)
--- NOTE | 2021-01-26 15:22 | XRAY ---
Indication: Chest pain. Short of breath. Comparison: December 28, 2020. Portable chest again demonstrates cardiomegaly, central vascular prominence, right infrahilar infiltrate/atelectasis, and a few right lung calcified granulomas. No new cardiopulmonary abnormalities.
[2021-01-26 15:26] LABS: Hematocrit 44.7 % (35-47); Hemoglobin 13.9 gm/dl (12.0-16.0); Mean Cell Volume 86.1 fl (78-100); Mean Corpuscular Hemoglobin 26.8 pg (26-32); Mean Corpuscular Hgb Concent. 31.1 g/dl (32-36); Mean Platelet Volume 10.2 fl (7.5-11.0); Platelet Count 255 K/mm3 (150-450); Red Blood Count 5.19 M/mm3 (4.1-5.4); Red Cell Distribution Width 18.7 % (11.5-14.0); White Blood Count 5.2 K/mm3 (4.0-10.5)
[2021-01-26 15:52] LABS: ALBUMIN 3.8 g/dL (3.5-5.0); ALKALINE PHOSPHATASE 98 U/L (38-126); ANION GAP 15.4 MEQ/L (5-15); BLOOD UREA NITROGEN 18 mg/dL (7-17); CHLORIDE 100 mmol/L (98-107); Calcium 9.4 mg/dL (8.4-10.2); Carbon Dioxide 29 mmol/L (22-30); Creatinine 1 0.63 mg/dL (0.52-1.04); EST GLOMERULAR FILTRATION RATE > 60.0 ML/MIN; Glucose 281 mg/dL (74-106); NT PRO BNP 124 pg/mL (0-900); Potassium 4.4 mmol/L (3.5-5.1); SGOT/AST 22 U/L (14-36); SGPT/ALT 18 U/L (0-35); SODIUM 140 mmol/L (137-145); Total Protein 6.5 g/dL (6.3-8.2)
--- NOTE | 2021-01-26 15:53 | ERPHSYRPT ---
- History of Present Illness Time Seen by Provider: 01/26/21 15:20 Historian: patient Exam Limitations: no limitations Patient Subjective Stated Complaint: Pt c/o of right sided chest pain that radiates to her back, pt wears 4L of oxygen at home and she still felt SOB Triage Nursing Assessment: Pt brought to the ER by EMS, vitals wnl, pain to rig ht sided chest that radiates to her back and states that it's hard to get a good breath, placed on 4L of oxygen and as 93%, denies N&V, skin n/w/d, rates head pain as 5/10, doesn't appear to be in any distress Physician History: Patient is a 60-year-old female presents to our emergency department via EMS for evaluation of right-sided chest pain. Chest pain started this morning. Chest pain arrived as an ache that radiates to her back. Associated nausea vomiting or diaphoresis. Patient has a history of COPD. Patient wears oxygen at home. Patient reports her oxygen requirement is 4 L 24 hours a day. Oxygen saturation on 4 L is 93%. Patient states in spite of wearing her oxygen is normal she feels short of breath. Patient has a history of diabetes. Patient is a left below-knee amputee. Timing/Duration: today Activities at Onset: none Quality: aching Location: other (Right side of chest.) Chest Pain Radiation: back Severity of Pain-Max: moderate Severity of Pain-Current: mild Modifying Factors: Improves With: nothing Associated Symptoms: shortness of breath Prior Chest Pain/Cardiac Workup: recent hospitalization Nitro Today/Relief: no nitro taken today Aspirin Treatment Today: no aspirin today Allergies/Adverse Reactions: No Known Drug Allergies Allergy (Verified 01/26/21 15:16) Home Medications: Carvedilol 6.25 mg [Coreg 6.25 MG] 6.25 mg PO BID 01/14/20 [History] Famotidine 20 mg [Pepcid 20 MG] 20 mg PO BID 01/14/20 [History] Furosemide 40 mg [Lasix 40 MG] 40 mg PO DAILY 01/14/20 [History] Gabapentin 600 mg PO TID 01/14/20 [History] Insulin Aspart [Novolog] 25 unit SQ TIDWM 01/14/20 [History] Insulin Degludec [Tresiba Flextouch U-200] 80 unit SQ BID 01/14/20 [History] Metformin HCl 500 mg [Glucophage 500 MG] 1,000 mg PO BIDWM 01/14/20 [History] Paroxetine HCl 20 mg [Paxil 20 MG] 20 mg PO DAILY 01/14/20 [History] Potassium Chloride 10 Meq Tab* [Klor Con 10 MEQ] 20 meq PO BID 01/14/20 [History] Pravastatin Sodium 20 mg PO DAILY 01/14/20 [History] Aspirin/Caffeine [Agustín Back-Body 500-32.5 mg] 2 tab PO HS 12/28/20 [History] Exenatide Microspheres [Bydureon Bcise] 2 mg SQ FR 12/28/20 [History] Umeclidinium [place] [Incruse Ellipta] 62.5 mcg IH QAM 12/28/20 [History] Hx Tetanus, Diphtheria Vaccination/Date Given: No Hx Influenza Vaccination/Date Given: Yes Hx Pneumococcal Vaccination/Date Given: Yes Travel Risk - International Travel Have you traveled outside of the country in past 3 weeks: No - Coronavirus Screening Are you exhibiting any of the following symptoms?: No Close contact with a COVID-19 positive Pt in past 14-21 Days: No - Vaccine Status Have you recieved a Covid-19 vaccination: No - Review of Systems Constitutional: No Symptoms, No Fever, No Chills Eyes: No Symptoms Ears, Nose, & Throat: No Symptoms Respiratory: No Symptoms, No Cough, No Dyspnea Cardiac: No Symptoms, No Chest Pain, No Edema, No Syncope Abdominal/Gastrointestinal: No Symptoms, No Abdominal Pain, No Nausea, No Vomiting, No Diarrhea Genitourinary Symptoms: No Symptoms, No Dysuria Musculoskeletal: No Symptoms, No Back Pain, No Neck Pain Skin: No Symptoms, No Rash Neurological: No Symptoms, No Dizziness, No Focal Weakness, No Sensory Changes Psychological: No Symptoms Endocrine: No Symptoms Hematologic/Lymphatic: No Symptoms Immunological/Allergic: No Symptoms All Other Systems: Reviewed and Negative - Past Medical History Pertinent Past Medical History: Yes Neurological History: No Pertinent History ENT History: No Pertinent History Cardiac History: High Cholesterol, Hypertension Respiratory History: COPD, Pulmonary Embolism, Sleep Apnea Endocrine Medical History: Diabetes Type II Musculoskeletal History: No Pertinent History GI Medical History: Hemorrhoids History: No Pertinent History Psycho-Social History: Depression, Anxiety Female Reproductive Disorders: No Pertinent History Other Medical History: L Below knee amputation r/t diabetes - Past Surgical History Past Surgical History: Yes Neuro Surgical History: No Pertinent History Cardiac: No Pertinent History Respiratory: No Pertinent History Gastrointestinal: Cholecystectomy Genitourinary: No Pertinent History Musculoskeletal: Amputation, Prosthesis Female Surgical History: Hysterectomy, Tubal Ligation Other Surgical History: below knee amputation left leg / r/t diabetes - Social History Smoking Status: Former smoker How long have you smoked: 30 years Exposure to second hand smoke: Yes Drug Use: none Patient Lives Alone: Yes - Nursing Vital Signs Nursing Vital Signs: Initial Vital Signs Temperature 98.0 F 01/26/21 15:01 Pulse Rate 66 01/26/21 15:01 Respiratory Rate 19 01/26/21 15:01 Blood Pressure 101/60 01/26/21 15:01 O2 Sat by Pulse Oximetry 97 01/26/21 15:01 Pain Scale Pain Intensity 5 - Physical Exam General Appearance: no apparent distress, other (Patient sitting up in bed. She is conversant well-appearing and in no acute distress.) Eye Exam: PERRL/EOMI, eyes nml inspection, scleral icterus Ears, Nose, Throat Exam: normal ENT inspection, TMs normal, pharynx normal Neck Exam: normal inspection, non-tender, supple, full range of motion Respiratory Exam: diminished breath sounds, rhonchi, No other Cardiovascular Exam: regular rate/rhythm, normal heart sounds, normal peripheral pulses Gastrointestinal/Abdomen Exam: soft, normal bowel sounds, tenderness, distention, organomegaly Rectal Exam: deferred Back Exam: normal inspection, normal range of motion Extremity Exam: normal inspection, normal range of motion, amputations, other (Left below-knee amputation.), No pelvis stable Neurologic Exam: alert, oriented x 3, cooperative, jet dyeing machine tender II-XII nml as tested, normal mood/affect, other (Left below-knee amputation), No motor deficits, No sensory deficit, No disoriented, No confusion, No agitation, No motor weakness, No facial droop Skin Exam: normal color SpO2 Interpretation: normal SpO2: 97 O2 Delivery: Room Air - Course Nursing assessment & vital signs reviewed: Yes EKG Interpreted by Me: RATE (66), Sinus Rhythm, NORMAL AXIS, NORMAL INTERVALS - Radiology Exams Chest X-ray Interpretation: Teleradiologist Report (Formal chest x-ray demonstrates cardiomegaly, central vascular prominence, right infrahilar infiltrates/atelectasis, and a few right lung calcified granulomas. No new cardiopulmonary abnormalities.) Ordered Tests: Active Orders 24 hr Category Date Time Status [employer] Supervisor STAT Care 01/26/21 15:03 Active EKG-ER Only STAT Care 01/26/21 15:02 Active IV Insertion STAT Care 01/26/21 15:02 Active Pulse Oximetry (ED) STAT Care 01/26/21 15:02 Active CHEST 1 VIEW (PORTABLE) Stat Exams 01/26/21 15:03 Completed CBC W DIFF Stat Lab 01/26/21 15:20 Completed CMP Stat Lab 01/26/21 15:20 Completed Manual Differential NC Stat Lab 01/26/21 15:20 Completed NT PRO BNP Stat Lab 01/26/21 15:20 Completed TROPONIN Q3H Lab 01/26/21 15:20 Completed TROPONIN Q3H Lab 01/26/21 18:27 Completed TROPONIN Q3H Lab 01/26/21 21:15 Ordered TROPONIN Q3H Lab 01/27/21 00:15 Ordered TROPONIN Q3H Lab 01/27/21 03:15 Ordered Respiratory Therapy Assessment DAILY RT 01/26/21 17:17 Completed Medication Summary Discontinued Medications Generic Name Dose Route Start Last Admin Trade Name Freq PRN Reason Stop Dose Admin Albuterol/Ipratropium 3 ml 01/26/21 16:59 01/26/21 17:19 Duoneb 0.5-3 Mg/3 Ml Neb IH 01/26/21 17:00 3 ml STAT ONE Administration Albuterol/Ipratropium Confirm 01/26/21 17:16 Duoneb 0.5-3 Mg/3 Ml Neb Administered 01/26/21 17:17 Dose 3 ml IH .STK-MED ONE Aspirin 324 mg 01/26/21 15:54 01/26/21 16:17 Baby Aspirin 81 Mg Chew PO 01/26/21 15:55 324 mg STAT ONE Administration Aspirin Confirm 01/26/21 16:16 Baby Aspirin 81 Mg Chew Administered 01/26/21 16:17 Dose 324 mg .ROUTE .STK-MED ONE Sodium Chloride 1,000 mls @ 999 mls/hr 01/26/21 15:02 01/26/21 17:23 Sodium Chloride 0.9% 1000 Ml IV 01/26/21 16:02 Infused .Q1H1M STA Infusion Sodium Chloride Confirm 01/26/21 15:13 Sodium Chloride 0.9% 1000 Ml Administered 01/26/21 15:14 Dose 1,000 mls @ ud .ROUTE .STK-MED ONE Nitroglycerin 1 gm 01/26/21 15:55 01/26/21 16:17 Nitro-Bid 2% Ud Packets TOP 01/26/21 15:56 1 gm STAT ONE Administration Nitroglycerin Confirm 01/26/21 16:16 Nitro-Bid 2% Ud Packets Administered 01/26/21 16:17 Dose 1 gm .ROUTE .STK-MED ONE Lab/Rad Data: Laboratory Result Diagrams 01/26/21 15:20 01/26/21 15:20 Laboratory Results 01/26/21 01/26/21 01/26/21 Range/Units 18:27 15:20 15:20 WBC (4.0-10.5) K/mm3 RBC (4.1-5.4) M/mm3 Hgb (12.0-16.0) gm/dl Hct (35-47) % MCV (78-100) fl MCH (26-32) pg MCHC (32-36) g/dl RDW (11.5-14.0) % Plt Count (150-450) K/mm3 MPV (7.5-11.0) fl Segmented Neutrophils (36.0-66.0) % Band Neutrophils (0.0-2.0) % Lymphocytes (Manual) (24-44) % Monocytes (Manual) (0.0-12.0) % Eosinophils (Manual) (0.00-3.0) % Platelet Estimate (NORMAL) RBC Morphology Sodium 140 (137-145) mmol/L Potassium 4.4 (3.5-5.1) mmol/L Chloride 100 (98-107) mmol/L Carbon Dioxide 29 (22-30) mmol/L Anion Gap 15.4 H (5-15) MEQ/L BUN 18 H (7-17) mg/dL Creatinine 0.63 (0.52-1.04) mg/dL Estimated GFR > 60.0 ML/MIN Glucose 281 H (74-106) mg/dL Calcium 9.4 (8.4-10.2) mg/dL Total Bilirubin 0.70 (0.2-1.3) mg/dL AST 22 (14-36) U/L ALT 18 (0-35) U/L Alkaline Phosphatase 98 (38-126) U/L Troponin I < 0.012 < 0.012 (0.000-0.034) ng/mL NT-Pro-B Natriuret Pep 124 (0-900) pg/mL Serum Total Protein 6.5 (6.3-8.2) g/dL Albumin 3.8 (3.5-5.0) g/dL 01/26/21 Range/Units 15:20 WBC 5.2 (4.0-10.5) K/mm3 RBC 5.19 (4.1-5.4) M/mm3 Hgb 13.9 (12.0-16.0) gm/dl Hct 44.7 (35-47) % MCV 86.1 (78-100) fl MCH 26.8 (26-32) pg MCHC 31.1 L (32-36) g/dl RDW 18.7 H (11.5-14.0) % Plt Count 255 (150-450) K/mm3 MPV 10.2 (7.5-11.0) fl Segmented Neutrophils 63 (36.0-66.0) % Band Neutrophils 1 (0.0-2.0) % Lymphocytes (Manual) 27 (24-44) % Monocytes (Manual) 7 (0.0-12.0) % Eosinophils (Manual) 2 (0.00-3.0) % Platelet Estimate NORMAL (NORMAL) RBC Morphology NORMAL Sodium (137-145) mmol/L Potassium (3.5-5.1) mmol/L Chloride (98-107) mmol/L Carbon Dioxide (22-30) mmol/L Anion Gap (5-15) MEQ/L BUN (7-17) mg/dL Creatinine (0.52-1.04) mg/dL Estimated GFR ML/MIN Glucose (74-106) mg/dL Calcium (8.4-10.2) mg/dL Total Bilirubin (0.2-1.3) mg/dL AST (14-36) U/L ALT (0-35) U/L Alkaline Phosphatase (38-126) U/L Troponin I (0.000-0.034) ng/mL NT-Pro-B Natriuret Pep (0-900) pg/mL Serum Total Protein (6.3-8.2) g/dL Albumin (3.5-5.0) g/dL - Progress Progress: improved Air Movement: good Progress Note: Patient reassessed. She is well. Patient ambulated in our ED. Patient oxygen saturation without oxygen on room air was between 94 and 98%. Patient had no shortness of breath. Troponin negative x2. Chest x-ray is essentially negative for acute cardiopulmonary pathology. Case discussed with Dr. Atwood. We will discharge patient home. Patient agrees to follow-up with Dr. Atwood within 48 hours for reevaluation. Patient otherwise voices no other complaints concerns at this time. Patient states he is ready for discharge. Portions of this note were created with voice recognition technology. There may be grammatical, spelling, punctuation or sound alike errors 01/26/21 19:16 01/26/21 19:18 Patient received a breathing treatment in our ED. Patient symptoms resolved. Patient has no pleuritic chest pain or pain with deep inspiration. Vitals are stable. A prescription for albuterol inhaler was forwarded the patient's pharmacy. Blood Culture(s) Obtained: No Antibiotics given: No Discussed with Dr.: Yocasta Will see patient in: office Counseled pt/family regarding: lab results, diagnosis, need for follow-up, rad results - Departure Departure Disposition: Home Clinical Impression: Cardiomegaly, central vascular prominence, Lung granuloma Condition: Stable Critical Care Time: No Referrals: MARZENA ATWOOD MD [Primary Care Provider] - Additional Instructions: Discharge/Care Plan TEMINIK PANDEY was seen on 01/26/21 in the Emergency Room. The patient was counseled regarding Diagnosis,Lab results, Imaging studies, need for follow up and when to return to the Emergency Room. Prescriptions given: Discharge Note I have spoken with the patient and/or caregivers. I have explained the patient's condition, diagnosis and treatment plan based on the information available to me at this time. I have answered the patient's and/or caregiver's questions and addressed any concerns. The patient and/or caregivers have as good understanding of the patient's diagnosis, condition and treatment plan as can be expected at this point. The vital signs have been stable. The patient's condition is stable and appropriate for discharge from the emergency department. The patient will pursue further outpatient evaluation with the primary care physician or other designated or consulting physician as outlined in the discharge instructions. The patient and/or caregivers are agreeable to this plan of care and follow-up instructions have been explained in detail. The patient and/or caregivers have received these instruction. The patient/and or caregivers are aware that any significant change in condition or worsening of symptoms should prompt an immediate return to this or the closest emergency department or call 911. Prescriptions: Albuterol 8 gm Mdi Hfa [Ventolin Hfa MDI] 8 gm IH Q4H #1 [email or web address]
[2021-01-26] MEDS ORDERED: BABY ASPIRIN 81 MG CHEW PO ONE (15:54)
[2021-01-26] MEDS ORDERED: NITRO-BID 2% UD PACKETS TOP ONE (15:55)
[2021-01-26 16:07] LABS: BAND 1 % (0.0-2.0); Eosinophil 2 % (0.00-3.0); Lymphocytes 27 % (24-44); Monocyte 7 % (0.0-12.0); Neutrophils 63 % (36.0-66.0); Total Cells Counted 100
[2021-01-26 16:08] LABS: Platelet Estimate NORMAL (NORMAL)
[2021-01-26] MEDS ORDERED: NITRO-BID 2% UD PACKETS ONE (16:16)
[2021-01-26] MEDS ORDERED: BABY ASPIRIN 81 MG CHEW ONE (16:16)
[2021-01-26] MEDS ORDERED: DUONEB 0.5-3 MG/3 ml Neb IH ONE ×2 (16:59→17:16)
[2021-01-26 19:19] VITALS: O2SAT 97
[2021-01-26 20:32] VITALS: BP 120/70; PULSE 65
== END 2021-01-26 21:05 | disposition home or self-care (01) ==
LOC: ED 14:57
DX: I51.7 Cardiomegaly (principal); J84.9 Interstitial pulmonary disease, unspecified; J84.10 Pulmonary fibrosis, unspecified; R07.9 Chest pain, unspecified; J44.9 Chronic obstructive pulmonary disease, unspecified; R06.02 Shortness of breath; E11.9 Type 2 diabetes mellitus without complications; Z79.899 Other long term (current) drug therapy; I10 Essential (primary) hypertension; G47.30 Sleep apnea, unspecified
CPT/HCPCS: 36415; 71045; 80053; 83880; 84484; 85025; 93005; 93041; 94640; 94760; 96360; 99284; A9270-GY

== ENCOUNTER 2021-09-21 16:21 | Emergency (ER) | payer MEDICARE ==
[2021-09-21 16:32] VITALS: BP 106/63; PULSE 61; O2SAT 95
[2021-09-21] MEDS ORDERED: XYLOCAINE HCl Viscous ONE (16:46)
--- NOTE | 2021-09-21 17:01 | ERPHSYRPT ---
- History of Present Illness Time Seen by Provider: 09/21/21 16:35 Source: patient Exam Limitations: no limitations Patient Subjective Stated Complaint: Pt states "I have a piece of hearing aide stuck in my right ear." Triage Nursing Assessment: Pt presented alert and oriented X 3, skin pwd Pt able to speak in clear full sentences pt in no apparent respiratory distress. Pt resting comfortably on her wheelchar. Physician History: Patient is a 61-year-old white female who presents with a piece of her hearing aid stuck in her right ear. It has been present there for almost a week and is very tender Timing/Duration: weeks (1) ENT Location: ear (R) Prearrival Treatment: no prearrival treatment Modifying Factors: Improves With: nothing Associated Symptoms: ear pain (R) Allergies/Adverse Reactions: No Known Drug Allergies Allergy (Verified 01/26/21 15:16) Home Medications: Carvedilol 6.25 mg [Coreg 6.25 MG] 6.25 mg PO BID 01/14/20 [History] Famotidine 20 mg [Pepcid 20 MG] 20 mg PO BID 01/14/20 [History] Furosemide 40 mg [Lasix 40 MG] 40 mg PO DAILY 01/14/20 [History] Gabapentin 600 mg PO TID 01/14/20 [History] Insulin Aspart [Novolog] 25 unit SQ TIDWM 01/14/20 [History] Insulin Degludec [Tresiba Flextouch U-200] 80 unit SQ BID 01/14/20 [History] Metformin HCl 500 mg [Glucophage 500 MG] 1,000 mg PO BIDWM 01/14/20 [History] Paroxetine HCl 20 mg [Paxil 20 MG] 20 mg PO DAILY 01/14/20 [History] Potassium Chloride 10 Meq Tab* [Klor Con 10 MEQ] 20 meq PO BID 01/14/20 [History] Pravastatin Sodium 20 mg PO DAILY 01/14/20 [History] Aspirin/Caffeine [Agustín Back-Body 500-32.5 mg] 2 tab PO HS 12/28/20 [History] Exenatide Microspheres [Bydureon Bcise] 2 mg SQ FR 12/28/20 [History] Umeclidinium [place] [Incruse Ellipta] 62.5 mcg IH QAM 12/28/20 [History] Hx Tetanus, Diphtheria Vaccination/Date Given: No Hx Influenza Vaccination/Date Given: Yes Hx Pneumococcal Vaccination/Date Given: Yes Immunizations Up to Date: Yes Travel Risk - International Travel Have you traveled outside of the country in past 3 weeks: No - Coronavirus Screening Are you exhibiting any of the following symptoms?: No Close contact with a COVID-19 positive Pt in past 14-21 Days: No - Vaccine Status Have you recieved a Covid-19 vaccination: No - Review of Systems Constitutional: No Fever, No Chills Ears, Nose, & Throat: Ear Pain (Right ear pain) Respiratory: No Symptoms Cardiac: No Symptoms Abdominal/Gastrointestinal: No Symptoms Genitourinary Symptoms: No Symptoms Musculoskeletal: No Symptoms Skin: No Symptoms Neurological: No Symptoms Psychological: No Symptoms Endocrine: No Symptoms Hematologic/Lymphatic: No Symptoms, Easy Bruising - Past Medical History Pertinent Past Medical History: Yes Neurological History: No Pertinent History ENT History: No Pertinent History Cardiac History: High Cholesterol, Hypertension Respiratory History: COPD, Pulmonary Embolism, Sleep Apnea Endocrine Medical History: Diabetes Type II Musculoskeletal History: No Pertinent History GI Medical History: Hemorrhoids History: No Pertinent History Psycho-Social History: Depression, Anxiety Female Reproductive Disorders: No Pertinent History Other Medical History: L Below knee amputation r/t diabetes - Past Surgical History Past Surgical History: Yes Neuro Surgical History: No Pertinent History Cardiac: No Pertinent History Respiratory: No Pertinent History Gastrointestinal: Cholecystectomy Genitourinary: No Pertinent History Musculoskeletal: Amputation, Prosthesis Female Surgical History: Hysterectomy, Tubal Ligation Other Surgical History: below knee amputation left leg / r/t diabetes - Social History Smoking Status: Former smoker How long have you smoked: 30 years Exposure to second hand smoke: Yes Drug Use: none Patient Lives Alone: Yes - Nursing Vital Signs Nursing Vital Signs: Initial Vital Signs Temperature 97.4 F 09/21/21 16:27 Pulse Rate 61 09/21/21 16:27 Respiratory Rate 18 09/21/21 16:27 Blood Pressure 106/63 09/21/21 16:27 O2 Sat by Pulse Oximetry 95 09/21/21 16:27 Pain Scale Pain Intensity 8 - Physical Exam General Appearance: mild distress Eye Exam: bilateral eye: normal inspection, PERRL, EOMI Ear Exam: right ear: foreign body (Plastic portion of the hearing aid removed with bayonet forceps with great difficulty), bilateral ear: auricle normal, canal normal, TM normal Nasal Exam: normal inspection Neck Exam: normal inspection, non-tender, supple Neurologic Exam: alert, oriented x 3, cooperative Skin Exam: normal color, warm, dry, rash SpO2 Interpretation: normal SpO2: 95 O2 Delivery: Room Air Procedures - Additional Procedures Progress: Foreign body removed from the right canal with difficulty. - Course Nursing assessment & vital signs reviewed: Yes Ordered Tests: Medication Summary Discontinued Medications Generic Name Dose Route Start Last Admin Trade Name Freq PRN Reason Stop Dose Admin Lidocaine HCl Confirm 09/21/21 16:46 Lidocaine Hcl Viscous 1 Ml Administered 09/21/21 16:47 Dose 5 ml .ROUTE .OpenCounter ONE - Progress Progress: improved - Departure Departure Disposition: Home Clinical Impression: Foreign body in right ear Condition: Stable Critical Care Time: No Referrals: ENVIVE,ENVIVE [Primary Care Provider] - Follow up/PCP as directed Instructions: Removing Objects Stuck in the Ear Prescriptions: Aayush/Baci/Poly/Hc Ear Susp [Cortisporin Ear Drops 10 ml Suspension] 2 drops OT TID 4 Days #10 ml
[2021-09-21] MEDS ORDERED: XYLOCAINE VISCOUS 2% 20 ML CUP PO ONE (17:26)
== END 2021-09-21 17:18 | disposition home or self-care (01) ==
LOC: ED 16:21
DX: T16.1XXA Foreign body in right ear, initial encounter (principal); X58.XXXA Exposure to other specified factors, initial encounter; E78.5 Hyperlipidemia, unspecified; I10 Essential (primary) hypertension; J44.9 Chronic obstructive pulmonary disease, unspecified; E11.9 Type 2 diabetes mellitus without complications; Z79.4 Long term (current) use of insulin; Z79.899 Other long term (current) drug therapy
CPT/HCPCS: 69200; 99283; A9270-GY

== ENCOUNTER 2021-12-03 09:45 | Emergency (ER) | payer MEDICARE ==
[2021-12-03 09:54] VITALS: O2SAT 96
--- NOTE | 2021-12-03 10:23 | ERPHSYRPT ---
- History of Present Illness Time Seen by Provider: 12/03/21 10:00 Source: patient Patient Subjective Stated Complaint: R rib pain since falling on Tuesday Triage Nursing Assessment: Arrives to ED via [facility] ambulance. Taken to room 5. Ambulated from EMS cot to ER stretcher with assistance. PT a&Ox3, cooperative, calm, changed into gown, placed on monitor, offered blanket. On 3L NC @ basline. All VSS. Pt reports R rib pain after a trip and fall on Tuesday. States R rib pain radiates around to back. No bruising or deformities noted. Pt states hurt to take a deep breath. Lung sounds are clear in all lobes. Skin PWD. Physician History: Patient is a 61-year-old female presents to our ED via EMS [facility] a [facility] for evaluation of right rib pain. Patient states she had a mechanical fall on Tuesday. Patient tripped on her wheelchair and fell with her right arm tucked against her right rib.. The fall was not associated with any neuro cardiovascular symptomology. Patient states for the last 3 days she has been experiencing right rib tenderness. No associated chest pain or shortness of breath. No nausea vomiting or diaphoresis. No dizziness or syncope. Pain tends to radiate towards her back. Patient feels she is otherwise at her baseline. Patient has a history of COPD and requires 3 L nasal cannula 24 hours a day. Patient otherwise voices no other complaints or concerns at this time. Patient took Tylenol for her rib pain approximately 1 hour prior to arrival. Patient states she is comfortable and does not want additional pain medication. Timing/Duration: day(s) (3 days) Severity: moderate Modifying Factors: Improves With: other (Pain reproduced with movement palpation.) Associated Symptoms: denies symptoms, No nausea, No vomiting, No shortness of breath, No diaphoresis, No cough, No chills, No chest pain, No fever, No headaches, No loss of appetite, No malaise, No syncope, No seizure, No weakness Allergies/Adverse Reactions: No Known Drug Allergies Allergy (Verified 12/03/21 10:05) Home Medications: Carvedilol [Coreg ] 6.25 mg PO BID 01/14/20 [History] Famotidine 20 mg [Pepcid 20 MG] 40 mg PO HS 01/14/20 [History] Furosemide 40 mg [Lasix 40 MG] 40 mg PO DAILY 01/14/20 [History] Gabapentin 600 mg PO TID 01/14/20 [History] Paroxetine HCl 20 mg [Paxil 20 MG] 20 mg PO DAILY 01/14/20 [History] Potassium Chloride Tab* [Klor Con] 20 meq PO BID 01/14/20 [History] Acetaminophen 325 mg [Tylenol 325 mg] 325 mg PO Q4HPRN PRN 12/01/21 [History] Albuterol 8 gm Mdi Hfa [Ventolin Hfa MDI] 2 puffs IH Q6H PRN PRN 12/01/21 [History] Dulaglutide [Trulicity] 0.75 mg SQ WEEKLY 12/01/21 [History] Insulin Aspart Prot/Insuln Asp [Novolog Mix 70-30 Flexpen Syrn] 20 unit SQ TID 12/01/21 [History] Insulin Degludec [Tresiba Flextouch U-100] 46 units SQ DAILY 12/01/21 [History] Magnesium Oxide 400 mg [Mag-Ox 400] 400 mg PO DAILY 12/01/21 [History] Tiotropium [place] Inhaler [Spiriva 18 Mcg/Cap Inhaler] 1 cap IH DAILY 12/01/21 [History] Hx Tetanus, Diphtheria Vaccination/Date Given: No Hx Influenza Vaccination/Date Given: Yes Hx Pneumococcal Vaccination/Date Given: Yes Travel Risk - International Travel Have you traveled outside of the country in past 3 weeks: No - Coronavirus Screening Are you exhibiting any of the following symptoms?: No Close contact with a COVID-19 positive Pt in past 14-21 Days: No - Vaccine Status Have you recieved a Covid-19 vaccination: Yes 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: [employer] - Vaccination Dates Date of 2cond Vaccination (if applicable): unknown - Review of Systems Constitutional: No Symptoms, No Fever, No Chills Eyes: No Symptoms Ears, Nose, & Throat: No Symptoms Respiratory: No Symptoms, No Cough, No Dyspnea Cardiac: No Symptoms, No Chest Pain, No Edema, No Syncope Abdominal/Gastrointestinal: No Symptoms, No Abdominal Pain, No Nausea, No Vomiting, No Diarrhea Genitourinary Symptoms: No Symptoms, No Dysuria Musculoskeletal: No Symptoms, No Back Pain, No Neck Pain Skin: No Symptoms, No Rash Neurological: No Symptoms, No Dizziness, No Focal Weakness, No Sensory Changes Psychological: No Symptoms Endocrine: No Symptoms Hematologic/Lymphatic: No Symptoms Immunological/Allergic: No Symptoms All Other Systems: Reviewed and Negative - Past Medical History Pertinent Past Medical History: Yes Neurological History: No Pertinent History ENT History: No Pertinent History Cardiac History: High Cholesterol, Hypertension Respiratory History: COPD, Pulmonary Embolism, Sleep Apnea Endocrine Medical History: Diabetes Type II Musculoskeletal History: No Pertinent History GI Medical History: Hemorrhoids History: No Pertinent History Psycho-Social History: Depression, Anxiety Female Reproductive Disorders: No Pertinent History Other Medical History: L Below knee amputation r/t diabetes - Past Surgical History Past Surgical History: Yes Neuro Surgical History: No Pertinent History Cardiac: No Pertinent History Respiratory: No Pertinent History Gastrointestinal: Cholecystectomy Genitourinary: No Pertinent History Musculoskeletal: Amputation, Prosthesis Female Surgical History: Hysterectomy, Tubal Ligation Other Surgical History: below knee amputation left leg / r/t diabetes - Social History Smoking Status: Former smoker How long have you smoked: 30 years Exposure to second hand smoke: Yes Drug Use: none Patient Lives Alone: Yes - Nursing Vital Signs Nursing Vital Signs: Initial Vital Signs Temperature 97.2 F 12/03/21 09:49 Pulse Rate 67 12/03/21 09:49 Respiratory Rate 16 12/03/21 09:49 O2 Sat by Pulse Oximetry 96 12/03/21 09:49 Pain Scale Pain Intensity 8 - Physical Exam General Appearance: no apparent distress, alert Eye Exam: PERRL/EOMI, eyes nml inspection Ears, Nose, Throat Exam: normal ENT inspection, TMs normal, pharynx normal, moist mucous membranes Neck Exam: normal inspection, non-tender, supple, full range of motion Respiratory Exam: normal breath sounds, lungs clear, airway intact, other (Tenderness to palpation to the right rib. Overlying soft tissue intact. Movement and palpation reproduce patient's symptoms. No chest pain), No chest tenderness, No respiratory distress Cardiovascular Exam: regular rate/rhythm, normal heart sounds, normal peripheral pulses Gastrointestinal/Abdomen Exam: soft, normal bowel sounds, No tenderness, No mass Back Exam: normal inspection, normal range of motion, No CVA tenderness, No vertebral tenderness Extremity Exam: normal inspection, normal range of motion, pelvis stable Neurologic Exam: alert, oriented x 3, cooperative, normal mood/affect, nml cerebellar function, nml station & gait, sensation nml, No motor deficits Skin Exam: normal color, warm, dry, No rash Lymphatic Exam: No adenopathy SpO2 Interpretation: normal SpO2: 96 O2 Delivery: Room Air - Course Nursing assessment & vital signs reviewed: Yes EKG Interpreted by Me: RATE (61), Sinus Rhythm (Left anterior fascicular block. Nonspecific T wave abnormalities. Sinus rhythm), NORMAL AXIS (Prolonged ND interval) - Radiology Exams Ribs X-ray Interpretation: Teleradiologist Report (Osteopenia degenerative changes along the spine. Calcified granuloma. No rib fractures observed) Ordered Tests: Active Orders 24 hr Category Date Time Status EKG-ER Only STAT Care 12/03/21 10:17 Active CHEST 2 VIEWS (PA AND LAT) Stat Exams 12/03/21 10:38 Completed RIBS BILATERAL (MIN 3 VIEWS) Stat Exams 12/03/21 09:52 Completed - Progress Progress: improved Progress Note: Patient reassessed. Pain improved with the Tylenol but patient asking for additional pain medication. Patient received a dose of Toradol in our ED. Rib x-ray negative for fracture. PA chest also negative. Bibasilar atelectasis observed. Patient is afebrile. Patient does not tachypneic. O2 sat is within normal limits. Patient resting comfortably with 3 L nasal cannula. Patient requires oxygen 24 hours/day. Patient states she is ready for discharge. Will discharge back to [facility]. Screening EKG performed. EKG appears similar to previous EKG performed on January 26, 2021 patient has no chest pain. No shortness of breath. Patient voices no other complaints or concerns at this time. Vital stable Blood pressure 139/88. O2 sat is 97%. Heart rate is 62 patient afebrile. Portions of this note were created with voice recognition technology. There may be grammatical, spelling, punctuation or sound alike errors 12/03/21 11:26 Counseled pt/family regarding: diagnosis, need for follow-up, rad results - Departure Departure Disposition: Home Clinical Impression: Rib contusion, Fall, Osteopenia, Lung granuloma Condition: Stable Critical Care Time: No Referrals: MARZENA ATWOOD MD [Primary Care Provider] - Follow up/PCP as directed Additional Instructions: Please follow-up with your family doctor within 48 hours for evaluation. Discharge/Care Plan TEMINIK PANDEY was seen on 12/03/21 in the Emergency Room. The patient was counseled regarding Diagnosis,Lab results, Imaging studies, need for follow up and when to return to the Emergency Room. Prescriptions given: Discharge Note I have spoken with the patient and/or caregivers. I have explained the patient's condition, diagnosis and treatment plan based on the information available to me at this time. I have answered the patient's and/or caregiver's questions and addressed any concerns. The patient and/or caregivers have as good understanding of the patient's diagnosis, condition and treatment plan as can be expected at this point. The vital signs have been stable. The patient's condition is stable and appropriate for discharge from the emergency department. The patient will pursue further outpatient evaluation with the primary care physician or other designated or consulting physician as outlined in the discharge instructions. The patient and/or caregivers are agreeable to this plan of care and follow-up instructions have been explained in detail. The patient and/or caregivers have received these instruction. The patient/and or caregivers are aware that any significant change in condition or worsening of symptoms should prompt an immediate return to this or the closest emergency department or call 911.
--- NOTE | 2021-12-03 10:50 | XRAY ---
Indication: Pain following fall. Comparison: None 2 view left and right ribs demonstrates osteopenia, mild degenerative changes throughout visualized spine, pulmonary calcified granulomas, and cholecystectomy clips. No other bony, articular, or soft tissue abnormalities. Chest reported separately.
--- NOTE | 2021-12-03 10:52 | XRAY ---
Indication: Pain and short of breath following fall. Comparison: March 02, 2021. Portable AP/lateral chest less inflated with new mild bibasilar infiltrates versus atelectasis. Stable right lung calcified granulomas. Heart not enlarged again with tortuous descending aorta. Bony thorax intact again with osteopenia and degenerative changes.
[2021-12-03 11:06] VITALS: BP 139/88; PULSE 60
[2021-12-03] MEDS ORDERED: TORAdol 30 mg Injection IM ONE (11:25)
[2021-12-03] MEDS ORDERED: TORAdol 30 mg Injection ONE (11:39)
[2021-12-03 13:10] LABS: INFLUENZA A NEGATIVE (NEGATIVE); INFLUENZA B NEGATIVE (NEGATIVE); RESPIRATORY SYNCTIAL VIRUS NEGATIVE (Negative); SARS-CoV-2 Xpert Express NEGATIVE (NEGATIVE)
== END 2021-12-03 13:54 | disposition home or self-care (01) ==
LOC: ED 09:45
DX: S20.211A Contusion of right front wall of thorax, initial encounter (principal); W01.0XXA Fall on same level from slipping, tripping and stumbling without subsequent striking against object, initial encounter; Y92.129 Unspecified place in nursing home as the place of occurrence of the external cause; M85.88 Other specified disorders of bone density and structure, other site; J84.10 Pulmonary fibrosis, unspecified; E78.5 Hyperlipidemia, unspecified; I10 Essential (primary) hypertension; J44.9 Chronic obstructive pulmonary disease, unspecified; E11.9 Type 2 diabetes mellitus without complications; Z79.4 Long term (current) use of insulin; Z79.899 Other long term (current) drug therapy; Z99.81 Dependence on supplemental oxygen
CPT/HCPCS: 0241U; 71046; 71110; 93005; 96372; 99284; J1885